=== PATIENT | female | born 1960 | race American Indian/Alaskan Native ===

== ENCOUNTER 2016-10-01 23:25 | Inpatient (IN) | payer OTHER ==
[2016-10-02] MEDS ORDERED: ZOFRAN IV ONE ×2 (01:22→04:35)
[2016-10-02] MEDS ORDERED: MORPHINE IV ONE ×2 (01:22→04:00)
--- NOTE | 2016-10-02 01:22 | Emergency Department Report ---
HPI - General Chief Complaint: Chest Pain Time Seen by Provider: 10/02/16 00:46 - HPI HPI: This is a 55-year-old Afro-Turkmen female presents to the emergency department by EMS from home with complaint of upper abdominal/epigastric pain has been going on for the past few hours after it started acutely at home. It is associated with some nausea, vomiting and diaphoresis. Patient did not take anything and did not receive anything for symptoms prior to presentation. Patient resents hypothermic after she was out in the rain and spent some time in the cold during transfer. Patient has a history of hypertension, DVT, kidney stones with ureteral stents. 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 She is on Eloquist but stopped taking it a few days ago as instructed as she is supposed to have a changing out of her ureteral stents the day after tomorrow by Dr. Seo, her urologist. Primary care doctor is a Dr. Rodriguez. She denies any dysuria, diarrhea, back pain, vaginal bleeding or discharge. No recent travel or sick contacts at home. She denies any history of DC, CVA. ED Past Medical Hx - Past Medical History Previous Medical History?: Yes Hx Hypertension: Yes (X 10 YRS) Hx Heart Attack/AMI: No Hx Congestive Heart Failure: Yes (2008) Hx Deep Vein Thrombosis: Yes (LEFT LEG 2011) Hx Renal Disease: Yes (CKD stage II) Hx Seizures: No Hx Kidney Stones: Yes Hx Asthma: No Hx HIV: No Additional medical history: Right BKA - Surgical History Past Surgical History?: Yes Additional Surgical History: August 2015 Arterial by-pass - Social History Smoking Status: Unknown if ever smoked Substance Use Type: None - Medications Home Medications: Home Medications Medication Instructions Recorded Confirmed Last Taken Type Amlodipine Besylate 2.5 mg PO DAILY 09/01/15 10/01/16 06/07/16 10:00 History 2.5MG Carvedilol 6.25 mg PO BID 09/01/15 10/01/16 06/07/16 10:00 History 6.25MG hydrALAZINE [Apresoline TAB] 25 mg PO TID 09/01/15 10/01/16 06/07/16 10:00 History 25MG Apixaban [Eliquis] 5 mg PO BID #60 tablet 05/10/16 10/01/16 09/29/16 Rx Cholecalciferol (Vitamin D3) 50,000 unit PO QWEEK 10/01/16 10/01/16 Unknown History [Vitamin D3] HYDROcodone/APAP 10-325 [[place] 1 tab PO Q6H PRN 10/01/16 10/01/16 Unknown History 10-325 mg TAB] ED Review of Systems ROS: Stated complaint: ABD PAIN Other details as noted in HPI Comment: All other systems reviewed and negative Constitutional: diaphoresis. denies: fever Eyes: denies: eye pain, eye discharge, vision change ENT: denies: ear pain, throat pain Respiratory: denies: cough, shortness of breath, wheezing Cardiovascular: denies: chest pain, palpitations Gastrointestinal: abdominal pain, nausea, vomiting Genitourinary: denies: urgency, dysuria, discharge Musculoskeletal: denies: back pain, joint swelling, arthralgia Skin: denies: rash, lesions Neurological: denies: headache, weakness, paresthesias Physical Exam - Physical Exam Vital Signs: Vital Signs 10/02/16 00:38 Temperature 90.8 F L Pulse Rate 82 Respiratory 20 Rate Blood Pressure 200/100 O2 Sat by Pulse 100 Oximetry Physical Exam: GENERAL: The patient is well-developed well-nourished. Patient has uncomfortable but is awake and alert. HEENT: Normocephalic. Atraumatic. Extraocular motions are intact. Patient has moist mucous membranes. Pupils equal reactive to light bilaterally. NECK: Supple. Trachea is midline. CHEST/LUNGS: Clear to auscultation. There is no respiratory distress noted. HEART/CARDIOVASCULAR: Regular. There is no tachycardia. There is no gallop rub or murmur. ABDOMEN: Abdomen is soft. Patient has upper abdominal and/or epigastric tenderness to palpation. No guarding or rebound tenderness. Patient has normal bowel sounds. There is no abdominal distention. SKIN: There is no rash. There is no diaphoresis. NEURO: The patient is awake, alert, and oriented. The patient is cooperative. The patient has no focal neurologic deficits. The patient has normal speech. MUSCULOSKELETAL: There is no tenderness or deformity. Chronic bilateral lower extremity amputation. There is no evidence of acute injury. ED Course Vital Signs 10/02/16 00:38 Temperature 90.8 F L Pulse Rate 82 Respiratory 20 Rate Blood Pressure 200/100 O2 Sat by Pulse 100 Oximetry ED Medical Decision Making - Lab Data Result diagrams: 10/02/16 01:03 10/02/16 01:03 - EKG Data -: EKG Interpreted by Me EKG shows normal: sinus rhythm, axis, intervals, QRS complexes (LVH), ST-T waves (nonspecific T waves) Rate: normal - EKG Data When compared to previous EKG there are: previous EKG unavailable Interpretation: LVH - Radiology Data Radiology results: report reviewed, image reviewed interpreted by me: Chest x-ray did not show any acute process. Heart is normal shape and size. No effusions. No pneumothorax. No signs of pneumonia seen. Abdominal x-ray shows some nonspecific bowel gas but no obvious signs of obstruction. CT of the abdomen and pelvis with IV contrast shows that the liver is enlarged and heterogenous in density suggesting fatty infiltration. No discrete masses seen. There are bilateral kidney cysts. There are stones in the lower pole left kidney. There is a left ureteral stent. There is no hydronephrosis. Stent is in good position. There are dilated and fluid-filled loops of small bowel without specific evidence of obstruction suggesting enteritis and generalized ileus. There is a large amount of stool in colon. There is no colonic obstruction. The appendix is normal. There is calcified plaque in the abdominal aorta. There is no aneurysm. Uterus and ovaries are unremarkable. There is no ascites, free air, abscess or adenopathy. - Medical Decision Making 55-year-old female presents with acute upper abdominal pain, nausea and vomiting. Patient's labs show a leukocytosis of about 20,000. Patient might have a mild UTI but it is not significant that I would think would cause a moderate to significant leukocytosis. Patient's vitals did not show any fever but the patient does have hypertensive urgency with a systolic greater than 200. He shouldn't has a bicarbonate level of about 19. She does have hyperglycemia but does not appear to have DKA or HHNK. Patient given IV fluid, Zofran, pain medication but has required multiple doses of all of that and still continues to have discomfort and nausea with vomiting. CT of the abdomen and pelvis shows potential for ileus versus enteritis. Patient has blood and urine culture sent and was started on some Levaquin for UTI and possible intra- abdominal pathology. Patient continues to have elevated blood pressure. She will be admitted to hospital for intractable nausea, vomiting and possible ileus. - Differential Diagnosis ileus, bowel obstruction, pancreatitis, enteritis, colitis Critical Care Time: No Critical care attestation.: If time is entered above; I have spent that time in minutes in the direct care of this critically ill patient, excluding procedure time. ED Disposition Clinical Impression: Intractable abdominal pain Intractable nausea and vomiting Qualifiers: Vomiting type: unspecified Qualified Code(s): R11.2 - Nausea with vomiting, unspecified Leukocytosis Qualifiers: Leukocytosis type: unspecified Qualified Code(s): D72.829 - Elevated white blood cell count, unspecified UTI (urinary tract infection) Qualifiers: Urinary tract infection type: acute cystitis Hematuria presence: without hematuria Qualified Code(s): N30.00 - Acute cystitis without hematuria Disposition: OP ADMITTED IP TO THIS HOSP Is pt being admited?: Yes Condition: Stable Time of Disposition: 05:59
[2016-10-02 01:33] LABS: Hemoglobin 13.1 gm/dl (10.1-14.3); Mean Corpuscular HGB Conc 32 % (30-34); Mean Corpuscular Hemoglobin 29 pg (28-32); Mean Corpuscular Volume 91 fl (79-97); Platelet Count 297 K/mm3 (140-440); Red Cell Distribution Width 15.1 % (13.2-15.2)
[2016-10-02 01:38] LABS: White Blood Count 21.2 K/mm3 (4.5-11.0)
[2016-10-02 02:07] LABS: Alanine Aminotransferase 20 units/L (7-56); Albumin 4.3 g/dL (3.9-5); Albumin/Globulin Ratio 1.3 %; Alkaline Phosphatase 79 units/L (35-129); BUN/Creatinine Ratio 25.45; Bilirubin,Total 0.3 mg/dL (0.1-1.2); Blood Urea Nitrogen 28 mg/dL (7-17); Calcium 9.9 mg/dL (8.4-10.2); Carbon Dioxide 19 mmol/L (22-30); Chloride 101.4 mmol/L (98-107); Glucose 254 mg/dL (65-100); Potassium 3.5 mmol/L (3.6-5.0); Sodium 142 mmol/L (137-145); Total Protein 7.7 g/dL (6.3-8.2)
[2016-10-02 02:08] LABS: Anion Gap 25 mmol/L
[2016-10-02 02:26] LABS: Bacteria,Urine 1+ /HPF (Negative); Bilirubin,Urine NEG (Negative); Blood,Urine MOD (Negative); Ketones,Urine TR mg/dL (Negative); Leukocyte Esterase,Urine LG (Negative); Mucus,Urine FEW /HPF; Nitrite,Urine NEG (Negative); Urobilinogen,Urine < 2.0 mg/dL (<2.0)
[2016-10-02 02:31] LABS: INR 1.04 (0.87-1.13); Partial Thromboplastin Time 31.8 Sec. (24.2-36.6)
[2016-10-02] MEDS ORDERED: LEVAQUIN 750MG/150ML 150 ML IV ONE (02:54)
--- NOTE | 2016-10-02 03:04 | Admit Criteria Form ---
Admission Criteria Documentation: CHEST PAIN Clinical Indications for Admission to Inpatient Care (Place 'X' for any and all applicable criteria): Admission is indicated for chest pain and ANY ONE of the following(1)(2)(3)(4)(5 ): [ ]I. Angina with acute coronary syndrome (Also use Myocardial Infarction or Angina guideline) [ ]II. Hemodynamic instability [ ]III. Angina needing acute intervention as indicated by ALL of the following( 11)(12): [ ]a) Unstable angina is present as indicated by angina that is ANY ONE of the following: [ ]i) New onset [ ]ii) Nocturnal [ ]iii) Prolonged at rest [ ]iv) Progressive [ ]b) Angina warrants acute intervention as indicated by ANY ONE of the following: [ ]i) Recurrent angina (e.g, not responding as previously to treatment) [ ]ii) Angina at rest or with low-level activities despite initial medical therapy [ ]iii) New or presumably new ST-segment depression on ECG [ ]iv) Signs or symptoms of heart failure (eg, dyspnea, pulmonary edema) [ ]v) New or worsening mitral regurgitation [ ]vi) Hemodynamic instability [ ]vii) Dangerous arrhythmia (eg, sustained ventricular tachycardia) [ ]viii) History of percutaneous coronary intervention within 6 months [ ]ix) History of coronary artery bypass graft surgery [ ]x) CHINEDU risk score of 2 or greater[A] [ ]xi) History of Diabetes(14) [ ]xii) High-risk cardiac ischemia findings on noninvasive testing (e.g, echocardiogram, treadmill testing, nuclear scan) [ ]xiii) Chronic renal insufficiency (ie, estimated GFR less than 60 mL/min/1.732m) [ ]xiv) Left ventricular ejection fraction less than 40% [ ]IV. Evidence of DE (eg, cardiac biomarkers positive, ST-segment elevation on ECG) also use Myocardial Infarction Criteria Form. [ ]V. Pulmonary edema [ ]. Respiratory distress [ ]VII. Chest pain indicative of serious diagnosis other than coronary artery disease (eg, aortic dissection) [ ]VIII. Contraindications and/or Inappropriate clinical situations for Observational Care in patients with Chest Pain, when ANY ONE of the following is required: [ ]a) Patient with risk factor for pulmonary embolism, acute coronary syndrome and myocardial infarction (18) [ ]b) Patient with Pulmonary embolism require an average LOS of 4.3 days, therefore emergency department observation management is inappropriate 18,23 [ ]c) Painful condition/s in the elderly, have the highest rate of recidivism after emergency department observation management (10.8%) 20,21,22 [ ]d) Elevated cardiac biomarker requires intensive and exhaustive care (19) [ X]IX. General contraindications and/or Inappropriate clinical situations for Observational Care in patients with Chest Pain, when ANY ONE of the following is required: [ ]a) Prediction of prolongation of LOS based on ANY ONE of the following may be considered as a contraindication for observational care 2, 3, 4, 5, 6, 7, 8, 9, 10, 11 [ ]i) Age > 65 yrs. [ ]ii) Patient arriving by ambulance [ ]iii) Patient with high acuity [ ]iv) Patient requiring vital sign monitoring [ ]v) Patient on IV medication [X ]b) Systolic blood pressures 180mmHg 3,12 [ ]c) Patient with altered mental status including delirium and other alteration of consciousness, (3) [ ]d) Patient whose discharge disposition will be to a long-term home or rehabilitation home should not be managed in Emergency Department Observation Unit. CMS rule requires 3 days hospital stay before such placement. 3,13 [ ]e) Patient with failure to thrive due to broad array of etiologies 3,16,17 [ ]f) Inability to ambulate 3,14 Extended stay beyond goal length of stay may be needed for (1)(28): [ ]a) Specific condition diagnosed after evaluation (eg, pulmonary embolism, aortic dissection) [ ]b) Unstable angina [ ]c) Continued suspicion of acute coronary syndrome with inability to complete needed cardiac evaluation (eg, patient clinically unable to undergo stress testing) [ ]d) Myocardial infarction (Contents from ANGINA and CHEST PAIN clinical indications for admission to inpatient care have been integrated in this form) The original [email or web address] content created by [employer] has been revised. The portions of the content which have been revised are identified through the use of italic text or in bold, and [facility] has neither reviewed nor approved the modified material. All other unmodified content is copyright [email or web address]. Please see references footnoted in the original [email or web address] edition 2016 Admission Criteria Met: Yes
[2016-10-02 03:21] LABS: Anisocytosis 1+; Basophils % (Manual) 0 % (0.0-1.8); Blastocytes % (Manual) 0 %; Diff Status Complete
[2016-10-02] MEDS ORDERED: MORPHINE ONE (03:58)
[2016-10-02] MEDS ORDERED: APRESOLINE IV ONE ×2 (04:00→05:24)
--- NOTE | 2016-10-02 04:16 | Cat Scan Report ---
FINAL REPORT PROCEDURE: CT ABDOMEN PELVIS W CON TECHNIQUE: Computerized axial tomography of the abdomen and pelvis was performed after the IV injection of iodinated nonionic contrast. HISTORY: Abd pain COMPARISON: No prior studies are available for comparison. FINDINGS: Visualized lower thorax: There is focal pleural thickening at the right lung base which is nonspecific.. Liver: The liver is enlarged and heterogeneous in density suggesting fatty infiltration. No discrete mass is seen.. Spleen: Normal size and attenuation. Gallbladder and biliary system: Normal. Pancreas: Normal. Adrenals: Normal. Kidneys: There are bilateral kidney cysts. There are stones in the lower pole of the left kidney. There is a left ureteral stent. There is no hydronephrosis. Stent is in good position.. GI tract: There are dilated and fluid-filled loops of small bowel without specific evidence of obstruction suggesting enteritis and generalized ileus. There is a large amount of stool in the colon. There is no colonic obstruction. The appendix is normal.. Lymph nodes and mesentery: Normal. Vasculature: There is calcified plaque in the abdominal aorta. There is no aneurysm.. Bladder: Normal. Reproductive organs: Uterus and ovaries are unremarkable.. Peritoneum: There is no ascites, free air, abscess or adenopathy.. Musculoskeletal structures: No significant abnormality. Other: None. IMPRESSION: The liver is enlarged and heterogeneous in density suggesting fatty infiltration. No discrete mass is seen.. There are bilateral kidney cysts. There are stones in the lower pole of the left kidney. There is a left ureteral stent. There is no hydronephrosis. Stent is in good position.. There are dilated and fluid-filled loops of small bowel without specific evidence of obstruction suggesting enteritis and generalized ileus. There is a large amount of stool in the colon. There is no colonic obstruction. The appendix is normal.. There is calcified plaque in the abdominal aorta. There is no aneurysm.. Uterus and ovaries are unremarkable.. There is no ascites, free air, abscess or adenopathy..
[2016-10-02] MEDS ORDERED: DILAUDID IV ONE (04:35)
--- NOTE | 2016-10-02 05:21 | XRay Report ---
FINAL REPORT PROCEDURE: XR CHEST 1V AP TECHNIQUE: Chest radiograph anteroposterior view. CPT 49564 HISTORY: CP COMPARISON: No prior studies are available for comparison. FINDINGS: Heart: Normal. Mediastinum/Vessels: Normal. Lungs/Pleural space: Normal. Bony thorax: No acute osseous abnormality. Life support devices: None. IMPRESSION: No acute cardiopulmonary abnormality.
--- NOTE | 2016-10-02 05:26 | XRay Report ---
FINAL REPORT PROCEDURE: XR ABDOMEN 2V TECHNIQUE: Abdominal series, including supine and upright AP views. HISTORY: Abd pain COMPARISON: No prior studies are available for comparison. FINDINGS: Bowel gas pattern:Nonobstructive . Masses or calcifications:None . Bony structures:No significant abnormality . Pneumoperitoneum:None . Other:There is a left ureteral stent which appears be in proper position.. IMPRESSION: There is no bowel obstruction, fecal impaction, bowel wall thickening or free air. There is a left ureteral stent in proper position..
[2016-10-02] MEDS ORDERED: DILAUDID IV PRN (05:43)
[2016-10-02] MEDS ORDERED: APRESOLINE IV PRN (05:44)
--- NOTE | 2016-10-02 06:01 | History and Physical Report ---
History of Present Illness Date of examination: 10/02/16 History of present illness: 55-year-old woman with a history of hypertension, peripheral vascular disease comes emergency room with complaints of abdominal pain which started in the mid abdomen and going down to the lower abdomen, intensity 7/10, some relief with IV pain medication given. She admits to nausea vomiting, unable to tolerate oral intake. She denies dysuria. Patient is scheduled for stent exchange tomorrow with urology Patient denies chest pain, palpitation, shortness of breath, cough, hematochezia , dysuria, frequency, focal weakness, dysarthria, fever chills, polydipsia polyuria, hot or cold intolerance, easy bruisability, or rash or bleeding from mucosal membrane, rhinorrhea, epistaxis, earache, tinnitus, blurry vision, eye discharge, anxiety, depression. Other review of systems negative PAST SURGICAL HISTORY: Femoropopliteal bypass, right leg amputation SOCIAL HISTORY: Occasional cigarettes, no alcohol or drugs FAMILY HISTORY: Hypertension Medications and Allergies Allergies Allergy/AdvReac Type Severity Reaction Status Date / Time No Known Allergies Allergy Verified 08/24/15 10:54 Home Medications Medication Instructions Recorded Confirmed Last Taken Type Amlodipine Besylate 2.5 mg PO DAILY 09/01/15 10/01/16 06/07/16 10:00 History 2.5MG Carvedilol 6.25 mg PO BID 09/01/15 10/01/16 06/07/16 10:00 History 6.25MG hydrALAZINE [Apresoline TAB] 25 mg PO TID 09/01/15 10/01/16 06/07/16 10:00 History 25MG Apixaban [Eliquis] 5 mg PO BID #60 tablet 05/10/16 10/01/16 09/29/16 Rx Cholecalciferol (Vitamin D3) 50,000 unit PO QWEEK 10/01/16 10/01/16 Unknown History [Vitamin D3] HYDROcodone/APAP 10-325 [[place] 1 tab PO Q6H PRN 10/01/16 10/01/16 Unknown History 10-325 mg TAB] Active Meds: Active Medications Hydralazine HCl (Apresoline) 5 mg IV Q6H PRN PRN Reason: Hypertension Hydromorphone HCl (Dilaudid) 2 mg IV Q4H PRN PRN Reason: Pain Sodium Chloride (Nacl 0.45% 1000 Ml) 1,000 mls @ 100 mls/hr IV DIRECT KANA Exam - Physical Exam Narrative exam: Gen. appearance: Patient lying in bed, no apparent distress HEENT: Normocephalic, atraumatic, pupils equally round and reactive to light, extraocular movement intact, and no sclericterus,. No JVD or thyromegaly or nodule,neck supple, no carotid bruit ,mucous membranes moist, no exudate or erythema Heart: S1, S2, regular rate and rhythm Lungs: Clear to auscultation bilaterally, breathing comfortable Abdomen: Positive bowel sounds, tender also on the right side of the abdomen and lower abdominal wall, nondistended, no organomegaly Extremity: No edema, cyanosis, clubbing Skin: No rash, nodules, warm, dry Neuro: Oriented 3, cranial nerves II-12 intact, speech is fluent, motor and sensory intact - Constitutional Vitals: Temp Pulse Resp BP Pulse Ox 97.8 F 78 20 142/96 100 10/02/16 04:00 10/02/16 05:31 10/02/16 05:28 10/02/16 05:31 10/02/16 05:28 Results - Labs CBC & Chem 7: 10/08/16 05:40 10/08/16 05:40 Labs: Abnormal lab results 10/02/16 10/02/16 10/02/16 Range/Units 01:03 01:03 01:50 WBC 21.2 H (4.5-11.0) K/mm3 Monocytes % (Manual) 12.0 H (0.0-7.3) % Seg Neutrophils # Man 12.9 H (1.8-7.7) K/mm3 Monocytes # (Manual) 2.5 H (0.0-0.8) K/mm3 Eosinophils # (Manual) 0.8 H (0.0-0.4) K/mm3 Potassium 3.5 L (3.6-5.0) mmol/L Carbon Dioxide 19 L (22-30) mmol/L BUN 28 H (7-17) mg/dL Glucose 254 H (65-100) mg/dL Urine WBC (Auto) 19.0 H (0.0-6.0) /HPF - Imaging and Cardiology CT scan - abdomen: report reviewed CT scan - pelvis: report reviewed Assessment and Plan Abdominal pain secondary to enteritis Urinary tract infection Hypokalemia Hyperglycemia History of kidney stone with stent, scheduled for stent replacement in the morning Hypertension uncontrolled Peripheral vascular disease Admits medicine Start IV fluids, IV dilaudid, IV rocephin Replete potassium, follow cultures, check HbAIc Consult urology Continue appropriate outpatient medications and start DVT with eliquis
[2016-10-02] MEDS: NACL 0.45% 1000 ML 1,000 ML IV SCH (06:24)
[2016-10-02] MEDS ORDERED: NACL 0.45% 1000 ML 1,000 ML IV SCH (07:00)
[2016-10-02] MEDS ORDERED: DULCOLAX PR PRN (08:51)
[2016-10-02] MEDS ORDERED: ZOFRAN IV PRN (08:51)
[2016-10-02] MEDS ORDERED: TYLENOL PO PRN (08:51)
[2016-10-02] MEDS ORDERED: MILK OF MAGNESIA PO PRN (08:51)
[2016-10-02] MEDS ORDERED: NORVASC PO SCH (10:00)
[2016-10-02] MEDS ORDERED: ROCEPHIN/NS 1 GM/50 ML 50 ML IV SCH (10:00)
[2016-10-02] MEDS: ELIQUIS PO SCH ×2 (10:38→23:13)
[2016-10-02] MEDS: COREG PO SCH ×2 (10:40→23:14)
[2016-10-02] MEDS: DILAUDID IV PRN ×3 (10:41→18:04)
--- NOTE | 2016-10-02 10:48 | Event Note ---
Date: 10/02/16 Patient seen and examined, in moderate distress secondary to pain-abdominal left lower quad. Pain medicine being administered. Call placed to Urology office.
--- NOTE | 2016-10-02 11:51 | Consultation ---
[id number] Illness 55-year-old woman with a history of hypertension, peripheral vascular disease comes emergency room with complaints of abdominal pain which started in the mid abdomen and going down to the lower abdomen, intensity 7/10, some relief with IV pain medication given. She admits to nausea vomiting, unable to tolerate oral intake. She denies dysuria. Patient is scheduled for stent exchange by Dr. Castellanos in our group CTAP no hydronephrosis, stents in good postion large amount of stool, dilated loops of bowel A/P abd pain(LLQ) appears GI (based on CT) will discuss with Dr. Castellanos PT SEEN BY DR. CASTELLANOS Medications and Allergies Allergies Allergy/AdvReac Type Severity Reaction Status Date / Time No Known Allergies Allergy Verified 08/24/15 10:54 Home Medications Medication Instructions Recorded Confirmed Last Taken Type Amlodipine Besylate 2.5 mg PO DAILY 09/01/15 10/01/16 06/07/16 10:00 History 2.5MG Carvedilol 6.25 mg PO BID 09/01/15 10/01/16 06/07/16 10:00 History 6.25MG hydrALAZINE [Apresoline TAB] 25 mg PO TID 09/01/15 10/01/16 06/07/16 10:00 History 25MG Apixaban [Eliquis] 5 mg PO BID #60 tablet 05/10/16 10/01/16 09/29/16 Rx Cholecalciferol (Vitamin D3) 50,000 unit PO QWEEK 10/01/16 10/01/16 Unknown History [Vitamin D3] HYDROcodone/APAP 10-325 [[place] 1 tab PO Q6H PRN 10/01/16 10/01/16 Unknown History 10-325 mg TAB] Active Meds: Active Medications Acetaminophen (Tylenol) 650 mg PO Q4H PRN PRN Reason: Pain MILD(1-3)/Fever >100.5/ROSA Amlodipine Besylate (Norvasc) 2.5 mg PO DAILY [facility] Last Admin: 10/02/16 10:39 Dose: 2.5 mg Apixaban (Eliquis) 5 mg PO BID [facility] Last Admin: 10/02/16 10:38 Dose: 5 mg Bisacodyl (Dulcolax) 10 mg [place] QDAY PRN PRN Reason: Constipation unrelieved by MOM Carvedilol (Coreg) 6.25 mg PO BID [facility] Last Admin: 10/02/16 10:40 Dose: 6.25 mg Ergocalciferol (Vitamin D2) 50,000 unit PO We [facility] Hydralazine HCl (Apresoline) 5 mg IV Q6H PRN PRN Reason: Hypertension Hydromorphone HCl (Dilaudid) 2 mg IV Q4H PRN PRN Reason: Pain Last Admin: 10/02/16 10:41 Dose: 2 mg Sodium Chloride (Nacl 0.45% 1000 Ml) 1,000 mls @ 100 mls/hr IV DIRECT [facility] Last Admin: 10/02/16 06:24 Dose: 100 mls/hr Potassium Chloride (Kcl 10meq/100ml) 100 mls @ 100 mls/hr IV Q1H [facility] Stop: 10/02/16 12:59 Ceftriaxone Sodium (Rocephin/Ns 1 Gm/50 Ml) 50 mls @ 100 mls/hr IV Q24HR [facility] Last Admin: 10/02/16 10:38 Dose: 100 mls/hr Magnesium Hydroxide (Milk Of Magnesia) 30 ml PO Q4H PRN PRN Reason: Constipation Ondansetron HCl (Zofran) 4 mg IV Q4H PRN PRN Reason: N/V unrelieved by Reglan Exam - Constitutional Vitals: Temp Pulse Resp BP Pulse Ox 98.5 F 78 18 142/96 97 10/02/16 10:00 10/02/16 10:39 10/02/16 10:00 10/02/16 10:39 10/02/16 10:00 Results - Labs CBC & Chem 7: 10/03/16 07:33 10/03/16 08:19 Labs: Abnormal lab results 10/02/16 Range/Units 06:26 Lactic Acid 3.2 H* (0.7-2.0) mmol/L
[2016-10-02] MEDS: KCL 10MEQ/100ML 100 ML IV SCH ×2 (12:12→14:33)
--- NOTE | 2016-10-02 17:07 | Anesthesia Consultation ---
Anesthesia Consult and Med Hx Date of service: 10/02/16 - Airway Anesthetic Teeth Evaluation: Good ROM Head & Neck: Adequate Mental/Hyoid Distance: Adequate Mallampati Class: Class II Intubation Access Assessment: Probably Good - Pre-Operative Health Status ASA Pre-Surgery Classification: ASA3 Proposed Anesthetic Plan: General - Pulmonary Hx Smoking: Yes (occasionally cigaretes) Hx Asthma: No Hx Sleep Apnea: No (LILIANA PRE SCREEN LOW RISK) - Cardiovascular System Hx Hypertension: Yes (X 10 YRS) Hx Coronary Artery Disease: Yes Hx Heart Attack/AMI: No Hx Percutaneous Transluminal Coronary Angioplasty (PTCA): Yes Hx Cardia Arrhythmia: No Hx Peripheral Vascular Disease: Yes (LEFT FEMORAL STENT,RT AKA) - Central Nervous System Hx Neuromuscular Disorder: No Hx Seizures: No CVA: No Hx Psychiatric Problems: No - Gastrointestinal Hx Gastroesophageal Reflux Disease: No - Endocrine Hx Renal Disease: Yes (CKD stage II, UTI) Hx End Stage Renal Disease: No Hx Non-Insulin Dependent Diabetes: No Hx Thyroid Disease: No - Hematic Hx Anemia: Yes - Other Systems Hx Cancer: No Hx Obesity: No - Additional Comments Anesthesia Medical History Comments: Scheduled for stent exchange with on 10/03/16
[2016-10-02] MEDS ORDERED: NACL 0.9% 250ML 250 ML IV ONE (22:57)
[2016-10-02] MEDS ORDERED: NACL 0.9% 1000 ML 1,000 ML ONE (22:57)
[2016-10-03] MEDS: NACL 0.45% 1000 ML 1,000 ML IV SCH (01:00)
[2016-10-03] MEDS ORDERED: NACL 0.9% 250ML 250 ML IV ONE ×4 (01:16→06:31)
[2016-10-03] MEDS ORDERED: VITAMIN D2 PO SCH (06:31)
[2016-10-03] MEDS ORDERED: NACL 0.9% 1000 ML 1,000 ML IV SCH (07:00)
[2016-10-03] MEDS ORDERED: VERSED IV NR (07:00)
[2016-10-03] MEDS ORDERED: PEPCID IV NR (07:00)
[2016-10-03 08:05] LABS: Hematocrit 40.9 % (30.3-42.9); Hemoglobin 13.1 gm/dl (10.1-14.3); Mean Corpuscular HGB Conc 32 % (30-34); Mean Corpuscular Hemoglobin 30 pg (28-32); Mean Corpuscular Volume 92 fl (79-97); Platelet Count 228 K/mm3 (140-440); Red Blood Count 4.44 M/mm3 (3.65-5.03); Red Cell Distribution Width 15.5 % (13.2-15.2); White Blood Count 17.8 K/mm3 (4.5-11.0)
[2016-10-03] MEDS ORDERED: LEVAQUIN 750MG/150ML 150 ML IV SCH (08:30)
--- NOTE | 2016-10-03 08:47 | XRay Report ---
KUB: Comparison is made to prior study of October 02. There is a left internal ureteral stent. Due to overlying gas the previously identified lower pole left renal calculi are difficult to assess. There is a mild increase in the amount and distribution of small bowel gas. No free air. A nasogastric tube has been introduced in good position. Contrast in the urinary bladder from recent CT. Impression: 1. Left renal stent. 2. Nonspecific increased bowel gas pattern.
--- NOTE | 2016-10-03 08:49 | XRay Report ---
Portable chest: Comparison is made to October 02. There is interval development of left basilar atelectasis with a small amount of linear atelectasis also at the medial right base. The overall interstitial pattern is generally increased similar to prior study. There has been interval placement of a nasogastric tube. Impressions: 1. Chronic interstitial disease. 2. Bibasilar atelectasis.
[2016-10-03 08:50] LABS: BUN/Creatinine Ratio 18.06; Calcium 8.6 mg/dL (8.4-10.2); Chloride 101.3 mmol/L (98-107); Potassium 5.5 mmol/L (3.6-5.0)
[2016-10-03] MEDS ORDERED: NACL 0.9% 1000 ML 1,000 ML IV ONE (09:00)
[2016-10-03] MEDS: COREG PO SCH (09:14)
[2016-10-03 09:54] LABS: Blastocytes % (Manual) 0 %
[2016-10-03 09:55] LABS: Anisocytosis 1+; Basophils % (Manual) 0 % (0.0-1.8); Diff Status Complete; Ovalocytes Few
[2016-10-03] MEDS ORDERED: DILAUDID IV ONE (09:59)
[2016-10-03] MEDS: FLAGYL 500 MG/100 ML 100 ML IV SCH ×2 (10:21→21:40)
[2016-10-03] MEDS: ELIQUIS PO SCH (11:46)
[2016-10-03] MEDS: LEVAQUIN 750MG/150ML 150 ML IV SCH (11:46)
--- NOTE | 2016-10-03 12:06 | Consultation ---
History of Present Illness Consult date: 10/03/16 Reason for consult: abdominal pain Chief complaint: Abdominal pain. - History of present illness History of present illness: 55 years old female admitted to the hospital because of sudden onset of abdominal pain. Patient with history of peripheral vascular disease and status post AKA right lower extremity. Patient also has a stent the left ureter. CT scan of the abdomen and pelvis showed tended stomach with generalized ileus. She was admitted to [place] morning an NG tube was put in place that she has not improved. Her lactic acid went to 5.7 today from 2.5 yesterday. Past History Past Medical History: hypertension, other (peripheral vascular disease) Past Surgical History: Other (AKA right lower extremity. Femoral popliteal bypass. Left ureteral stent.) Social history: smoking Medications and Allergies Allergies Allergy/AdvReac Type Severity Reaction Status Date / Time No Known Allergies Allergy Verified 08/24/15 10:54 Home Medications Medication Instructions Recorded Confirmed Last Taken Type Amlodipine Besylate 2.5 mg PO DAILY 09/01/15 10/01/16 06/07/16 10:00 History 2.5MG Carvedilol 6.25 mg PO BID 09/01/15 10/01/16 06/07/16 10:00 History 6.25MG hydrALAZINE [Apresoline TAB] 25 mg PO TID 09/01/15 10/01/16 06/07/16 10:00 History 25MG Apixaban [Eliquis] 5 mg PO BID #60 tablet 05/10/16 10/01/16 09/29/16 Rx Cholecalciferol (Vitamin D3) 50,000 unit PO QWEEK 10/01/16 10/01/16 Unknown History [Vitamin D3] HYDROcodone/APAP 10-325 [[place] 1 tab PO Q6H PRN 10/01/16 10/01/16 Unknown History 10-325 mg TAB] Active Meds: Active Medications Acetaminophen (Tylenol) 650 mg PO Q4H PRN PRN Reason: Pain MILD(1-3)/Fever >100.5/ROSA Amlodipine Besylate (Norvasc) 2.5 mg PO DAILY [facility] Last Admin: 10/02/16 10:39 Dose: 2.5 mg Apixaban (Eliquis) 5 mg PO BID [facility] Last Admin: 10/03/16 11:46 Dose: Not Given Bisacodyl (Dulcolax) 10 mg VA QDAY PRN PRN Reason: Constipation unrelieved by MOM Carvedilol (Coreg) 6.25 mg PO BID [facility] Last Admin: 10/03/16 09:14 Dose: Not Given Ergocalciferol (Vitamin D2) 50,000 unit PO We [facility] Famotidine (Pepcid) 20 mg IV PREOP NR Stop: 10/03/16 23:59 Hydralazine HCl (Apresoline) 5 mg IV Q6H PRN PRN Reason: Hypertension Hydromorphone HCl (Dilaudid) 2 mg IV Q4H PRN PRN Reason: Pain Last Admin: 10/02/16 18:04 Dose: 2 mg Sodium Chloride (Nacl 0.45% 1000 Ml) 1,000 mls @ 100 mls/hr IV DIRECT [facility] Last Admin: 10/03/16 01:00 Dose: 100 mls/hr Sodium Chloride (Nacl 0.9% 1000 Ml) 1,000 mls @ 75 mls/hr IV DIRECT [facility] Last Admin: 10/03/16 11:46 Dose: 75 mls/hr Metronidazole (Flagyl 500 Mg/100 Ml) 100 mls @ 100 mls/hr IV Q8HR [facility] Last Admin: 10/03/16 10:21 Dose: 100 mls/hr Levofloxacin/Dextrose (Levaquin 750mg/150ml) 150 mls @ 100 mls/hr IV Q48HR [facility] PRN Reason: Protocol Last Admin: 10/03/16 11:46 Dose: 100 mls/hr Magnesium Hydroxide (Milk Of Magnesia) 30 ml PO Q4H PRN PRN Reason: Constipation Last Admin: 10/02/16 23:10 Dose: 30 ml Midazolam HCl (Versed) 2 mg IV PREOP NR Stop: 10/03/16 23:59 Ondansetron HCl (Zofran) 4 mg IV Q4H PRN PRN Reason: N/V unrelieved by Reglan Review of Systems All systems: negative (present complaint.) Exam Vital Signs Temp Pulse Resp BP 97.7 F 84 18 140/90 09/28/16 12:00 09/28/16 12:00 09/28/16 12:00 09/28/16 12:00 - General physical appearance Positive: well developed, well nourished, moderate distress - Eyes Positive: normal occular movement - ENT Positive: normal nares, normal mucosa, no congestion - Neck Positive: no masses, trachea midline - Respiratory Positive: normal expansion, clear to auscultation - Cardiovascular Rhythm: regular Heart Sounds: Present: S1 & S2 - Extremities Extremities: no ischemia Extremity abnormal: other (status post right or extremity AKA.) - Breasts Breasts: deferred - Abdomen Abdomen: Present: tender, bowel sounds hypoactive, distended - Genitourinary Female Genitourinary: deferred - Integumentary no rash, no growths, no abnormal pigmentation - Neurologic Neurologic: alert and oriented to time, place and person, motor strength and sensation are grossly intact - Psychiatric Psychiatric: appropriate mood/affect, intact judgment & insight Results - Labs 10/03/16 07:33 10/03/16 08:19 Abnormal lab results 10/03/16 10/03/16 10/03/16 Range/Units 07:33 08:19 08:19 WBC 17.8 H (4.5-11.0) K/mm3 RDW 15.5 H (13.2-15.2) % Seg Neuts % (Manual) 28.0 L (40.0-70.0) % Lymphocytes % (Manual) 6.0 L (13.4-35.0) % Monocytes % (Manual) 12.0 H (0.0-7.3) % Lymphocytes # (Manual) 1.1 L (1.2-5.4) K/mm3 Monocytes # (Manual) 2.1 H (0.0-0.8) K/mm3 Potassium 5.5 H D (3.6-5.0) mmol/L Carbon Dioxide 17 L (22-30) mmol/L BUN 56 H (7-17) mg/dL Creatinine 3.1 H D (0.7-1.2) mg/dL Lactic Acid 5.7 H* (0.7-2.0) mmol/L Diabetes panel 10/03/16 Range/Units 08:19 Sodium 143 (137-145) mmol/L Potassium 5.5 H D (3.6-5.0) mmol/L Chloride 101.3 (98-107) mmol/L Carbon Dioxide 17 L (22-30) mmol/L BUN 56 H (7-17) mg/dL Creatinine 3.1 H D (0.7-1.2) mg/dL Glucose 93 (65-100) mg/dL Calcium 8.6 (8.4-10.2) mg/dL Calcium panel 10/03/16 Range/Units 08:19 Calcium 8.6 (8.4-10.2) mg/dL Pituitary panel 10/03/16 Range/Units 08:19 Sodium 143 (137-145) mmol/L Potassium 5.5 H D (3.6-5.0) mmol/L Chloride 101.3 (98-107) mmol/L Carbon Dioxide 17 L (22-30) mmol/L BUN 56 H (7-17) mg/dL Creatinine 3.1 H D (0.7-1.2) mg/dL Glucose 93 (65-100) mg/dL Calcium 8.6 (8.4-10.2) mg/dL Adrenal panel 10/03/16 Range/Units 08:19 Sodium 143 (137-145) mmol/L Potassium 5.5 H D (3.6-5.0) mmol/L Chloride 101.3 (98-107) mmol/L Carbon Dioxide 17 L (22-30) mmol/L BUN 56 H (7-17) mg/dL Creatinine 3.1 H D (0.7-1.2) mg/dL Glucose 93 (65-100) mg/dL Calcium 8.6 (8.4-10.2) mg/dL - Imaging Chest x-ray: report reviewed, image reviewed (with Dr. Roper.) Abdominal x-ray: report reviewed, image reviewed CT scan - abdomen: report reviewed, image reviewed Assessment and Plan IMP: Abdominal pain, rule out mesenteric ischemia. . Recommendations: Continue nothing by mouth with NG to low intermittent suction. Fluid resuscitation. Vascular surgery evaluation stat, I talked to vascular surgery service to obtain the evaluation.
--- NOTE | 2016-10-03 12:35 | Progress Note ---
Assessment and Plan ABD pain LT HYDRO / STENT / STONE - elective stent change cancelled , due to hypotension/ rapid respoinse this am - disc w/ GS and Vasc - can change stent when improved / optimized Subjective Date of service: 10/03/16 Interval history: rapid resp this am; on face mask; c/o abd pain Objective - Constitutional Vitals: Vital Signs - 12hr 10/03/16 10/03/16 10/03/16 01:15 01:50 05:10 Temperature 97.4 F L 97.4 F L Pulse Rate Pulse Rate [ 119 H 120 H 135 H Right] Respiratory 18 20 Rate Blood Pressure Blood Pressure 92/65 100/70 88/54 [Right Arm] O2 Sat by Pulse 93 87 Oximetry 10/03/16 10/03/16 10/03/16 05:46 06:27 07:40 Temperature 97.4 F L Pulse Rate Pulse Rate [ 136 H 130 H 132 H Right] Respiratory 24 Rate Blood Pressure Blood Pressure 84/53 87/57 77/53 [Right Arm] O2 Sat by Pulse 90 Oximetry 10/03/16 10/03/16 10/03/16 08:05 08:37 09:00 Temperature 97.4 F L Pulse Rate Pulse Rate [ 129 H 129 H Right] Respiratory 24 22 Rate Blood Pressure Blood Pressure 96/59 96/59 [Right Arm] O2 Sat by Pulse 94 99 Oximetry 10/03/16 10/03/16 09:14 11:52 Temperature Pulse Rate 122 H Pulse Rate [ 116 H Right] Respiratory 18 Rate Blood Pressure 81/54 Blood Pressure 85/56 [Right Arm] O2 Sat by Pulse 100 Oximetry - Labs CBC & Chem 7: 10/03/16 07:33 10/03/16 08:19 Labs: Abnormal lab results 10/03/16 10/03/16 10/03/16 Range/Units 07:33 08:19 08:19 WBC 17.8 H (4.5-11.0) K/mm3 RDW 15.5 H (13.2-15.2) % Seg Neuts % (Manual) 28.0 L (40.0-70.0) % Lymphocytes % (Manual) 6.0 L (13.4-35.0) % Monocytes % (Manual) 12.0 H (0.0-7.3) % Lymphocytes # (Manual) 1.1 L (1.2-5.4) K/mm3 Monocytes # (Manual) 2.1 H (0.0-0.8) K/mm3 Potassium 5.5 H D (3.6-5.0) mmol/L Carbon Dioxide 17 L (22-30) mmol/L BUN 56 H (7-17) mg/dL Creatinine 3.1 H D (0.7-1.2) mg/dL Lactic Acid 5.7 H* (0.7-2.0) mmol/L
[2016-10-03] MEDS ORDERED: XYLOCAINE MPF 2% ONE (13:13)
[2016-10-03] MEDS ORDERED: QUELICIN ONE (13:13)
[2016-10-03] MEDS ORDERED: ZEMURON IV ONE ×2 (13:13→17:15)
[2016-10-03] MEDS ORDERED: AMIDATE IV ONE (13:13)
[2016-10-03] MEDS ORDERED: NEO SYNEPHRINE ONE ×2 (13:20→15:06)
[2016-10-03] MEDS ORDERED: NACL 0.9% 100 ML ONE ×2 (13:21→15:55)
--- NOTE | 2016-10-03 13:25 | Event Note ---
Patient was seen by vascular surgery service. 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 They recommended an exploratory laparotomy in which they would be present to explore the Superior Mesenteric Artery. and we will remove ischemic bowel. The patient and were explained the findings, the need for operative procedures and the procedures. She requested us to perform the procedures.
[2016-10-03] MEDS ORDERED: DILAUDID ONE (13:27)
[2016-10-03] MEDS ORDERED: ROCEPHIN/NS 2 GM/100 ML 100 ML IV ONE (14:35)
[2016-10-03] MEDS ORDERED: NACL 0.9% IR ONE (14:54)
[2016-10-03] MEDS ORDERED: HEPARIN 10,000 UNITS/10 ML 1,000 UNIT in NACL 0.9% 250ML 250 ML IR ONE (14:55)
[2016-10-03] MEDS ORDERED: ePHEDrine SULFATE ONE ×2 (15:08→16:11)
[2016-10-03] MEDS ORDERED: NACL 0.9% 1000 ML 2,000 ML ONE (15:11)
[2016-10-03] MEDS ORDERED: HEPARIN 10,000 UNITS/10 ML ONE (15:11)
--- NOTE | 2016-10-03 15:16 | Consultation ---
History of Present Illness - Reason for Consult Consult date: 10/03/16 Abdominal pain Requesting physician: DAVIN MURRAY - History of Present Illness 55-year-old woman with a history of hypertension, peripheral vascular disease, right below knee amputation that ultimately required conversion to above knee amputation, and left ureteral stent who presented early on 10/02/15 with abdominal pain. The patient's abdominal pain started on 10/01/15, and she discontinued her chronic anticoagulation on Saturday in preparation for a stent exchange. Her abdominal pain worsened, causing her to present to the emergency room. She complained of nausea and vomiting, and had a CT scan performed demonstrating enteritis or possible ileus amongst other findings. She worsened clinically and general surgery saw her on 10/03/15 when her lactic acid increased. She was hypotensive and tachycardic and Dr. Murray asked vascular to evaluate the patient. Her CT was reevaluated and the superior mesenteric artery was occluded. Past History Past Medical History: hypertension, other (peripheral vascular disease) Past Surgical History: Other (AKA right lower extremity. Femoral popliteal bypass. Left ureteral stent.) Social history: smoking Medications and Allergies Allergies Allergy/AdvReac Type Severity Reaction Status Date / Time No Known Allergies Allergy Verified 08/24/15 10:54 Home Medications Medication Instructions Recorded Confirmed Last Taken Type RX: Amlodipine Besylate 2.5 mg PO DAILY 09/01/15 10/01/16 06/07/16 10:00 History 2.5MG RX: Carvedilol 6.25 mg PO BID 09/01/15 10/01/16 06/07/16 10:00 History 6.25MG RX: hydrALAZINE [Apresoline TAB] 25 mg PO TID 09/01/15 10/01/16 06/07/16 10:00 History 25MG RX: Apixaban [Eliquis] 5 mg PO BID #60 tablet 05/10/16 10/01/16 09/29/16 Rx Cholecalciferol (Vitamin D3) 50,000 unit PO QWEEK 10/01/16 10/01/16 Unknown History [Vitamin D3] RX: HYDROcodone/APAP 10-325 [[place] 1 tab PO Q6H PRN 10/01/16 10/01/16 Unknown History 10-325 mg TAB] Active Meds: Active Medications Acetaminophen (Tylenol) 650 mg PO Q4H PRN PRN Reason: Pain MILD(1-3)/Fever >100.5/ROSA Amlodipine Besylate (Norvasc) 2.5 mg PO DAILY [facility] Last Admin: 10/02/16 10:39 Dose: 2.5 mg Apixaban (Eliquis) 5 mg PO BID [facility] Last Admin: 10/03/16 11:46 Dose: Not Given Bisacodyl (Dulcolax) 10 mg OR QDAY PRN PRN Reason: Constipation unrelieved by MOM Carvedilol (Coreg) 6.25 mg PO BID [facility] Last Admin: 10/03/16 09:14 Dose: Not Given Ergocalciferol (Vitamin D2) 50,000 unit PO [facility] Famotidine (Pepcid) 20 mg IV PREOP NR Stop: 10/03/16 23:59 Hydralazine HCl (Apresoline) 5 mg IV Q6H PRN PRN Reason: Hypertension Hydromorphone HCl (Dilaudid) 2 mg IV Q4H PRN PRN Reason: Pain Last Admin: 10/02/16 18:04 Dose: 2 mg Sodium Chloride (Nacl 0.45% 1000 Ml) 1,000 mls @ 100 mls/hr IV DIRECT [facility] Last Admin: 10/03/16 01:00 Dose: 100 mls/hr Sodium Chloride (Nacl 0.9% 1000 Ml) 1,000 mls @ 75 mls/hr IV DIRECT [facility] Last Admin: 10/03/16 11:46 Dose: 75 mls/hr Metronidazole (Flagyl 500 Mg/100 Ml) 100 mls @ 100 mls/hr IV Q8HR [facility] Last Admin: 10/03/16 10:21 Dose: 100 mls/hr Levofloxacin/Dextrose (Levaquin 750mg/150ml) 150 mls @ 100 mls/hr IV Q48HR [facility] PRN Reason: Protocol Last Admin: 10/03/16 11:46 Dose: 100 mls/hr Magnesium Hydroxide (Milk Of Magnesia) 30 ml PO Q4H PRN PRN Reason: Constipation Last Admin: 10/02/16 23:10 Dose: 30 ml Midazolam HCl (Versed) 2 mg IV PREOP NR Stop: 10/03/16 23:59 Ondansetron HCl (Zofran) 4 mg IV Q4H PRN PRN Reason: N/V unrelieved by Reglan Review of Systems All systems: negative (see HPI) Exam - Constitutional Vitals: Temp Pulse Resp BP Pulse Ox 97.4 F L 135 H 26 H 84/55 100 10/03/16 13:15 10/03/16 13:15 10/03/16 13:15 10/03/16 13:15 10/03/16 11:52 General appearance: Present: severe distress (severe abdominal pain) - EENT Eyes: Present: EOM intact ENT: hearing intact - Respiratory Respiratory effort: other (tachypnic) - Cardiovascular Rhythm: other (tachycardic) - Abdominal General gastrointestinal: Present: tender (severe abdominal pain with mild distention with an acute abdomen and rebound) - Psychiatric Psychiatric: appropriate mood/affect, cooperative Results - Labs CBC & Chem 7: 10/03/16 07:33 10/03/16 08:19 Labs: Abnormal lab results 10/03/16 10/03/16 10/03/16 Range/Units 07:33 08:19 08:19 WBC 17.8 H (4.5-11.0) K/mm3 RDW 15.5 H (13.2-15.2) % Seg Neuts % (Manual) 28.0 L (40.0-70.0) % Lymphocytes % (Manual) 6.0 L (13.4-35.0) % Monocytes % (Manual) 12.0 H (0.0-7.3) % Lymphocytes # (Manual) 1.1 L (1.2-5.4) K/mm3 Monocytes # (Manual) 2.1 H (0.0-0.8) K/mm3 Potassium 5.5 H D (3.6-5.0) mmol/L Carbon Dioxide 17 L (22-30) mmol/L BUN 56 H (7-17) mg/dL Creatinine 3.1 H D (0.7-1.2) mg/dL Lactic Acid 5.7 H* (0.7-2.0) mmol/L - Imaging and Cardiology CT scan - abdomen: report reviewed, image reviewed (upon review, there was an occlusion of the superior mesenteric artery with poor) Assessment and Plan 55-year-old female with history of peripheral vascular disease, hypertension, and ureteral stent status post right above-knee amputation who discontinued her chronic anticoagulation on Saturday for ureteral stent exchange. On Saturday she developed abdominal pain and went to the emergency room late that night, and early Saturday morning was seen and had a CT scan performed demonstrating findings of enteritis or possible ileus. Her abdominal pain worsens, and she clinically has declined with increased lactic acid, acute renal failure, tachypnea, tachycardia, and hypotension. When examined, she had an acute abdomen. When the CT scan was reviewed she had an SMA occlusion. The patient has an SMA occlusion with likely infarcted bowel given her clinical examination, labs, and vitals. She will require emergent SMA thrombectomy and bowel resection/exploratory laparotomy. This was discussed at bedside with her . There is significant morbidity and mortality associated with this procedure, but if nothing is performed, then her mortality approaches 100%. The patient and her have agreed to the procedure. Operating room has been notified. Recommended heparin drip as soon as general surgery feels that she can be heparinized. This may be tomorrow morning.
[2016-10-03] MEDS ORDERED: NACL 0.9% 1000 ML 1,000 ML ONE ×4 (15:18→16:47)
[2016-10-03] MEDS ORDERED: CATHFLO IV ONE (15:19)
[2016-10-03] MEDS ORDERED: ADRENALIN ONE (17:01)
[2016-10-03] MEDS ORDERED: SODIUM BICARBONATE IV ONE ×3 (17:08→19:30)
--- NOTE | 2016-10-03 17:13 | Anesthesia Day of Surgery ---
Anesthesia Day of Surgery - Day of Surgery Patient Examined: Yes Patient H&P Reviewed: Yes Patient is NPO: Yes
--- NOTE | 2016-10-03 17:14 | Post Anesthesia Evaluation ---
- Post Anesthesia Evaluation Patient Participated: No Airway Patent: Yes Stable Respiratory Function: Yes Nausea/Vomiting: No Temp > 96.8F: Yes Pain Manageable: Yes Adequeate Hydration: Yes Anesthesia Complications: No Block Receding Appropriately: Not Applicable Patient on Ventilator: Yes Other Comments: PATIENT ON VENTILATOR. ON MULTIPLE VASOPRESSORS. WILL TRANSFER TO ICU. PATIENT IS IN CRITICAL CONDITION.
[2016-10-03] MEDS ORDERED: ARTIFICIAL TEARS OPHTH OINT OU PRN (17:17)
[2016-10-03] MEDS ORDERED: VASELINE LIP THERAPY TP PRN (17:17)
--- NOTE | 2016-10-03 17:56 | Operative Report ---
Operative Report Operative Report: Date of operation: 10/03/2016. 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 Operation: #1. Exploratory laparotomy #2. Extended right hemicolectomy #3. Segmental small bowel resection. Surgeon: Marcio Messer M.D. Asst.: Dr. Jade Rizzo. Findings: 55 years old female admitted yesterday with abdominal pain. The pain did not improve overnight and a lactic acid is from 2-5.5. I saw her in consultation as the vascular service to see her in consultation also the cause of my suspicion of a possible mesenteric occlusion and bowel ischemia. The patient was taken to the operating room and operation she was found to have infarcted small and large bowel and a pulseless superior mesenteric artery. We turned over the operation to Dr. Rizzo, who with the assistance of Dr. Mane, performed a superior mesenteric artery thrombectomy and angioplasty. After they finished date turned the operation to be 200 days infarcted bowel. The heart of the bowel was in patches but most definitely the distal 8 feet of small bowel, the right colon and the transverse to the splenic flexure where infarcted and required resection. Procedure: Under a general anesthesia patient had a Bunch catheter put in place , she was prepped and draped in the usual sterile manner. After proper timeout a midline incision was performed from the xiphoid to above the symphysis pubis. The fascia was opened in the midline, abdominal cavity was entered with findings as stated above. Bloody peritoneal fluid was aspirated. There was obvious infarction of small bowel and large bowel. Then the operation was turned to the vascular surgeons who performed their procedure. After they were done I reassessed the amount of blood removed. We were able to find pulse close to the small bowel wall 5 feet from the ligament of Treitz. We chose this area to start the resection of the small bowel. Then we shifted our attention to the right colon. The right gutter was entered with electrocautery and divided all the way up to the hepatic flexure, this monitored the right colon was reflected to the midline. Then the gastrohepatic ligament was divided using the LigaSure all the way just proximal to the splenic flexure. Then the mesentery of the small bowel to be divided and the mesentery of the right colon and transverse colon were divided using the LigaSure also. The colon was divided just proximal to the splenic flexure with a KATHIA stapler. The small bowel was divided also with the KATHIA about 5 feet from the ligament of Treitz. After this was done the abdominal cavity was irrigated with copious amount of normal saline solution. Then the cavity was closed using a piece of plastic taken off from an sterile C-arm cover. This was trimmed in an elliptical fashion and sutured to the skin with running suture of #2 Ethilon. Then this was cover with an Ioban. She was then transferred to recovery room on a ventilator. Estimated blood loss: 200 mL. Intravenous fluid replacement: Crystalloids. Condition: Very critical. Prognosis: Poor The patient was scheduled for a second look exploratory laparotomy tomorrow with possible resection of more bowel.
[2016-10-03 17:57] LABS: Hematocrit 21.3 % (30.3-42.9); Hemoglobin 6.8 gm/dl (10.1-14.3); Mean Corpuscular HGB Conc 32 % (30-34); Mean Corpuscular Hemoglobin 30 pg (28-32); Mean Corpuscular Volume 94 fl (79-97); Platelet Count 122 K/mm3 (140-440); Red Blood Count 2.27 M/mm3 (3.65-5.03); Red Cell Distribution Width 15.7 % (13.2-15.2); White Blood Count 10.3 K/mm3 (4.5-11.0)
--- NOTE | 2016-10-03 17:59 | Operative Report ---
Operative Report Operative Report: Operative note: Date: 10/03/2016 Preoperative diagnosis: acute mesenteric ischemia Postoperative diagnosis: Same. Operation: Exploratory laparotomy, superior mesenteric artery embolectomy and patch angioplasty with vein patch. Surgeon: Jade Rizzo. Asst.: HAYLEY HECK Anesthesia: Gen. EBL: On record Findings: Extensive small and large bowel gangrene. Superior mesenteric artery thrombosis Indications: 55-year-old lady with acute abdomen and imaging findings of severe mesenteric artery thrombosis and lactic acidosis. Operative details: Patient was brought to the operating room and placed in supine position. She was intubated, a line and central line placed by anesthesia providers. Her abdomen was prepped and draped in sterile fashion. Timeout performed and all team members in agreement. Incision was made was 10 blade and abdominal midline from xiphoid to pubis and carried down with electrocautery. Upon entrance into abdominal cavity there was a large amount of murky fluid was janet bowel gangrene seen. Her transverse colon was retracted superiorly and small bowel retracted inferiorly., Retractors placed. A horizontal incision made just below transverse colon mesentery in the horizontal fashion over palpated sma. Superior mesenteric vein was identified and retracted to the right spare mesenteric artery was identified and dissected. Vessel loops were placed at the proximal distal end branch parts. Patient was heparinized with 5000 units of heparin. Proximal and distal control of the artery was obtained. Arteriotomy was made with 11 blade and extended with Virk scissors. Upon entering arterial lumen was dissected clot identified. #4 Handy was passed over the proximal part. Large amount of clot removed and clipped forward bleeding identified. Then Handy was passed to the distal branches and also large amount of clot withdrawn. There was no back bleeding identified. Distal lumen was flushed with heparinized saline and injected 4 mg of TPA. Flow was checked and good back bleeding identified. Superior mesenteric artery had calcified plaque that was endarterectomized. Small venous branch was dissected and removed for patch. Superior mesenteric artery was repaired with patch angioplasty using 6-0 Prolene running suture. The artery was flushed and was good bleeding identified. Pulse was palpable over the mesenteric artery, Doppler signal was biphasic. Flow at the mesenteric branches was present after thrombectomy. There was strong Doppler signal over distal mesenteric branches. Ischemic bowel was removed by Gen. surgery and will be dictated separately by Dr. Messer.
[2016-10-03] MEDS ORDERED: VERSED/NS 100MG/100ML 100 ML IV SCH (18:00)
[2016-10-03] MEDS ORDERED: NACL 0.9% 500 ML IV SCH (18:00)
--- NOTE | 2016-10-03 18:05 | XRay Report ---
FINAL REPORT EXAM: XR CHEST 1V AP HISTORY: ETT placement TECHNIQUE: AP portable view of the chest PRIORS: CXR 10/02/2016 FINDINGS: Lines, tubes, and devices: Endotracheal tube has been placed terminating above the aortic knob, at least 5 cm above the [place]. A nasogastric tube terminates off the edge of the film below the left diaphragm, likely in the stomach. A right jugular venous catheter terminates in the distal superior vena cava. Lungs and pleura: Trachea is normal in position. There is a new moderate left pleural effusion with blunting of the left costophrenic angle. There is also likely a small right pleural effusion which is new. Lungs are otherwise clear of infiltrate, vascular congestion, or pneumothorax. Cardiomediastinal silhouette: Cardiac and mediastinal silhouettes are unremarkable. Other: Bony structures are intact. IMPRESSION: 1. Satisfactory positions of multiple line placements. No pneumothorax. 2. New effusions, moderate on the left and small on the right.
[2016-10-03 18:09] LABS: INR 3.09 (0.87-1.13)
[2016-10-03 18:14] LABS: Albumin 1.4 g/dL (3.9-5); Albumin/Globulin Ratio 0.9 %; BUN/Creatinine Ratio 19.28; Bilirubin,Total 0.2 mg/dL (0.1-1.2); Total Protein 2.9 g/dL (6.3-8.2)
[2016-10-03 18:15] LABS: Chloride 117.4 mmol/L (98-107)
[2016-10-03] MEDS ORDERED: PITRESSin 20 UNIT in NACL 0.9% 100 ML IV ONE (18:21)
[2016-10-03 18:22] LABS: Partial Thromboplastin Time 121.1 Sec. (24.2-36.6)
[2016-10-03 18:28] LABS: Calcium 5.3 mg/dL (8.4-10.2)
[2016-10-03] MEDS ORDERED: NEO-SYNEPHRINE 100 MG in NACL 0.9% 90 ML IV SCH (18:30)
[2016-10-03] MEDS ORDERED: ADRENALIN 8 MG in NACL 0.9% 250ML 242 ML IV ONE (18:30)
[2016-10-03] MEDS ORDERED: CALCIUM CHLORIDE 1,000 MG in NACL 0.9% 100 ML IV ONE (18:33)
[2016-10-03] MEDS ORDERED: NACL 0.9% 500 ML 500 ML IV SCH (18:35)
[2016-10-03 18:41] LABS: ISTAT Base Excess -17; ISTAT HCO3 13.1; ISTAT PCO2 46.4 (35-45); ISTAT PH 7.058 (7.35-7.45); ISTAT PO2 124 (80-105); ISTAT SO2 97; ISTAT TCO2 14
[2016-10-03 18:48] LABS: Basophils % (Manual) 0 % (0.0-1.8); Blastocytes % (Manual) 0 %
[2016-10-03 18:49] LABS: Anisocytosis 1+; Diff Status Complete; Platelet Estimate Appears Decreased; Poikilocytosis 1+
[2016-10-03] MEDS ORDERED: SODIUM BICARBONATE 150 MEQ in D5W 1,000 ML IV SCH (19:00)
--- NOTE | 2016-10-03 20:15 | Progress Note ---
Assessment and Plan Assessment and plan: Patient is a pleasant 55 year female with hx of peripheral vascular disease, s/ p right AKA and Ureteral stent which was planned for exchange on and patient had been discontinued from her chronic anticoauglation for the planned exachanged. she presented to the ER with complaints of abdominal pain with CT scan showing enteritis and illeus, she was kept NPO with pain control and today became acutely hypotensive, tachycardic and tachypenia with no bowel sound * Acute abdomen- highly suspicious for ischemic bowel * Lactic acidosis * Leukocytosis likely secondary to above * Nausea with vomiting likely secondary to acute abdomen * ELLIOTT * shock syndrome * SMA thrombosis * Oliguric Plan: * A consult that general surgery for consult consult with vascular reviewing imaging was noted to have an SMA occlusion for which averages surgery on this required. * Will be transfered to ICU * Neprhology consult * D/W surgery, Vascular, forms designer * Also gave the patient 3 L of fluids normal saline. * Placed an NG tube with initial 600 mL removed * Place Bunch catheter for better fluid assessment. * DVT and GI prophylaxis * Prognosis guarded * Discussed with who was a bedside. The high probability of a clinically significant, sudden or life threatening deterioration of the [GI, renal] system(s) required my full and direct attention , intervention and personal management. The aggregate critical care time was [90 ] minutes. This time is in addition to time spent performing reported procedures but includes the following: [x] Data Review and interpretation [x] Patient assessment and monitoring of vital signs [x] Documentation [x] Medication orders and management History Interval history: Patient seen this morning, will continued pain in the abdomen on nausea with vomiting and hypotensive code met called. She denied any chest pain. Abdominal pain at 10 over 10 in intensity, no fever Hospitalist Physical - Physical exam Narrative exam: VITAL SIGNS: Reviewed. GENERAL: The patient appeared in significant distress secondary to abdominal pain. Vital signs as documented. HEAD: No signs of head trauma. EYES: Pupils are equal. Extraocular motions intact. EARS: Hearing grossly intact. MOUTH: Oropharynx is normal. NECK: No adenopathy, no JVD. CHEST: Chest with clear breath sounds bilaterally. No wheezes, rales, or rhonchi. CARDIAC: Tachycardia. S1 and S2, without murmurs, gallops, or rubs. VASCULAR: No Edema. ABDOMEN: Distended, Tender, guarding, Could not appreciate any bowel sound . MUSCULOSKELETAL: Good range of motion of all major joints. Extremities without clubbing, cyanosis or edema. NEUROLOGIC EXAM: Alert and oriented x 3. No focal sensory or strength deficits. Speech normal. Follows commands. PSYCHIATRIC: Mood anxious. SKIN: No rash or lesions. - Constitutional Vitals: Temp Pulse Resp BP Pulse Ox 97 F L 114 H 12 103/54 100 10/03/16 15:24 10/03/16 19:26 10/03/16 19:26 10/03/16 19:26 10/03/16 19:26 General appearance: Present: severe distress (severe abdominal pain) Results - Labs CBC & Chem 7: 10/03/16 17:45 10/03/16 17:45 Labs: Laboratory Last Values WBC 10.3 K/mm3 (4.5-11.0) 10/03/16 17:45 RBC 2.27 M/mm3 (3.65-5.03) L 10/03/16 17:45 Hgb 6.8 gm/dl (10.1-14.3) L D 10/03/16 17:45 Hct 21.3 % (30.3-42.9) L D 10/03/16 17:45 MCV 94 fl (79-97) 10/03/16 17:45 MCH 30 pg (28-32) 10/03/16 17:45 MCHC 32 % (30-34) 10/03/16 17:45 RDW 15.7 % (13.2-15.2) H 10/03/16 17:45 Plt Count 122 K/mm3 (140-440) L 10/03/16 17:45 Add Manual Diff Complete 10/03/16 17:45 Total Counted 100 10/03/16 17:45 Seg Neuts % (Manual) 41.0 % (40.0-70.0) 10/03/16 17:45 Band Neutrophils % 42.0 % 10/03/16 17:45 Lymphocytes % (Manual) 9.0 % (13.4-35.0) L 10/03/16 17:45 Reactive Lymphs % (Man) 0 % 10/03/16 17:45 Monocytes % (Manual) 4.0 % (0.0-7.3) 10/03/16 17:45 Eosinophils % (Manual) 1.0 % (0.0-4.3) 10/03/16 17:45 Basophils % (Manual) 0 % (0.0-1.8) 10/03/16 17:45 Metamyelocytes % 2.0 % 10/03/16 17:45 Myelocytes % 1.0 % 10/03/16 17:45 Promyelocytes % 0 % 10/03/16 17:45 Blast Cells % 0 % 10/03/16 17:45 Nucleated RBC % Not Reportable 10/03/16 17:45 Seg Neutrophils # Man 4.2 K/mm3 (1.8-7.7) 10/03/16 17:45 Band Neutrophils # 4.3 K/mm3 10/03/16 17:45 Lymphocytes # (Manual) 0.9 K/mm3 (1.2-5.4) L 10/03/16 17:45 Abs React Lymphs (Man) 0.0 K/mm3 10/03/16 17:45 Monocytes # (Manual) 0.4 K/mm3 (0.0-0.8) 10/03/16 17:45 Eosinophils # (Manual) 0.1 K/mm3 (0.0-0.4) 10/03/16 17:45 Basophils # (Manual) 0.0 K/mm3 (0.0-0.1) 10/03/16 17:45 Metamyelocytes # 0.2 K/mm3 10/03/16 17:45 Myelocytes # 0.1 K/mm3 10/03/16 17:45 Promyelocytes # 0.0 K/mm3 10/03/16 17:45 Blast Cells # 0.0 K/mm3 10/03/16 17:45 WBC Morphology Not Reportable 10/03/16 17:45 Hypersegmented Neuts Not Reportable 10/03/16 17:45 Hyposegmented Neuts Not Reportable 10/03/16 17:45 Hypogranular Neuts Not Reportable 10/03/16 17:45 Smudge Cells Not Reportable 10/03/16 17:45 Toxic Granulation Not Reportable 10/03/16 17:45 Toxic Vacuolation Not Reportable 10/03/16 17:45 Dohle Bodies Not Reportable 10/03/16 17:45 Pelger-Huet Anomaly Not Reportable 10/03/16 17:45 Len Rods Not Reportable 10/03/16 17:45 Platelet Estimate Appears decreased 10/03/16 17:45 Clumped Platelets Not Reportable 10/03/16 17:45 Plt Clumps, EDTA Not Reportable 10/03/16 17:45 Large Platelets Not Reportable 10/03/16 17:45 Giant Platelets Not Reportable 10/03/16 17:45 Platelet Satelliting Not Reportable 10/03/16 17:45 Plt Morphology Comment Not Reportable 10/03/16 17:45 RBC Morphology Not Reportable 10/03/16 17:45 Dimorphic RBCs Not Reportable 10/03/16 17:45 Polychromasia Not Reportable 10/03/16 17:45 Hypochromasia Not Reportable 10/03/16 17:45 Poikilocytosis 1+ 10/03/16 17:45 Anisocytosis 1+ 10/03/16 17:45 Microcytosis Not Reportable 10/03/16 17:45 Macrocytosis Not Reportable 10/03/16 17:45 Spherocytes Not Reportable 10/03/16 17:45 Pappenheimer Bodies Not Reportable 10/03/16 17:45 Sickle Cells Not Reportable 10/03/16 17:45 Target Cells Not Reportable 10/03/16 17:45 Tear Drop Cells Not Reportable 10/03/16 17:45 Ovalocytes Not Reportable 10/03/16 17:45 Helmet Cells Not Reportable 10/03/16 17:45 [place] Bodies Not Reportable 10/03/16 17:45 [place] Rings Not Reportable 10/03/16 17:45 Jv Cells Not Reportable 10/03/16 17:45 Bite Cells Not Reportable 10/03/16 17:45 Crenated Cell Not Reportable 10/03/16 17:45 Elliptocytes Not Reportable 10/03/16 17:45 Acanthocytes (Spur) Not Reportable 10/03/16 17:45 Rouleaux Not Reportable 10/03/16 17:45 Hemoglobin C Crystals Not Reportable 10/03/16 17:45 Schistocytes Not Reportable 10/03/16 17:45 Malaria parasites Not Reportable 10/03/16 17:45 Jackson Bodies Not Reportable 10/03/16 17:45 Hem Pathologist Commnt No 10/03/16 17:45 PT 32.1 Sec. (12.2-14.9) H 10/03/16 17:45 INR 3.09 (0.87-1.13) H 10/03/16 17:45 APTT 121.1 Sec. (24.2-36.6) H* 10/03/16 17:45 POC ABG pH 7.058 (7.35-7.45) L 10/03/16 18:34 POC ABG pCO2 46.4 (35-45) H 10/03/16 18:34 POC ABG pO2 124 (80-105) H 10/03/16 18:34 POC ABG HCO3 13.1 10/03/16 18:34 POC ABG Total CO2 14 10/03/16 18:34 POC ABG O2 Sat 97 10/03/16 18:34 POC ABG Base Excess -17 10/03/16 18:34 FiO2 60 % 10/03/16 18:34 Sodium 147 mmol/L (137-145) H 10/03/16 17:45 Potassium 5.0 mmol/L (3.6-5.0) 10/03/16 17:45 Chloride 117.4 mmol/L (98-107) H 10/03/16 17:45 Carbon Dioxide 16 mmol/L (22-30) L 10/03/16 17:45 Anion Gap 19 mmol/L 10/03/16 17:45 BUN 54 mg/dL (7-17) H 10/03/16 17:45 Creatinine 2.8 mg/dL (0.7-1.2) H 10/03/16 17:45 Estimated GFR 21 ml/min 10/03/16 17:45 BUN/Creatinine Ratio 19.28 % 10/03/16 17:45 Glucose 96 mg/dL (65-100) 10/03/16 17:45 Hemoglobin A1c 5.8 % (4-6) 10/02/16 01:58 Lactic Acid 5.7 mmol/L (0.7-2.0) H* 10/03/16 08:19 Calcium 5.3 mg/dL (8.4-10.2) L* D 10/03/16 17:45 Total Bilirubin 0.2 mg/dL (0.1-1.2) 10/03/16 17:45 AST 78 units/L (5-40) H 10/03/16 17:45 ALT 35 units/L (7-56) 10/03/16 17:45 Alkaline Phosphatase 55 units/L (35-129) 10/03/16 17:45 Troponin T < 0.010 ng/mL (0.00-0.029) 10/02/16 06:26 Total Protein 2.9 g/dL (6.3-8.2) L D 10/03/16 17:45 Albumin 1.4 g/dL (3.9-5) L 10/03/16 17:45 Albumin/Globulin Ratio 0.9 % 10/03/16 17:45 Lipase 32 units/L (13-60) 10/02/16 01:03 Urine Color Yellow (Yellow) 10/02/16 01:50 Urine Turbidity Clear (Clear) 10/02/16 01:50 Urine pH 6.0 (5.0-7.0) 10/02/16 01:50 Ur Specific [place] 1.011 (1.003-1.030) 10/02/16 01:50 Urine Protein 30 mg/dl mg/dL (Negative) 10/02/16 01:50 Urine Glucose (UA) >=500 mg/dL (Negative) 10/02/16 01:50 Urine Ketones Tr mg/dL (Negative) 10/02/16 01:50 Urine Blood Mod (Negative) 10/02/16 01:50 Urine Nitrite Neg (Negative) 10/02/16 01:50 Urine Bilirubin Neg (Negative) 10/02/16 01:50 Urine Urobilinogen < 2.0 mg/dL (<2.0) 10/02/16 01:50 Ur Leukocyte Esterase Lg (Negative) 10/02/16 01:50 Urine WBC (Auto) 19.0 /HPF (0.0-6.0) H 10/02/16 01:50 Urine RBC (Auto) 15.0 /HPF (0.0-6.0) 10/02/16 01:50 U Epithel Cells (Auto) 10.0 /HPF (0-13.0) 10/02/16 01:50 Urine Bacteria (Auto) 1+ /HPF (Negative) 10/02/16 01:50 Urine Mucus Few /HPF 10/02/16 01:50 Blood Type A POSITIVE 10/03/16 14:25 Antibody Screen Negative 10/03/16 14:25 Crossmatch See Detail 10/03/16 14:25 - Imaging and Cardiology Chest x-ray: image reviewed Abdominal x-ray: image reviewed
[2016-10-03] MEDS ORDERED: MORPHINE IV ONE (20:57)
[2016-10-03] MEDS ORDERED: NACL 0.9% 1000 ML 2,000 ML IV ONE (22:25)
[2016-10-04] MEDS: SUBLIMAZE IV PRN ×3 (00:19→19:05)
[2016-10-04 01:04] LABS: ISTAT Base Excess -9; ISTAT HCO3 15.9; ISTAT PCO2 27.3 (35-45); ISTAT PH 7.372 (7.35-7.45); ISTAT PO2 211 (80-105); ISTAT SO2 100; ISTAT TCO2 17
[2016-10-04] MEDS: LEVOPHED DRIP 4 MG/NS 250 ML 250 ML IV SCH (02:01)
[2016-10-04 04:57] LABS: Hematocrit 24.4 % (30.3-42.9); Mean Corpuscular HGB Conc 33 % (30-34); Mean Corpuscular Hemoglobin 29 pg (28-32); Mean Corpuscular Volume 87 fl (79-97); Red Cell Distribution Width 16.3 % (13.2-15.2); White Blood Count 8.8 K/mm3 (4.5-11.0)
[2016-10-04 05:07] LABS: Platelet Count 77 K/mm3 (140-440)
[2016-10-04 05:15] LABS: BUN/Creatinine Ratio 20.45; Chloride 115.2 mmol/L (98-107); Potassium 4.5 mmol/L (3.6-5.0)
[2016-10-04 05:34] LABS: Calcium 5.7 mg/dL (8.4-10.2)
[2016-10-04 05:59] LABS: ISTAT Base Excess -10; ISTAT HCO3 13.3; ISTAT PCO2 17.6 (35-45); ISTAT PH 7.489 (7.35-7.45); ISTAT PO2 118 (80-105); ISTAT SO2 99; ISTAT TCO2 14
[2016-10-04] MEDS ORDERED: NACL 0.9% 1000 ML 1,000 ML IV ONE (06:39)
[2016-10-04] MEDS ORDERED: NACL 0.9% 500 ML 500 ML IV ONE ×2 (06:39→11:53)
--- NOTE | 2016-10-04 08:18 | Consultation ---
History of Present Illness - Reason for Consult Consult date: 10/04/16 acute renal failure, hyperkalemia, metabolic acidosis - History of Present Illness Patient is a 55 yo AAF with pmh significant for extensive peripheral vascular disease, HTN and cigarette smoking came to the ED with acute abdominal pain. Unable to obtain history from patient as she is intubated currently. The pain started in the mid abdomen and later involved the lower abdomen, with intensity 7/10 and some relief with IV pain medication given. She had N, V and decreased PO intake. No h/o chest pain, palpitation, shortness of breath, cough, hematochezia, dysuria, dysarthria, fever, chills, rash or bleeding or hematuria. CTA revealed a large clot in the SMA which led to ischemic bowel. Patient was taken to OR yesterday and underwent resection of small bowel and colon. Patient was hypotensive both intra and postoperatively. She received several liters of saline and 4 units of blood. Her creatinine went upto 3.1 and potassium of 5.5, both are improving at present. Baseline creatinine around 1. Patient is on Levophed. Lactic acidosis is improving. Past History Past Medical History: hypertension, other (peripheral vascular disease) Past Surgical History: Other (AKA right lower extremity. Femoral popliteal bypass. Left ureteral stent.) Social history: smoking Medications and Allergies Allergies Allergy/AdvReac Type Severity Reaction Status Date / Time No Known Allergies Allergy Verified 08/24/15 10:54 Home Medications Medication Instructions Recorded Confirmed Last Taken Type Amlodipine Besylate 2.5 mg PO DAILY 09/01/15 10/01/16 06/07/16 10:00 History 2.5MG Carvedilol 6.25 mg PO BID 09/01/15 10/01/16 06/07/16 10:00 History 6.25MG hydrALAZINE [Apresoline TAB] 25 mg PO TID 09/01/15 10/01/16 06/07/16 10:00 History 25MG Apixaban [Eliquis] 5 mg PO BID #60 tablet 05/10/16 10/01/16 09/29/16 Rx Cholecalciferol (Vitamin D3) 50,000 unit PO QWEEK 10/01/16 10/01/16 Unknown History [Vitamin D3] HYDROcodone/APAP 10-325 [[place] 1 tab PO Q6H PRN 10/01/16 10/01/16 Unknown History 10-325 mg TAB] Active Meds: Active Medications Famotidine (Pepcid) 20 mg IV DAILY KANA Fentanyl (Sublimaze) 50 mcg IV Q2H PRN PRN Reason: Pain Last Admin: 10/04/16 00:19 Dose: 50 mcg Hydrophilic Ointment (Vaseline Lip Therapy) 1 applic TP Q2HR PRN PRN Reason: Dry Lips Sodium Chloride (Nacl 0.9% 1000 Ml) 1,000 mls @ 75 mls/hr IV DIRECT KANA Last Admin: 10/03/16 11:46 Dose: 75 mls/hr Metronidazole (Flagyl 500 Mg/100 Ml) 100 mls @ 100 mls/hr IV Q8HR KANA Last Admin: 10/03/16 21:40 Dose: 100 mls/hr Levofloxacin/Dextrose (Levaquin 750mg/150ml) 150 mls @ 100 mls/hr IV Q48HR KANA PRN Reason: Protocol Last Admin: 10/03/16 11:46 Dose: 100 mls/hr Phenylephrine HCl 100 mg/ (Sodium Chloride) 100 mls @ 3 mls/hr IV TITR KANA; 50 MCG/MIN PRN Reason: Protocol Epinephrine 8 mg/ Sodium (Chloride) 250 mls @ 3.75 mls/hr IV TITR ONE; 2 MCG/ MIN PRN Reason: Protocol Stop: 10/06/16 13:09 Norepinephrine (Levophed Drip 4 Mg/Ns 250 Ml) 250 mls @ 7.5 mls/hr IV TITR KANA ; 2 MCG/MIN PRN Reason: Protocol Last Titration: 10/04/16 07:34 Dose: 5 mcg/min Sodium Bicarbonate 150 meq/ (Dextrose) 1,150 mls @ 75 mls/hr IV DIRECT KANA Sodium Chloride (Nacl 0.9% 500 Ml) 1 ml IV DIRECT KANA Review of Systems ROS unobtainable: due to endotracheal tube Exam - Vital Signs Vital signs: Vital Signs Temp Pulse Resp BP 97.7 F 84 18 140/90 09/28/16 12:00 09/28/16 12:00 09/28/16 12:00 09/28/16 12:00 - General Appearance General appearance: well-developed, well-nourished, intubated (FiO2 30%), other (alert) EENT: PERRL, mucous membranes moist, hearing intact Neck: Present: neck supple Respiratory: Other (coarse breath sounds) Heart: regular, S1S2, no murmurs Gastrointestinal: Present: other (open abd. surgical wound noted) Integumentary: no rash, warm and dry Neurologic: other (follows some command, exam is limited) Musculoskeletal: Present: other (right AKA, no edema) Psychiatric: cooperative Results - Lab Results 10/04/16 04:19 10/04/16 04:19 Most recent lab results Calcium 5.7 mg/dL (8.4-10.2) L* 10/04/16 04:19 Assessment and Plan - Patient Problems (1) ELLIOTT (acute kidney injury) Current Visit: Yes Status: Acute Plan to address problem: Acute Kidney Injury in the setting of hypotension, shock and Iv contrast. Renal function is improving. Continue IV fluids. Urine studies ordered. (2) Lactic acidosis Current Visit: Yes Status: Acute Plan to address problem: Improving. (3) Shock Current Visit: Yes Status: Acute Plan to address problem: On Levophed. Continue IV fluids. 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 (5) Anemia Current Visit: Yes Status: Acute Plan to address problem: S/p PRBC.
--- NOTE | 2016-10-04 09:06 | Progress Note ---
Assessment and Plan Assessment and plan: Patient is a pleasant 55 year female with hx of peripheral vascular disease, s/ p right AKA and Ureteral stent which was planned for exchange on and patient had been discontinued from her chronic anticoauglation for the planned exachanged. 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 * D/W surgery, Vascular, motor vehicle parts interpreter * DVT and GI prophylaxis * Prognosis guarded * Discussed with and aunty and son at bedside. The high probability of a clinically significant, sudden or life threatening deterioration of the [GI, renal] system(s) required my full and direct attention , intervention and personal management. The aggregate critical care time was [35 ] minutes. This time is in addition to time spent performing reported procedures but includes the following: [x] Data Review and interpretation [x] Patient assessment and monitoring of vital signs [x] Documentation [x] Medication orders and management History Interval history: Patient seen this morning, remains critically ill in the ICU post colectomy due to small and large bowel ischemia and SMA thrombosisn thrombectomy. on mechanical ventilation with multiple pressor support. Hospitalist Physical - Physical exam Narrative exam: VITAL SIGNS: Reviewed. GENERAL: Ventilated, orally indubated HEAD: No signs of head trauma. EYES: Pupils are equal. Extraocular motions intact. EARS: Hearing grossly intact. MOUTH: Oropharynx is normal. NECK: No adenopathy, no JVD. CHEST: Chest diminshed CARDIAC: Tachycardia. S1 and S2, without murmurs, gallops, or rubs. VASCULAR: No Edema. ABDOMEN: Distended, dressing in place, open wound. for repeat OR evaluation MUSCULOSKELETAL: right bka, warm and dry to touch NEUROLOGIC EXAM: orally intubated, awake this am, acknowledges physician PSYCHIATRIC: Mood anxious. SKIN: No rash or lesions. - Constitutional Vitals: Temp Pulse Resp BP Pulse Ox 97.0 F L 138 H 14 102/56 99 10/04/16 09:04 10/04/16 09:04 10/04/16 09:04 10/04/16 09:04 10/04/16 09:04 General appearance: Present: severe distress (severe abdominal pain) Results - Labs CBC & Chem 7: 10/04/16 15:20 10/04/16 04:19 Labs: Laboratory Last Values WBC 8.8 K/mm3 (4.5-11.0) 10/04/16 04:19 RBC 2.80 M/mm3 (3.65-5.03) L 10/04/16 04:19 Hgb 8.0 gm/dl (10.1-14.3) L 10/04/16 04:19 Hct 24.4 % (30.3-42.9) L 10/04/16 04:19 MCV 87 fl (79-97) D 10/04/16 04:19 MCH 29 pg (28-32) 10/04/16 04:19 MCHC 33 % (30-34) 10/04/16 04:19 RDW 16.3 % (13.2-15.2) H 10/04/16 04:19 Plt Count 77 K/mm3 (140-440) L 10/04/16 04:19 Add Manual Diff Complete 10/03/16 17:45 Total Counted 100 10/03/16 17:45 Seg Neuts % (Manual) 41.0 % (40.0-70.0) 10/03/16 17:45 Band Neutrophils % 42.0 % 10/03/16 17:45 Lymphocytes % (Manual) 9.0 % (13.4-35.0) L 10/03/16 17:45 Reactive Lymphs % (Man) 0 % 10/03/16 17:45 Monocytes % (Manual) 4.0 % (0.0-7.3) 10/03/16 17:45 Eosinophils % (Manual) 1.0 % (0.0-4.3) 10/03/16 17:45 Basophils % (Manual) 0 % (0.0-1.8) 10/03/16 17:45 Metamyelocytes % 2.0 % 10/03/16 17:45 Myelocytes % 1.0 % 10/03/16 17:45 Promyelocytes % 0 % 10/03/16 17:45 Blast Cells % 0 % 10/03/16 17:45 Nucleated RBC % Not Reportable 10/03/16 17:45 Seg Neutrophils # Man 4.2 K/mm3 (1.8-7.7) 10/03/16 17:45 Band Neutrophils # 4.3 K/mm3 10/03/16 17:45 Lymphocytes # (Manual) 0.9 K/mm3 (1.2-5.4) L 10/03/16 17:45 Abs React Lymphs (Man) 0.0 K/mm3 10/03/16 17:45 Monocytes # (Manual) 0.4 K/mm3 (0.0-0.8) 10/03/16 17:45 Eosinophils # (Manual) 0.1 K/mm3 (0.0-0.4) 10/03/16 17:45 Basophils # (Manual) 0.0 K/mm3 (0.0-0.1) 10/03/16 17:45 Metamyelocytes # 0.2 K/mm3 10/03/16 17:45 Myelocytes # 0.1 K/mm3 10/03/16 17:45 Promyelocytes # 0.0 K/mm3 10/03/16 17:45 Blast Cells # 0.0 K/mm3 10/03/16 17:45 WBC Morphology Not Reportable 10/03/16 17:45 Hypersegmented Neuts Not Reportable 10/03/16 17:45 Hyposegmented Neuts Not Reportable 10/03/16 17:45 Hypogranular Neuts Not Reportable 10/03/16 17:45 Smudge Cells Not Reportable 10/03/16 17:45 Toxic Granulation Not Reportable 10/03/16 17:45 Toxic Vacuolation Not Reportable 10/03/16 17:45 Dohle Bodies Not Reportable 10/03/16 17:45 Pelger-Huet Anomaly Not Reportable 10/03/16 17:45 Len Rods Not Reportable 10/03/16 17:45 Platelet Estimate Appears decreased 10/03/16 17:45 Clumped Platelets Not Reportable 10/03/16 17:45 Plt Clumps, EDTA Not Reportable 10/03/16 17:45 Large Platelets Not Reportable 10/03/16 17:45 Giant Platelets Not Reportable 10/03/16 17:45 Platelet Satelliting Not Reportable 10/03/16 17:45 Plt Morphology Comment Not Reportable 10/03/16 17:45 RBC Morphology Not Reportable 10/03/16 17:45 Dimorphic RBCs Not Reportable 10/03/16 17:45 Polychromasia Not Reportable 10/03/16 17:45 Hypochromasia Not Reportable 10/03/16 17:45 Poikilocytosis 1+ 10/03/16 17:45 Anisocytosis 1+ 10/03/16 17:45 Microcytosis Not Reportable 10/03/16 17:45 Macrocytosis Not Reportable 10/03/16 17:45 Spherocytes Not Reportable 10/03/16 17:45 Pappenheimer Bodies Not Reportable 10/03/16 17:45 Sickle Cells Not Reportable 10/03/16 17:45 Target Cells Not Reportable 10/03/16 17:45 Tear Drop Cells Not Reportable 10/03/16 17:45 Ovalocytes Not Reportable 10/03/16 17:45 Helmet Cells Not Reportable 10/03/16 17:45 Hitchcock-[place] Bodies Not Reportable 10/03/16 17:45 [place] Rings Not Reportable 10/03/16 17:45 Jv Cells Not Reportable 10/03/16 17:45 Bite Cells Not Reportable 10/03/16 17:45 Crenated Cell Not Reportable 10/03/16 17:45 Elliptocytes Not Reportable 10/03/16 17:45 Acanthocytes (Spur) Not Reportable 10/03/16 17:45 Rouleaux Not Reportable 10/03/16 17:45 Hemoglobin C Crystals Not Reportable 10/03/16 17:45 Schistocytes Not Reportable 10/03/16 17:45 Malaria parasites Not Reportable 10/03/16 17:45 Jackson Bodies Not Reportable 10/03/16 17:45 Hem Pathologist Commnt No 10/03/16 17:45 PT 32.1 Sec. (12.2-14.9) H 10/03/16 17:45 INR 3.09 (0.87-1.13) H 10/03/16 17:45 APTT 121.1 Sec. (24.2-36.6) H* 10/03/16 17:45 POC ABG pH 7.489 (7.35-7.45) H 10/04/16 04:54 POC ABG pCO2 17.6 (35-45) L 10/04/16 04:54 POC ABG pO2 118 (80-105) H 10/04/16 04:54 POC ABG HCO3 13.3 10/04/16 04:54 POC ABG Total CO2 14 10/04/16 04:54 POC ABG O2 Sat 99 10/04/16 04:54 POC ABG Base Excess -10 10/04/16 04:54 FiO2 30 % 10/04/16 04:54 Sodium 147 mmol/L (137-145) H 10/04/16 04:19 Potassium 4.5 mmol/L (3.6-5.0) 10/04/16 04:19 Chloride 115.2 mmol/L (98-107) H 10/04/16 04:19 Carbon Dioxide 20 mmol/L (22-30) L 10/04/16 04:19 Anion Gap 16 mmol/L 10/04/16 04:19 BUN 45 mg/dL (7-17) H 10/04/16 04:19 Creatinine 2.2 mg/dL (0.7-1.2) H 10/04/16 04:19 Estimated GFR 28 ml/min 10/04/16 04:19 BUN/Creatinine Ratio 20.45 % 10/04/16 04:19 Glucose 150 mg/dL (65-100) H 10/04/16 04:19 Hemoglobin A1c 5.8 % (4-6) 10/02/16 01:58 Lactic Acid 3.5 mmol/L (0.7-2.0) H* 10/04/16 04:19 Calcium 5.7 mg/dL (8.4-10.2) L* 10/04/16 04:19 Total Bilirubin 0.2 mg/dL (0.1-1.2) 10/03/16 17:45 AST 78 units/L (5-40) H 10/03/16 17:45 ALT 35 units/L (7-56) 10/03/16 17:45 Alkaline Phosphatase 55 units/L (35-129) 10/03/16 17:45 Troponin T < 0.010 ng/mL (0.00-0.029) 10/02/16 06:26 Total Protein 2.9 g/dL (6.3-8.2) L D 10/03/16 17:45 Albumin 1.4 g/dL (3.9-5) L 10/03/16 17:45 Albumin/Globulin Ratio 0.9 % 10/03/16 17:45 Lipase 32 units/L (13-60) 10/02/16 01:03 Urine Color Yellow (Yellow) 10/02/16 01:50 Urine Turbidity Clear (Clear) 10/02/16 01:50 Urine pH 6.0 (5.0-7.0) 10/02/16 01:50 Ur Specific [place] 1.011 (1.003-1.030) 10/02/16 01:50 Urine Protein 30 mg/dl mg/dL (Negative) 10/02/16 01:50 Urine Glucose (UA) >=500 mg/dL (Negative) 10/02/16 01:50 Urine Ketones Tr mg/dL (Negative) 10/02/16 01:50 Urine Blood Mod (Negative) 10/02/16 01:50 Urine Nitrite Neg (Negative) 10/02/16 01:50 Urine Bilirubin Neg (Negative) 10/02/16 01:50 Urine Urobilinogen < 2.0 mg/dL (<2.0) 10/02/16 01:50 Ur Leukocyte Esterase Lg (Negative) 10/02/16 01:50 Urine WBC (Auto) 19.0 /HPF (0.0-6.0) H 10/02/16 01:50 Urine RBC (Auto) 15.0 /HPF (0.0-6.0) 10/02/16 01:50 U Epithel Cells (Auto) 10.0 /HPF (0-13.0) 10/02/16 01:50 Urine Bacteria (Auto) 1+ /HPF (Negative) 10/02/16 01:50 Urine Mucus Few /HPF 10/02/16 01:50 Blood Type A POSITIVE 10/03/16 14:25 Antibody Screen Negative 10/03/16 14:25 Crossmatch See Detail 10/03/16 14:25
[2016-10-04] MEDS ORDERED: NACL 0.9% 1000 ML 1,000 ML ONE ×2 (09:11→14:01)
[2016-10-04] MEDS: PEPCID IV SCH (09:29)
[2016-10-04] MEDS ORDERED: AMIDATE IV ONE (09:37)
[2016-10-04] MEDS ORDERED: XYLOCAINE MPF 2% ONE (09:38)
[2016-10-04] MEDS ORDERED: ZEMURON IV ONE ×2 (09:38→15:08)
[2016-10-04] MEDS ORDERED: SUBLIMAZE ONE (09:45)
[2016-10-04 10:59] LABS: ISTAT Base Excess -4; ISTAT HCO3 19.6; ISTAT PCO2 27.9 (35-45); ISTAT PH 7.454 (7.35-7.45); ISTAT PO2 98 (80-105); ISTAT SO2 98; ISTAT TCO2 20
--- NOTE | 2016-10-04 11:18 | Consultation ---
History of Present Illness Consult date: 10/04/16 Requesting physician: JANICE DELACRUZ Reason for consult: other (Critical Care ICU management) History of present illness: 55 y/o female admitted with acute abdominal pain. 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 Taken to OR on yesterday for bowel resection. [place] sepsis with shock intra and postoperatively. Left intubated and transitioned to the ICU. Patient resuscitated with several liters of saline and 4 units of blood. Anticoagulation had not been restarted yet as the patient has to return to the OR today. She is awake and alert. Follows commands. Good urine output. Her metabolic acidosis is improving. She has been weaned down to one vasopressor currently. Family at bedside. Past History Past Medical History: hypertension, other (peripheral vascular disease) Past Surgical History: Other (AKA right lower extremity. Femoral popliteal bypass. Left ureteral stent.) Social history: smoking Medications and Allergies Allergies Allergy/AdvReac Type Severity Reaction Status Date / Time No Known Allergies Allergy Verified 08/24/15 10:54 Home Medications Medication Instructions Recorded Confirmed Last Taken Type Amlodipine Besylate 2.5 mg PO DAILY 09/01/15 10/01/16 06/07/16 10:00 History 2.5MG Carvedilol 6.25 mg PO BID 09/01/15 10/01/16 06/07/16 10:00 History 6.25MG hydrALAZINE [Apresoline TAB] 25 mg PO TID 09/01/15 10/01/16 06/07/16 10:00 History 25MG Apixaban [Eliquis] 5 mg PO BID #60 tablet 05/10/16 10/01/16 09/29/16 Rx Cholecalciferol (Vitamin D3) 50,000 unit PO QWEEK 10/01/16 10/01/16 Unknown History [Vitamin D3] HYDROcodone/APAP 10-325 [[place] 1 tab PO Q6H PRN 10/01/16 10/01/16 Unknown History 10-325 mg TAB] Active Meds: Active Medications Famotidine (Pepcid) 20 mg IV DAILY KANA Last Admin: 10/04/16 09:29 Dose: 20 mg Fentanyl (Sublimaze) 50 mcg IV Q2H PRN PRN Reason: Pain Last Admin: 10/04/16 00:19 Dose: 50 mcg Hydrophilic Ointment (Vaseline Lip Therapy) 1 applic TP Q2HR PRN PRN Reason: Dry Lips Sodium Chloride (Nacl 0.9% 1000 Ml) 1,000 mls @ 75 mls/hr IV DIRECT KANA Last Admin: 10/03/16 11:46 Dose: 75 mls/hr Metronidazole (Flagyl 500 Mg/100 Ml) 100 mls @ 100 mls/hr IV Q8HR KANA Last Admin: 10/03/16 21:40 Dose: 100 mls/hr Levofloxacin/Dextrose (Levaquin 750mg/150ml) 150 mls @ 100 mls/hr IV Q48HR KANA PRN Reason: Protocol Last Admin: 10/03/16 11:46 Dose: 100 mls/hr Phenylephrine HCl 100 mg/ (Sodium Chloride) 100 mls @ 3 mls/hr IV TITR KANA; 50 MCG/MIN PRN Reason: Protocol Epinephrine 8 mg/ Sodium (Chloride) 250 mls @ 3.75 mls/hr IV TITR ONE; 2 MCG/ MIN PRN Reason: Protocol Stop: 10/06/16 13:09 Norepinephrine (Levophed Drip 4 Mg/Ns 250 Ml) 250 mls @ 7.5 mls/hr IV TITR KANA ; 2 MCG/MIN PRN Reason: Protocol Last Titration: 10/04/16 10:35 Dose: 0 mcg/min Sodium Bicarbonate 150 meq/ (Dextrose) 1,150 mls @ 75 mls/hr IV DIRECT KANA Sodium Chloride (Nacl 0.9% 500 Ml) 1 ml IV DIRECT KANA Review of Systems ROS unobtainable: due to endotracheal tube Physical Examination Vital signs: Vital Signs Temp Pulse Resp BP 97.7 F 84 18 140/90 09/28/16 12:00 09/28/16 12:00 09/28/16 12:00 09/28/16 12:00 General appearance: no acute distress, alert Eyes: non-icteric ENT: oropharynx moist, other (orally intubated, not on continuous sedation) Neck: supple, no lymphadenopathy Ascultation: Bilateral: clear Percussion: Bilateral: not dull Cardiovascular: other (sinus tachycardia) Gastrointestinal: other (post surgical changes) Integumentary: normal Extremities: no cyanosis, no edema Musculoskeletal: no deformities normal mental status, non-focal exam mood appropriate Results - Laboratory Findings CBC and BMP: 10/04/16 04:19 10/04/16 04:19 ABG POC ABG pH 7.454 (7.35-7.45) H 10/04/16 10:55 POC ABG pCO2 27.9 (35-45) L 10/04/16 10:55 POC ABG pO2 98 (80-105) 10/04/16 10:55 POC ABG HCO3 19.6 10/04/16 10:55 POC ABG Total CO2 20 10/04/16 10:55 POC ABG O2 Sat 98 10/04/16 10:55 PT/INR, D-dimer PT 32.1 Sec. (12.2-14.9) H 10/03/16 17:45 INR 3.09 (0.87-1.13) H 10/03/16 17:45 Abnormal lab findings: Abnormal Labs 10/02/16 10/03/16 10/03/16 06:26 07:33 08:19 WBC 17.8 H RBC Hgb Hct RDW 15.5 H Plt Count Seg Neuts % (Manual) 28.0 L Lymphocytes % (Manual) 6.0 L Monocytes % (Manual) 12.0 H Lymphocytes # (Manual) 1.1 L Monocytes # (Manual) 2.1 H PT INR APTT POC ABG pH POC ABG pCO2 POC ABG pO2 Sodium Potassium 5.5 H D Chloride Carbon Dioxide 17 L BUN 56 H Creatinine 3.1 H D Glucose Lactic Acid 3.2 H* Calcium AST Total Protein Albumin Crossmatch 10/03/16 10/03/16 10/03/16 08:19 14:25 17:45 WBC RBC 2.27 L Hgb 6.8 L D Hct 21.3 L D RDW 15.7 H Plt Count 122 L Seg Neuts % (Manual) Lymphocytes % (Manual) 9.0 L Monocytes % (Manual) Lymphocytes # (Manual) 0.9 L Monocytes # (Manual) PT INR APTT POC ABG pH POC ABG pCO2 POC ABG pO2 Sodium Potassium Chloride Carbon Dioxide BUN Creatinine Glucose Lactic Acid 5.7 H* Calcium AST Total Protein Albumin Crossmatch See Detail 10/03/16 10/03/16 10/03/16 17:45 17:45 18:34 WBC RBC Hgb Hct RDW Plt Count Seg Neuts % (Manual) Lymphocytes % (Manual) Monocytes % (Manual) Lymphocytes # (Manual) Monocytes # (Manual) PT 32.1 H INR 3.09 H APTT 121.1 H* POC ABG pH 7.058 L POC ABG pCO2 46.4 H POC ABG pO2 124 H Sodium 147 H Potassium Chloride 117.4 H Carbon Dioxide 16 L BUN 54 H Creatinine 2.8 H Glucose Lactic Acid Calcium 5.3 L* D AST 78 H Total Protein 2.9 L D Albumin 1.4 L Crossmatch 10/03/16 10/03/16 10/04/16 20:56 23:04 04:19 WBC RBC 2.80 L Hgb 8.0 L Hct 24.4 L RDW 16.3 H Plt Count 77 L Seg Neuts % (Manual) Lymphocytes % (Manual) Monocytes % (Manual) Lymphocytes # (Manual) Monocytes # (Manual) PT INR APTT POC ABG pH POC ABG pCO2 27.3 L POC ABG pO2 211 H Sodium Potassium Chloride Carbon Dioxide BUN Creatinine Glucose Lactic Acid 3.1 H* Calcium AST Total Protein Albumin Crossmatch 10/04/16 10/04/16 10/04/16 04:19 04:19 04:54 WBC RBC Hgb Hct RDW Plt Count Seg Neuts % (Manual) Lymphocytes % (Manual) Monocytes % (Manual) Lymphocytes # (Manual) Monocytes # (Manual) PT INR APTT POC ABG pH 7.489 H POC ABG pCO2 17.6 L POC ABG pO2 118 H Sodium 147 H Potassium Chloride 115.2 H Carbon Dioxide 20 L BUN 45 H Creatinine 2.2 H Glucose 150 H Lactic Acid 3.5 H* Calcium 5.7 L* AST Total Protein Albumin Crossmatch 10/04/16 10/04/16 10:55 Unknown WBC RBC Hgb Hct RDW Plt Count Seg Neuts % (Manual) Lymphocytes % (Manual) Monocytes % (Manual) Lymphocytes # (Manual) Monocytes # (Manual) PT INR APTT POC ABG pH 7.454 H POC ABG pCO2 27.9 L POC ABG pO2 Sodium Potassium Chloride Carbon Dioxide BUN Creatinine Glucose Lactic Acid 2.9 H* Calcium AST Total Protein Albumin Crossmatch Assessment and Plan 55 y/o female with 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 Aggressive IV resuscitation continues. CVP reading between 5-8. Will continue bolus of saline and transfusion of blood products. Goal would be to obtain CVP of 10-12. Patient mechanically ventilated and tolerated volume well. NO issues currently with oxygenation. 2. Severe metabolic acidosis from ischemic bowel and worsening lactic acidosis. Responding well with fluid resuscitation. BUN and CR are improving with volume. Follow up repeat lactic acid levels 3. Patient will need anticoagulation very soon. Spoke with surgery and most likely she will need an ostomy. They are ok with starting heparin right after surgery. Will not bolus, just start at a rate. 4. Continue IV abx therapy. 5. Overall prognosis is guarded. Long discussion with family at bedside this am. Will reassess once patient returns from OR later today. CCT 31 minutes.
[2016-10-04] MEDS ORDERED: NACL 0.9% IR ONE ×2 (12:28)
[2016-10-04] MEDS ORDERED: HEPARIN IV ONE (13:00)
[2016-10-04] MEDS ORDERED: HEPARIN 10,000 UNITS/10 ML ONE ×2 (13:12→13:13)
[2016-10-04] MEDS ORDERED: VERSED IV ONE (13:50)
--- NOTE | 2016-10-04 13:50 | Operative Report ---
Operative Report Operative Report: Operative note: Date: 10/04/2016 Preoperative diagnosis: Open abdomen, second look by general surgery Postoperative diagnosis: Same. Operation: SMA thrombectomy Surgeon: Jade Rizzo. Asst.: HAYLEY HECK Anesthesia: Gen. EBL: As per general surgery Note Findings: SMA thrombosis Indications:. 55-year-old with mesenteric ischemia after initial exploratory laparotomy yesterday brought back by general surgery for second look. Operative details: Patient was brought to the operating room by general surgery. Superior mesenteric artery was reexamined. There was no pulse palpable. Patient was heparinized with 3000 units of heparin. Proximal and distal control was gained by vessel loops. Arteriotomy was performed with 11 blade. #3 Handy was passed at the proximal part of SMA and clot removed was good forward flow identified. Handy was passed the distal part and there was no back bleeding identified. Arteriotomy was closed was 6-0 Prolene. Vessels were released. SMA had palpable pulse throughout its length. The rest of procedure will be dictated by Gen. surgery.
[2016-10-04] MEDS ORDERED: NEO SYNEPHRINE/NS Syringe(OR USE) IV ONE (13:59)
--- NOTE | 2016-10-04 14:31 | Operative Report ---
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 Postoperative diagnosis: Same. Operation: #1. Second look exploratory laparotomy after a small and large bowel resection yesterday. #2. Terminal ileostomy. #3. Superior mesenteric artery thrombectomy by vascular surgery service. Surgeon: Marcio Messer M.D. Asst.: Tg Tyler M.D. Findings: 54 years old female who yesterday underwent appropriate laparotomy, superior mesentery artery thrombectomy and segmental small bowel resection plus extended right hemicolectomy for superior mesenteric artery thrombosis and bowel ischemia. The patient was brought to the operating room today for second look laparotomy. At operation I couldn't feel pulses in the superior mesenteric artery so Dr. Rizzo was called in to evaluate the patient. She took over the procedure with the help of Dr. Mane to perform superior mesenteric artery thrombectomy. After they finished the procedure there was good pulse in the superior mesenteric artery. Procedure: Under general anesthesia the patient's abdomen was prepped and draped in the usual sterile manner. Proper timeout the plastic cover that had been sutured to this kidney and just after the posts in urine yesterday was removed. The small bowel was eviscerated. There was no major change in the small bowel circulation. Because I couldn't feel a pulse in the superior mesenteric artery I called Dr. Rizzo. They performed the procedure as reported by her in the operative note. They finished that and I took over the patient. At this time I decided not to remove any bowel to see if the congregational of the circulation improved its appearance over the next 24 hours. We decided to perform distal ileostomy to decompress the small bowel. The distal end of the small bowel with the staple line was brought out through a round incision in the right lower quadrant. The bowel was sutured to the fascia with interrupted stitches of 3-0 Vicryl. The distal staple line was cut off and the ostomy was matured with interrupted stitches of 4-0 Vicryl. An ostomy bag was put in place and the whole area was covered with an [place] drape. Estimated blood loss: 100 mL. Intravenous fluid replacement was crystalloid. Condition: Very critical. Prognosis: Poor.
--- NOTE | 2016-10-04 15:12 | Post Anesthesia Evaluation ---
- Post Anesthesia Evaluation Patient Participated: No Airway Patent: Yes Stable Respiratory Function: Yes Nausea/Vomiting: No Temp > 96.8F: Yes Pain Manageable: Yes Adequeate Hydration: Yes Anesthesia Complications: No Patient on Ventilator: Yes
[2016-10-04] MEDS: FLAGYL 500 MG/100 ML 100 ML IV SCH ×2 (15:22→22:19)
[2016-10-04] MEDS: PITRESSin 20 UNIT in NACL 0.9% 100 ML IV SCH ×2 (15:28→17:33)
[2016-10-04] MEDS: SODIUM BICARBONATE 150 MEQ in D5W 1,000 ML IV SCH (15:29)
[2016-10-04 15:33] LABS: Hematocrit 28.3 % (30.3-42.9); Hemoglobin 9.5 gm/dl (10.1-14.3)
[2016-10-04 15:45] LABS: INR 2.57 (0.87-1.13)
[2016-10-04 15:53] LABS: Partial Thromboplastin Time 111.9 Sec. (24.2-36.6)
[2016-10-04] MEDS ORDERED: NACL 0.9% 1000 ML 2,000 ML IV ONE (16:02)
[2016-10-04] MEDS ORDERED: ATIVAN IV PRN (16:37)
[2016-10-04 16:42] LABS: ISTAT Base Excess -7; ISTAT HCO3 20.1; ISTAT PCO2 46.2 (35-45); ISTAT PH 7.247 (7.35-7.45); ISTAT PO2 64 (80-105); ISTAT SO2 88; ISTAT TCO2 21
[2016-10-04 20:49] LABS: Hematocrit 25.5 % (30.3-42.9); Hemoglobin 8.4 gm/dl (10.1-14.3); Mean Corpuscular HGB Conc 33 % (30-34); Mean Corpuscular Hemoglobin 29 pg (28-32); Mean Corpuscular Volume 88 fl (79-97); Red Blood Count 2.92 M/mm3 (3.65-5.03); Red Cell Distribution Width 16.3 % (13.2-15.2); White Blood Count 12.1 K/mm3 (4.5-11.0)
[2016-10-04 20:50] LABS: Platelet Count 66 K/mm3 (140-440)
[2016-10-04] MEDS: HEPARIN/ 0.45% NACL-25,000 UNIT/500 ML 500 ML IV SCH (23:29)
[2016-10-05] MEDS ORDERED: NACL 0.9% IR ONE
[2016-10-05 00:45] LABS: ISTAT Base Excess -4; ISTAT HCO3 20.4; ISTAT PCO2 32.1 (35-45); ISTAT PH 7.412 (7.35-7.45); ISTAT PO2 62 (80-105); ISTAT SO2 92; ISTAT TCO2 21
[2016-10-05] MEDS ORDERED: fentaNYL DRIP Premix 100 ML IV ONE (01:07)
--- NOTE | 2016-10-05 01:10 | Event Note ---
Date: 10/05/16 Was contacted by the ICU neighborhood worker, Dr. Medardo Meza, who requested the patient be intubated. Patient apparently accidentally self extubated. Upon initial arrival, patient was on a nonrebreather, and appeared to be in severe respiratory distress. She was induced with 100 mg of ketamine, and paralyzed with 100 mg of vecuronium. A nasal cannula was placed on the patient' s nostril, running at 15 L/m, and the patient received pre-apneic oxygenation, and peter-apneic oxygenation. A 7-0 endotracheal tube was inserted using a Mac 3 blade with direct laryngoscopy, however initial intubation was of the esophagus. The patient did not desaturate. The tube was removed, and using direct medial laryngoscopy, a bougie introducer was then placed, and inserted into the trachea. A 7-0 endotracheal tube was then inserted over the bougie introducer, with good color change on end-tidal capnography, appropriate breath sounds bilaterally. Postintubation chest x-ray is pending. Postintubation management as per ICU team. Dr. Meza is informed. Vital Signs 09/28/16 10/02/16 10/02/16 12:00 00:38 01:47 Temperature 97.7 F 90.8 F L Pulse Rate 84 82 Pulse Rate [ From Monitor] Pulse Rate [ Right] Respiratory 18 20 20 Rate Respiratory Rate [Chest] Blood Pressure 140/90 200/100 Blood Pressure [Right Arm] Blood Pressure [Right] O2 Sat by Pulse 100 Oximetry 10/02/16 10/02/16 10/02/16 02:00 02:17 04:00 Temperature 94.8 F L 97.8 F Pulse Rate 82 80 Pulse Rate [ From Monitor] Pulse Rate [ Right] Respiratory 20 20 20 Rate Respiratory Rate [Chest] Blood Pressure Blood Pressure [Right Arm] Blood Pressure 183/96 186/93 [Right] O2 Sat by Pulse 99 99 Oximetry 10/02/16 10/02/16 10/02/16 04:04 04:26 04:34 Temperature Pulse Rate 82 Pulse Rate [ From Monitor] Pulse Rate [ Right] Respiratory 20 20 Rate Respiratory Rate [Chest] Blood Pressure 189/93 Blood Pressure [Right Arm] Blood Pressure [Right] O2 Sat by Pulse Oximetry 10/02/16 10/02/16 10/02/16 04:54 05:24 05:28 Temperature Pulse Rate 78 Pulse Rate [ From Monitor] Pulse Rate [ Right] Respiratory 20 20 20 Rate Respiratory Rate [Chest] Blood Pressure Blood Pressure [Right Arm] Blood Pressure 142/96 [Right] O2 Sat by Pulse 100 Oximetry 10/02/16 10/02/16 10/02/16 05:31 07:38 10:00 Temperature 97.4 F L 98.5 F Pulse Rate 78 Pulse Rate [ From Monitor] Pulse Rate [ 132 H 90 Right] Respiratory 24 18 Rate Respiratory Rate [Chest] Blood Pressure 142/96 Blood Pressure 77/53 138/94 [Right Arm] Blood Pressure [Right] O2 Sat by Pulse 90 97 Oximetry 10/02/16 10/02/16 10/02/16 10:39 16:20 22:00 Temperature 98.5 F Pulse Rate 78 Pulse Rate [ From Monitor] Pulse Rate [ 84 Right] Respiratory 18 Rate Respiratory Rate [Chest] Blood Pressure 142/96 Blood Pressure 132/84 [Right Arm] Blood Pressure [Right] O2 Sat by Pulse 95 Oximetry 10/02/16 10/02/16 10/03/16 23:00 23:14 01:15 Temperature 97.7 F 97.4 F L Pulse Rate 112 H Pulse Rate [ From Monitor] Pulse Rate [ 117 H 119 H Right] Respiratory 18 18 Rate Respiratory Rate [Chest] Blood Pressure 96/62 Blood Pressure 85/54 92/65 [Right Arm] Blood Pressure [Right] O2 Sat by Pulse 93 93 Oximetry 10/03/16 10/03/16 10/03/16 01:50 05:10 05:46 Temperature 97.4 F L Pulse Rate Pulse Rate [ From Monitor] Pulse Rate [ 120 H 135 H 136 H Right] Respiratory 20 Rate Respiratory Rate [Chest] Blood Pressure Blood Pressure 100/70 88/54 84/53 [Right Arm] Blood Pressure [Right] O2 Sat by Pulse 87 Oximetry 10/03/16 10/03/16 10/03/16 06:27 07:40 08:05 Temperature 97.4 F L Pulse Rate Pulse Rate [ From Monitor] Pulse Rate [ 130 H 132 H 129 H Right] Respiratory 24 Rate Respiratory Rate [Chest] Blood Pressure Blood Pressure 87/57 77/53 96/59 [Right Arm] Blood Pressure [Right] O2 Sat by Pulse 90 94 Oximetry 10/03/16 10/03/16 10/03/16 08:10 08:35 08:37 Temperature 97.4 F L Pulse Rate 80 Pulse Rate [ From Monitor] Pulse Rate [ 129 H Right] Respiratory 32 H 24 Rate Respiratory Rate [Chest] Blood Pressure Blood Pressure 96/59 [Right Arm] Blood Pressure [Right] O2 Sat by Pulse 88 92 Oximetry 10/03/16 10/03/16 10/03/16 09:00 09:14 10:00 Temperature Pulse Rate 122 H Pulse Rate [ From Monitor] Pulse Rate [ 124 H Right] Respiratory 22 22 Rate Respiratory Rate [Chest] Blood Pressure 81/54 Blood Pressure [Right Arm] Blood Pressure [Right] O2 Sat by Pulse 99 100 Oximetry 10/03/16 10/03/16 10/03/16 11:52 13:15 15:24 Temperature 97.4 F L 97 F L Pulse Rate 146 H Pulse Rate [ From Monitor] Pulse Rate [ 116 H 135 H Right] Respiratory 18 26 H 12 Rate Respiratory Rate [Chest] Blood Pressure 97/50 Blood Pressure 85/56 84/55 [Right Arm] Blood Pressure [Right] O2 Sat by Pulse 100 99 Oximetry 10/03/16 10/03/16 10/03/16 17:30 17:40 18:00 Temperature Pulse Rate 135 H 132 H 130 H Pulse Rate [ From Monitor] Pulse Rate [ Right] Respiratory 12 12 13 Rate Respiratory Rate [Chest] Blood Pressure 93/54 115/67 125/74 Blood Pressure [Right Arm] Blood Pressure [Right] O2 Sat by Pulse 99 99 99 Oximetry 10/03/16 10/03/16 10/03/16 18:30 19:00 19:26 Temperature Pulse Rate 120 H 114 H 114 H Pulse Rate [ From Monitor] Pulse Rate [ Right] Respiratory 13 12 12 Rate Respiratory Rate [Chest] Blood Pressure 125/100 114/56 103/54 Blood Pressure [Right Arm] Blood Pressure [Right] O2 Sat by Pulse 100 100 100 Oximetry 10/03/16 10/03/16 10/03/16 20:18 20:30 20:45 Temperature Pulse Rate 117 H 114 H 111 H Pulse Rate [ From Monitor] Pulse Rate [ Right] Respiratory 27 H 25 H 24 Rate Respiratory Rate [Chest] Blood Pressure 116/80 115/81 Blood Pressure [Right Arm] Blood Pressure [Right] O2 Sat by Pulse 100 Oximetry 10/03/16 10/03/16 10/03/16 21:00 21:03 21:15 Temperature Pulse Rate 111 H 113 H 111 H Pulse Rate [ From Monitor] Pulse Rate [ Right] Respiratory 19 21 Rate Respiratory Rate [Chest] Blood Pressure 124/85 124/85 134/89 Blood Pressure [Right Arm] Blood Pressure [Right] O2 Sat by Pulse 100 100 100 Oximetry 10/03/16 10/03/16 10/03/16 21:30 21:45 22:00 Temperature 97.0 F L Pulse Rate 119 H 119 H 110 H Pulse Rate [ From Monitor] Pulse Rate [ 132 H Right] Respiratory 18 19 12 Rate Respiratory Rate [Chest] Blood Pressure 141/95 139/98 131/89 Blood Pressure [Right Arm] Blood Pressure [Right] O2 Sat by Pulse 100 100 100 Oximetry 10/03/16 10/03/16 10/03/16 22:05 22:15 22:30 Temperature Pulse Rate 120 H 121 H 130 H Pulse Rate [ From Monitor] Pulse Rate [ Right] Respiratory 24 22 21 Rate Respiratory Rate [Chest] Blood Pressure 131/89 155/100 Blood Pressure [Right Arm] Blood Pressure [Right] O2 Sat by Pulse 100 100 100 Oximetry 10/03/16 10/03/16 10/03/16 22:45 23:00 23:06 Temperature 97.5 F L Pulse Rate 118 H 125 H 126 H Pulse Rate [ From Monitor] Pulse Rate [ Right] Respiratory 22 13 12 Rate Respiratory Rate [Chest] Blood Pressure 137/86 127/90 127/90 Blood Pressure [Right Arm] Blood Pressure [Right] O2 Sat by Pulse 99 100 100 Oximetry 10/03/16 10/03/16 10/03/16 23:11 23:15 23:21 Temperature 97.5 F L Pulse Rate 130 H 128 H 129 H Pulse Rate [ From Monitor] Pulse Rate [ Right] Respiratory 14 12 Rate Respiratory Rate [Chest] Blood Pressure 127/87 118/71 Blood Pressure [Right Arm] Blood Pressure [Right] O2 Sat by Pulse 100 99 100 Oximetry 10/03/16 10/03/16 10/03/16 23:30 23:35 23:44 Temperature Pulse Rate 125 H 124 H Pulse Rate [ From Monitor] Pulse Rate [ Right] Respiratory 13 12 Rate Respiratory 12 Rate [Chest] Blood Pressure 121/86 121/86 Blood Pressure [Right Arm] Blood Pressure [Right] O2 Sat by Pulse 99 100 Oximetry 10/03/16 10/03/16 10/03/16 23:45 23:46 23:51 Temperature 97.0 F L Pulse Rate 124 H 125 H 124 H Pulse Rate [ From Monitor] Pulse Rate [ Right] Respiratory 11 L 12 12 Rate Respiratory Rate [Chest] Blood Pressure 122/82 121/86 137/86 Blood Pressure [Right Arm] Blood Pressure [Right] O2 Sat by Pulse 99 100 100 Oximetry 10/03/16 10/04/16 10/04/16 23:55 00:00 00:01 Temperature 98.7 F Pulse Rate 124 H 125 H 126 H Pulse Rate [ From Monitor] Pulse Rate [ Right] Respiratory 13 13 14 Rate Respiratory Rate [Chest] Blood Pressure 121/86 132/88 132/88 Blood Pressure [Right Arm] Blood Pressure [Right] O2 Sat by Pulse 100 99 100 Oximetry 10/04/16 10/04/16 10/04/16 00:07 00:13 00:15 Temperature 97.8 F Pulse Rate 132 H 131 H Pulse Rate [ From Monitor] Pulse Rate [ Right] Respiratory 22 Rate Respiratory Rate [Chest] Blood Pressure 132/88 134/94 Blood Pressure [Right Arm] Blood Pressure [Right] O2 Sat by Pulse 99 99 Oximetry 10/04/16 10/04/16 10/04/16 00:21 00:30 00:45 Temperature 97.8 F Pulse Rate 132 H 128 H 129 H Pulse Rate [ From Monitor] Pulse Rate [ Right] Respiratory 12 24 17 Rate Respiratory Rate [Chest] Blood Pressure 132/88 127/82 124/90 Blood Pressure [Right Arm] Blood Pressure [Right] O2 Sat by Pulse 99 98 100 Oximetry 10/04/16 10/04/16 10/04/16 00:51 01:00 01:15 Temperature 97.6 F Pulse Rate 132 H 126 H 126 H Pulse Rate [ From Monitor] Pulse Rate [ Right] Respiratory 13 17 17 Rate Respiratory Rate [Chest] Blood Pressure 124/90 121/88 124/94 Blood Pressure [Right Arm] Blood Pressure [Right] O2 Sat by Pulse 100 100 Oximetry 10/04/16 10/04/16 10/04/16 01:21 01:30 01:45 Temperature 97.6 F Pulse Rate 126 H 126 H 126 H Pulse Rate [ From Monitor] Pulse Rate [ Right] Respiratory 16 16 17 Rate Respiratory Rate [Chest] Blood Pressure 144/83 141/99 142/95 Blood Pressure [Right Arm] Blood Pressure [Right] O2 Sat by Pulse 100 99 Oximetry 10/04/16 10/04/16 10/04/16 01:49 02:00 02:01 Temperature Pulse Rate 127 H 122 H 124 H Pulse Rate [ From Monitor] Pulse Rate [ Right] Respiratory 16 20 14 Rate Respiratory Rate [Chest] Blood Pressure 142/95 140/94 140/94 Blood Pressure [Right Arm] Blood Pressure [Right] O2 Sat by Pulse 100 100 100 Oximetry 10/04/16 10/04/16 10/04/16 02:15 02:30 02:45 Temperature Pulse Rate 124 H 124 H 123 H Pulse Rate [ From Monitor] Pulse Rate [ Right] Respiratory 15 14 22 Rate Respiratory Rate [Chest] Blood Pressure 141/93 147/89 142/88 Blood Pressure [Right Arm] Blood Pressure [Right] O2 Sat by Pulse 100 100 100 Oximetry 10/04/16 10/04/16 10/04/16 03:00 03:15 03:31 Temperature Pulse Rate 124 H 124 H 124 H Pulse Rate [ From Monitor] Pulse Rate [ Right] Respiratory 17 14 20 Rate Respiratory Rate [Chest] Blood Pressure 138/87 137/86 132/91 Blood Pressure [Right Arm] Blood Pressure [Right] O2 Sat by Pulse 100 99 100 Oximetry 10/04/16 10/04/16 10/04/16 03:45 03:54 04:00 Temperature 97.7 F Pulse Rate 123 H 124 H 127 H Pulse Rate [ From Monitor] Pulse Rate [ 142 H Right] Respiratory 22 13 13 Rate Respiratory Rate [Chest] Blood Pressure 134/83 137/86 139/83 Blood Pressure [Right Arm] Blood Pressure [Right] O2 Sat by Pulse 100 100 100 Oximetry 10/04/16 10/04/16 10/04/16 04:05 04:15 04:30 Temperature Pulse Rate 128 H 131 H 137 H Pulse Rate [ From Monitor] Pulse Rate [ Right] Respiratory 19 19 16 Rate Respiratory Rate [Chest] Blood Pressure 139/83 129/77 115/71 Blood Pressure [Right Arm] Blood Pressure [Right] O2 Sat by Pulse 100 99 97 Oximetry 10/04/16 10/04/16 10/04/16 04:45 04:46 05:00 Temperature Pulse Rate 142 H 142 H 145 H Pulse Rate [ From Monitor] Pulse Rate [ Right] Respiratory 17 18 Rate Respiratory Rate [Chest] Blood Pressure 113/68 113/68 122/78 Blood Pressure [Right Arm] Blood Pressure [Right] O2 Sat by Pulse 97 99 98 Oximetry 10/04/16 10/04/16 10/04/16 05:15 05:30 05:45 Temperature Pulse Rate 148 H 149 H 144 H Pulse Rate [ From Monitor] Pulse Rate [ Right] Respiratory 21 19 24 Rate Respiratory Rate [Chest] Blood Pressure 137/77 133/83 133/70 Blood Pressure [Right Arm] Blood Pressure [Right] O2 Sat by Pulse 96 97 97 Oximetry 10/04/16 10/04/16 10/04/16 06:00 06:15 06:30 Temperature Pulse Rate 147 H 147 H 148 H Pulse Rate [ From Monitor] Pulse Rate [ Right] Respiratory 21 18 19 Rate Respiratory Rate [Chest] Blood Pressure 103/72 102/65 97/66 Blood Pressure [Right Arm] Blood Pressure [Right] O2 Sat by Pulse 97 98 97 Oximetry 10/04/16 10/04/16 10/04/16 06:45 07:00 07:07 Temperature Pulse Rate 147 H 146 H 147 H Pulse Rate [ From Monitor] Pulse Rate [ Right] Respiratory 16 14 19 Rate Respiratory Rate [Chest] Blood Pressure 86/65 101/68 101/68 Blood Pressure [Right Arm] Blood Pressure [Right] O2 Sat by Pulse 99 99 Oximetry 10/04/16 10/04/16 10/04/16 07:15 07:31 07:45 Temperature Pulse Rate 145 H 139 H 138 H Pulse Rate [ From Monitor] Pulse Rate [ Right] Respiratory 13 19 17 Rate Respiratory Rate [Chest] Blood Pressure 85/54 97/61 100/67 Blood Pressure [Right Arm] Blood Pressure [Right] O2 Sat by Pulse 98 99 99 Oximetry 10/04/16 10/04/16 10/04/16 07:46 07:50 07:51 Temperature 98.7 F 98.7 F Pulse Rate 139 H 137 H Pulse Rate [ From Monitor] Pulse Rate [ Right] Respiratory 18 10 L Rate Respiratory Rate [Chest] Blood Pressure 108/60 100/67 Blood Pressure [Right Arm] Blood Pressure [Right] O2 Sat by Pulse 100 Oximetry 10/04/16 10/04/16 10/04/16 07:57 08:00 08:05 Temperature 97.5 F L Pulse Rate 135 H 133 H Pulse Rate [ 134 H From Monitor] Pulse Rate [ Right] Respiratory 13 11 L Rate Respiratory Rate [Chest] Blood Pressure 100/67 114/57 Blood Pressure [Right Arm] Blood Pressure [Right] O2 Sat by Pulse 100 100 100 Oximetry 10/04/16 10/04/16 10/04/16 08:08 08:15 08:30 Temperature Pulse Rate 139 H 132 H 134 H Pulse Rate [ From Monitor] Pulse Rate [ Right] Respiratory 13 16 Rate Respiratory Rate [Chest] Blood Pressure 108/60 120/72 125/62 Blood Pressure [Right Arm] Blood Pressure [Right] O2 Sat by Pulse 100 100 99 Oximetry 10/04/16 10/04/16 10/04/16 08:35 08:45 08:59 Temperature 97.6 F Pulse Rate 135 H 137 H 140 H Pulse Rate [ From Monitor] Pulse Rate [ Right] Respiratory 11 L 14 14 Rate Respiratory Rate [Chest] Blood Pressure 115/70 112/64 112/64 Blood Pressure [Right Arm] Blood Pressure [Right] O2 Sat by Pulse 100 99 99 Oximetry 10/04/16 10/04/16 10/04/16 09:00 09:04 09:15 Temperature 97.0 F L Pulse Rate 139 H 138 H 138 H Pulse Rate [ From Monitor] Pulse Rate [ Right] Respiratory 17 14 10 L Rate Respiratory Rate [Chest] Blood Pressure 97/60 102/56 110/69 Blood Pressure [Right Arm] Blood Pressure [Right] O2 Sat by Pulse 99 99 Oximetry 10/04/16 10/04/16 10/04/16 09:30 09:35 09:45 Temperature 97.5 F L Pulse Rate 137 H 131 H 130 H Pulse Rate [ From Monitor] Pulse Rate [ Right] Respiratory 22 18 22 Rate Respiratory Rate [Chest] Blood Pressure 115/73 142/72 141/89 Blood Pressure [Right Arm] Blood Pressure [Right] O2 Sat by Pulse 99 98 Oximetry 10/04/16 10/04/16 10/04/16 10:00 10:15 10:29 Temperature Pulse Rate 131 H 130 H 130 H Pulse Rate [ From Monitor] Pulse Rate [ Right] Respiratory 14 16 13 Rate Respiratory Rate [Chest] Blood Pressure 136/91 144/88 144/88 Blood Pressure [Right Arm] Blood Pressure [Right] O2 Sat by Pulse 100 98 100 Oximetry 10/04/16 10/04/16 10/04/16 10:30 10:45 11:00 Temperature 97.5 F L 97.4 F L Pulse Rate 127 H 128 H 125 H Pulse Rate [ From Monitor] Pulse Rate [ Right] Respiratory 17 17 12 Rate Respiratory Rate [Chest] Blood Pressure 136/90 136/92 155/92 Blood Pressure [Right Arm] Blood Pressure [Right] O2 Sat by Pulse 100 100 98 Oximetry 10/04/16 10/04/16 10/04/16 11:11 11:15 12:00 Temperature 97.4 F L Pulse Rate 130 H 130 H Pulse Rate [ From Monitor] Pulse Rate [ Right] Respiratory 16 Rate Respiratory Rate [Chest] Blood Pressure 141/73 156/96 Blood Pressure [Right Arm] Blood Pressure [Right] O2 Sat by Pulse 100 98 Oximetry 10/04/16 10/04/16 10/04/16 14:35 14:39 14:45 Temperature 98.1 F Pulse Rate 129 H 129 H 137 H Pulse Rate [ From Monitor] Pulse Rate [ Right] Respiratory 22 17 19 Rate Respiratory Rate [Chest] Blood Pressure 160/106 160/106 146/110 Blood Pressure [Right Arm] Blood Pressure [Right] O2 Sat by Pulse 100 94 82 L Oximetry 10/04/16 10/04/16 10/04/16 15:00 15:01 15:10 Temperature Pulse Rate 119 H 121 H 115 H Pulse Rate [ From Monitor] Pulse Rate [ Right] Respiratory 22 20 22 Rate Respiratory Rate [Chest] Blood Pressure 98/68 98/68 99/66 Blood Pressure [Right Arm] Blood Pressure [Right] O2 Sat by Pulse 100 100 100 Oximetry 10/04/16 10/04/16 10/04/16 15:15 15:30 15:40 Temperature Pulse Rate 112 H 129 H 116 H Pulse Rate [ From Monitor] Pulse Rate [ Right] Respiratory 18 22 22 Rate Respiratory Rate [Chest] Blood Pressure 106/75 155/95 111/70 Blood Pressure [Right Arm] Blood Pressure [Right] O2 Sat by Pulse 95 100 Oximetry 10/04/16 10/04/16 10/04/16 15:45 15:50 16:00 Temperature 97.5 F L Pulse Rate 121 H 119 H 126 H Pulse Rate [ 125 H From Monitor] Pulse Rate [ Right] Respiratory 20 22 22 Rate Respiratory Rate [Chest] Blood Pressure 115/71 115/71 123/79 Blood Pressure [Right Arm] Blood Pressure [Right] O2 Sat by Pulse 93 100 100 Oximetry 10/04/16 10/04/16 10/04/16 16:15 16:31 16:45 Temperature Pulse Rate 138 H 146 H 135 H Pulse Rate [ From Monitor] Pulse Rate [ Right] Respiratory 22 23 23 Rate Respiratory Rate [Chest] Blood Pressure 166/106 157/115 157/115 Blood Pressure [Right Arm] Blood Pressure [Right] O2 Sat by Pulse 95 84 100 Oximetry 10/04/16 10/04/16 10/04/16 16:49 17:01 17:15 Temperature Pulse Rate 137 H 138 H 124 H Pulse Rate [ From Monitor] Pulse Rate [ Right] Respiratory 11 L 23 26 H Rate Respiratory Rate [Chest] Blood Pressure 140/81 144/87 82/49 Blood Pressure [Right Arm] Blood Pressure [Right] O2 Sat by Pulse 100 100 Oximetry 10/04/16 10/04/16 10/04/16 17:30 17:45 18:01 Temperature Pulse Rate 121 H 120 H 117 H Pulse Rate [ From Monitor] Pulse Rate [ Right] Respiratory 22 14 16 Rate Respiratory Rate [Chest] Blood Pressure 82/51 99/51 99/51 Blood Pressure [Right Arm] Blood Pressure [Right] O2 Sat by Pulse 97 100 96 Oximetry 10/04/16 10/04/16 10/04/16 18:15 18:31 18:39 Temperature Pulse Rate 118 H 127 H 112 H Pulse Rate [ From Monitor] Pulse Rate [ Right] Respiratory 21 14 22 Rate Respiratory Rate [Chest] Blood Pressure 124/83 106/59 106/59 Blood Pressure [Right Arm] Blood Pressure [Right] O2 Sat by Pulse 100 99 Oximetry 10/04/16 10/04/16 10/04/16 18:45 19:00 19:15 Temperature Pulse Rate 110 H 124 H 112 H Pulse Rate [ From Monitor] Pulse Rate [ Right] Respiratory 20 20 21 Rate Respiratory Rate [Chest] Blood Pressure 106/59 143/86 119/61 Blood Pressure [Right Arm] Blood Pressure [Right] O2 Sat by Pulse 22 L 100 97 Oximetry 10/04/16 10/04/16 10/04/16 19:25 19:30 19:42 Temperature 99.6 F Pulse Rate 113 H 109 H Pulse Rate [ From Monitor] Pulse Rate [ Right] Respiratory 17 Rate Respiratory Rate [Chest] Blood Pressure 109/74 109/74 Blood Pressure [Right Arm] Blood Pressure [Right] O2 Sat by Pulse 100 100 Oximetry 10/04/16 10/04/16 10/04/16 19:45 20:01 20:15 Temperature Pulse Rate 122 H 134 H 116 H Pulse Rate [ From Monitor] Pulse Rate [ Right] Respiratory 13 21 22 Rate Respiratory Rate [Chest] Blood Pressure 159/80 167/86 167/86 Blood Pressure [Right Arm] Blood Pressure [Right] O2 Sat by Pulse 100 86 100 Oximetry 10/04/16 10/04/16 10/04/16 20:30 20:45 21:00 Temperature Pulse Rate 113 H 121 H 119 H Pulse Rate [ From Monitor] Pulse Rate [ Right] Respiratory 21 24 22 Rate Respiratory Rate [Chest] Blood Pressure 121/83 140/95 133/86 Blood Pressure [Right Arm] Blood Pressure [Right] O2 Sat by Pulse 98 94 96 Oximetry 10/04/16 10/04/16 10/04/16 21:15 21:30 21:45 Temperature Pulse Rate 118 H 111 H 114 H Pulse Rate [ From Monitor] Pulse Rate [ Right] Respiratory 22 25 H 23 Rate Respiratory Rate [Chest] Blood Pressure 111/72 121/87 112/81 Blood Pressure [Right Arm] Blood Pressure [Right] O2 Sat by Pulse 57 L Oximetry 10/04/16 10/04/16 10/04/16 22:00 22:07 22:09 Temperature Pulse Rate 117 H 115 H 103 H Pulse Rate [ From Monitor] Pulse Rate [ Right] Respiratory 26 H 23 25 H Rate Respiratory Rate [Chest] Blood Pressure 123/82 121/87 121/87 Blood Pressure [Right Arm] Blood Pressure [Right] O2 Sat by Pulse Oximetry 10/04/16 10/04/16 10/04/16 22:15 22:30 22:45 Temperature Pulse Rate 116 H 114 H 117 H Pulse Rate [ From Monitor] Pulse Rate [ Right] Respiratory 18 25 H 22 Rate Respiratory Rate [Chest] Blood Pressure 121/87 120/80 140/80 Blood Pressure [Right Arm] Blood Pressure [Right] O2 Sat by Pulse 100 100 Oximetry 10/04/16 10/04/16 10/04/16 23:00 23:15 23:24 Temperature Pulse Rate 115 H 108 H 119 H Pulse Rate [ From Monitor] Pulse Rate [ Right] Respiratory 25 H 16 Rate Respiratory Rate [Chest] Blood Pressure 120/77 120/77 112/88 Blood Pressure [Right Arm] Blood Pressure [Right] O2 Sat by Pulse 91 100 100 Oximetry 10/04/16 10/04/16 23:31 23:35 Temperature 97.7 F Pulse Rate 112 H Pulse Rate [ From Monitor] Pulse Rate [ Right] Respiratory 24 Rate Respiratory Rate [Chest] Blood Pressure 105/78 Blood Pressure [Right Arm] Blood Pressure [Right] O2 Sat by Pulse 100 Oximetry
--- NOTE | 2016-10-05 01:44 | XRay Report ---
FINAL REPORT EXAM: XR CHEST 1V AP HISTORY: ett placement COMPARISON: October 03, 2016. FINDINGS: Frontal view(s) of the chest obtained. Stable borderline cardiac enlargement. Stable positioning of ET tube. Distal tip terminates 5.5 centimeters in the [place]. Right IJ line and NG tube remain in place. Decrease in size of left-sided pleural effusion with improved aeration of patchy consolidation at the left lung base. No gross pneumothorax. IMPRESSION: ET tube, NG tube and right IJ line remain in place. Improved aeration of the left lung base with decreasing consolidation and effusion.
[2016-10-05] MEDS ORDERED: ATIVAN 100 MG in NACL 0.9% 50 ML, VIAFLEX EMPTY CONTAINER 0 ML IV SCH (02:00)
[2016-10-05 05:24] LABS: Hematocrit 20.2 % (30.3-42.9); Hemoglobin 6.7 gm/dl (10.1-14.3); Mean Corpuscular HGB Conc 33 % (30-34); Mean Corpuscular Hemoglobin 29 pg (28-32); Mean Corpuscular Volume 87 fl (79-97); Red Blood Count 2.32 M/mm3 (3.65-5.03); Red Cell Distribution Width 16.7 % (13.2-15.2); White Blood Count 16.8 K/mm3 (4.5-11.0)
[2016-10-05 05:27] LABS: Platelet Count 87 K/mm3 (140-440)
[2016-10-05 05:28] LABS: BUN/Creatinine Ratio 17.05; Calcium 6.4 mg/dL (8.4-10.2); Chloride 115.8 mmol/L (98-107); Potassium 4.7 mmol/L (3.6-5.0)
[2016-10-05] MEDS ORDERED: ZEMURON IV ONE ×3 (05:59→14:49)
[2016-10-05] MEDS ORDERED: KETALAR ONE (05:59)
[2016-10-05] MEDS: PITRESSin 20 UNIT in NACL 0.9% 100 ML IV SCH (06:01)
[2016-10-05] MEDS: FLAGYL 500 MG/100 ML 100 ML IV SCH ×5 (06:04→22:11)
[2016-10-05] MEDS: SODIUM BICARBONATE 150 MEQ in D5W 1,000 ML IV SCH (06:25)
[2016-10-05 06:41] LABS: ISTAT Base Excess -3; ISTAT HCO3 24.7; ISTAT PCO2 59.9 (35-45); ISTAT PH 7.223 (7.35-7.45); ISTAT PO2 68 (80-105); ISTAT SO2 89; ISTAT TCO2 27
[2016-10-05] MEDS: HEPARIN/ 0.45% NACL-25,000 UNIT/500 ML 500 ML IV SCH (06:50)
--- NOTE | 2016-10-05 08:20 | Progress Note ---
Assessment and Plan - Patient Problems (1) ELLIOTT (acute kidney injury) Current Visit: Yes Status: Acute Plan to address problem: Acute Kidney Injury in the setting of hypotension, shock and Iv contrast. Renal function continue to improve. Continue IV fluids. (2) Lactic acidosis Current Visit: Yes Status: Acute Plan to address problem: Improved. (3) Shock Current Visit: Yes Status: Acute Plan to address problem: Patient is hemodynamically better. Off pressors. 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 (5) Anemia Current Visit: Yes Status: Acute Plan to address problem: S/p PRBC. Subjective Date of service: 10/05/16 Interval history: Patient is sedated. Objective - Vital Signs Vital signs: Vital Signs - 12hr 10/04/16 10/04/16 10/04/16 20:30 20:45 21:00 Temperature Pulse Rate 113 H 121 H 119 H Respiratory 21 24 22 Rate Blood Pressure 121/83 140/95 133/86 O2 Sat by Pulse 98 94 96 Oximetry 10/04/16 10/04/16 10/04/16 21:15 21:30 21:45 Temperature Pulse Rate 118 H 111 H 114 H Respiratory 22 25 H 23 Rate Blood Pressure 111/72 121/87 112/81 O2 Sat by Pulse 57 L Oximetry 10/04/16 10/04/16 10/04/16 22:00 22:07 22:09 Temperature Pulse Rate 117 H 115 H 103 H Respiratory 26 H 23 25 H Rate Blood Pressure 123/82 121/87 121/87 O2 Sat by Pulse Oximetry 10/04/16 10/04/16 10/04/16 22:15 22:30 22:45 Temperature Pulse Rate 116 H 114 H 117 H Respiratory 18 25 H 22 Rate Blood Pressure 121/87 120/80 140/80 O2 Sat by Pulse 100 100 Oximetry 10/04/16 10/04/16 10/04/16 23:00 23:15 23:24 Temperature Pulse Rate 115 H 108 H 119 H Respiratory 25 H 16 Rate Blood Pressure 120/77 120/77 112/88 O2 Sat by Pulse 91 100 100 Oximetry 10/04/16 10/04/16 10/04/16 23:31 23:35 23:45 Temperature 97.7 F Pulse Rate 116 H 113 H Respiratory 26 H 25 H Rate Blood Pressure 105/78 119/80 O2 Sat by Pulse 100 100 Oximetry 10/05/16 10/05/16 10/05/16 00:00 00:15 00:30 Temperature Pulse Rate 121 H 128 H 121 H Respiratory 24 31 H 24 Rate Blood Pressure 130/76 130/76 118/78 O2 Sat by Pulse 100 95 96 Oximetry 10/05/16 10/05/16 10/05/16 00:45 01:00 01:15 Temperature Pulse Rate 119 H 142 H 142 H Respiratory 24 11 L 12 Rate Blood Pressure 121/75 121/85 109/68 O2 Sat by Pulse 96 98 97 Oximetry 10/05/16 10/05/16 10/05/16 01:30 01:45 02:00 Temperature Pulse Rate 137 H 135 H 133 H Respiratory 12 12 12 Rate Blood Pressure 109/69 109/69 117/74 O2 Sat by Pulse 98 Oximetry 10/05/16 10/05/16 10/05/16 02:01 02:15 02:30 Temperature Pulse Rate 133 H 133 H 130 H Respiratory 12 12 12 Rate Blood Pressure 117/74 117/75 120/71 O2 Sat by Pulse 97 96 Oximetry 10/05/16 10/05/16 10/05/16 02:45 03:00 03:15 Temperature Pulse Rate 130 H 128 H 128 H Respiratory 12 12 12 Rate Blood Pressure 113/64 111/71 112/74 O2 Sat by Pulse 96 97 Oximetry 10/05/16 10/05/16 10/05/16 03:30 03:45 04:00 Temperature 98.4 F Pulse Rate 126 H 126 H 127 H Respiratory 12 12 12 Rate Blood Pressure 109/73 117/69 105/70 O2 Sat by Pulse 98 97 Oximetry 10/05/16 10/05/16 10/05/16 04:15 04:30 04:45 Temperature Pulse Rate 119 H 121 H 122 H Respiratory 10 L 12 12 Rate Blood Pressure 105/70 100/70 103/69 O2 Sat by Pulse 97 Oximetry 10/05/16 10/05/16 10/05/16 05:00 05:11 05:15 Temperature Pulse Rate 119 H 120 H 121 H Respiratory 12 12 12 Rate Blood Pressure 110/71 110/71 115/72 O2 Sat by Pulse 99 91 90 Oximetry 10/05/16 10/05/16 10/05/16 05:30 05:45 06:00 Temperature Pulse Rate 120 H 119 H 118 H Respiratory 12 16 16 Rate Blood Pressure 120/69 118/77 97/67 O2 Sat by Pulse 100 100 Oximetry 10/05/16 10/05/16 10/05/16 06:15 07:26 07:43 Temperature 98.2 F Pulse Rate 118 H 119 H Respiratory 16 Rate Blood Pressure 110/74 93/72 O2 Sat by Pulse 100 100 Oximetry 10/05/16 08:15 Temperature 98.2 F Pulse Rate 119 H Respiratory 18 Rate Blood Pressure 101/69 O2 Sat by Pulse 100 Oximetry - General Appearance General appearance: well-developed, sedated on ventilator, intubated EENT: other (small pupils) Neck: supple Respiratory: Present: Other (coarse breath sounds) Cardiology: regular, S1S2, no murmurs Gastrointestinal: other (abdominal surgical dressing noted) Integumentary: no rash Neurologic: other (sedated) Musculoskeletal: other (right AKA) Psychiatric: other (sedated) - Lab 10/05/16 12:30 10/05/16 04:00 Most recent lab results Calcium 6.4 mg/dL (8.4-10.2) L 10/05/16 04:00 Urine Creatinine 53.3 mg/dL (0.1-20.0) H 10/04/16 03:58 Urine Sodium 96 mEq/L 10/04/16 03:58
--- NOTE | 2016-10-05 08:43 | Progress Note ---
Subjective Date of service: 10/05/16 Interval history: Patient seen on second surgery post op day 1. Patient intubated and sedated on vent, on vasopressin, receiving blood, and on heparin. Patient comfortable as a result of lorazepam and fentanyl drips. Objective - Constitutional Vitals: Vital Signs - 12hr 10/04/16 10/04/16 10/04/16 20:45 21:00 21:15 Temperature Pulse Rate 121 H 119 H 118 H Respiratory 24 22 22 Rate Blood Pressure 140/95 133/86 111/72 O2 Sat by Pulse 94 96 57 L Oximetry 10/04/16 10/04/16 10/04/16 21:30 21:45 22:00 Temperature Pulse Rate 111 H 114 H 117 H Respiratory 25 H 23 26 H Rate Blood Pressure 121/87 112/81 123/82 O2 Sat by Pulse Oximetry 10/04/16 10/04/16 10/04/16 22:07 22:09 22:15 Temperature Pulse Rate 115 H 103 H 116 H Respiratory 23 25 H 18 Rate Blood Pressure 121/87 121/87 121/87 O2 Sat by Pulse Oximetry 10/04/16 10/04/16 10/04/16 22:30 22:45 23:00 Temperature Pulse Rate 114 H 117 H 115 H Respiratory 25 H 22 25 H Rate Blood Pressure 120/80 140/80 120/77 O2 Sat by Pulse 100 100 91 Oximetry 10/04/16 10/04/16 10/04/16 23:15 23:24 23:31 Temperature Pulse Rate 108 H 119 H 116 H Respiratory 16 26 H Rate Blood Pressure 120/77 112/88 105/78 O2 Sat by Pulse 100 100 100 Oximetry 10/04/16 10/04/16 10/05/16 23:35 23:45 00:00 Temperature 97.7 F Pulse Rate 113 H 121 H Respiratory 25 H 24 Rate Blood Pressure 119/80 130/76 O2 Sat by Pulse 100 100 Oximetry 10/05/16 10/05/16 10/05/16 00:15 00:30 00:45 Temperature Pulse Rate 128 H 121 H 119 H Respiratory 31 H 24 24 Rate Blood Pressure 130/76 118/78 121/75 O2 Sat by Pulse 95 96 96 Oximetry 10/05/16 10/05/16 10/05/16 01:00 01:15 01:30 Temperature Pulse Rate 142 H 142 H 137 H Respiratory 11 L 12 12 Rate Blood Pressure 121/85 109/68 109/69 O2 Sat by Pulse 98 97 Oximetry 10/05/16 10/05/16 10/05/16 01:45 02:00 02:01 Temperature Pulse Rate 135 H 133 H 133 H Respiratory 12 12 12 Rate Blood Pressure 109/69 117/74 117/74 O2 Sat by Pulse 98 97 Oximetry 10/05/16 10/05/16 10/05/16 02:15 02:30 02:45 Temperature Pulse Rate 133 H 130 H 130 H Respiratory 12 12 12 Rate Blood Pressure 117/75 120/71 113/64 O2 Sat by Pulse 96 96 Oximetry 10/05/16 10/05/16 10/05/16 03:00 03:15 03:30 Temperature Pulse Rate 128 H 128 H 126 H Respiratory 12 12 12 Rate Blood Pressure 111/71 112/74 109/73 O2 Sat by Pulse 97 98 Oximetry 10/05/16 10/05/16 10/05/16 03:45 04:00 04:15 Temperature 98.4 F Pulse Rate 126 H 127 H 119 H Respiratory 12 12 10 L Rate Blood Pressure 117/69 105/70 105/70 O2 Sat by Pulse 97 Oximetry 10/05/16 10/05/16 10/05/16 04:30 04:45 05:00 Temperature Pulse Rate 121 H 122 H 119 H Respiratory 12 12 12 Rate Blood Pressure 100/70 103/69 110/71 O2 Sat by Pulse 97 99 Oximetry 10/05/16 10/05/16 10/05/16 05:11 05:15 05:30 Temperature Pulse Rate 120 H 121 H 120 H Respiratory 12 12 12 Rate Blood Pressure 110/71 115/72 120/69 O2 Sat by Pulse 91 90 Oximetry 10/05/16 10/05/16 10/05/16 05:45 06:00 06:15 Temperature Pulse Rate 119 H 118 H 118 H Respiratory 16 16 16 Rate Blood Pressure 118/77 97/67 110/74 O2 Sat by Pulse 100 100 100 Oximetry 10/05/16 10/05/16 10/05/16 07:26 07:43 08:15 Temperature 98.2 F 98.2 F Pulse Rate 119 H 119 H Respiratory 18 Rate Blood Pressure 93/72 101/69 O2 Sat by Pulse 100 100 Oximetry - Labs CBC & Chem 7: 10/05/16 04:00 10/05/16 04:00 Labs: Abnormal lab results 10/03/16 10/04/16 10/04/16 Range/Units 14:25 03:58 10:55 WBC (4.5-11.0) K/mm3 RBC (3.65-5.03) M/mm3 Hgb (10.1-14.3) gm/dl Hct (30.3-42.9) % RDW (13.2-15.2) % Plt Count (140-440) K/mm3 PT (12.2-14.9) Sec. INR (0.87-1.13) APTT (24.2-36.6) Sec. Heparin Anti-Xa Level (0.3-0.7) U.I./ml POC ABG pH 7.454 H (7.35-7.45) POC ABG pCO2 27.9 L (35-45) POC ABG pO2 (80-105) Sodium (137-145) mmol/L Chloride (98-107) mmol/L BUN (7-17) mg/dL Creatinine (0.7-1.2) mg/dL Glucose (65-100) mg/dL Lactic Acid (0.7-2.0) mmol/L Calcium (8.4-10.2) mg/dL Urine Creatinine 53.3 H (0.1-20.0) mg/dL Crossmatch See Detail 10/04/16 10/04/16 10/04/16 Range/Units 15:20 15:20 16:19 WBC (4.5-11.0) K/mm3 RBC (3.65-5.03) M/mm3 Hgb 9.5 L (10.1-14.3) gm/dl Hct 28.3 L (30.3-42.9) % RDW (13.2-15.2) % Plt Count 66 L (140-440) K/mm3 PT 27.7 H (12.2-14.9) Sec. INR 2.57 H (0.87-1.13) APTT 111.9 H* (24.2-36.6) Sec. Heparin Anti-Xa Level (0.3-0.7) U.I./ml POC ABG pH 7.247 L (7.35-7.45) POC ABG pCO2 46.2 H (35-45) POC ABG pO2 64 L (80-105) Sodium (137-145) mmol/L Chloride (98-107) mmol/L BUN (7-17) mg/dL Creatinine (0.7-1.2) mg/dL Glucose (65-100) mg/dL Lactic Acid (0.7-2.0) mmol/L Calcium (8.4-10.2) mg/dL Urine Creatinine (0.1-20.0) mg/dL Crossmatch 10/04/16 10/04/16 10/04/16 Range/Units 19:55 22:26 Unknown WBC 12.1 H (4.5-11.0) K/mm3 RBC 2.92 L (3.65-5.03) M/mm3 Hgb 8.4 L (10.1-14.3) gm/dl Hct 25.5 L (30.3-42.9) % RDW 16.3 H (13.2-15.2) % Plt Count 66 L (140-440) K/mm3 PT (12.2-14.9) Sec. INR (0.87-1.13) APTT (24.2-36.6) Sec. Heparin Anti-Xa Level 0.24 L (0.3-0.7) U.I./ml POC ABG pH (7.35-7.45) POC ABG pCO2 (35-45) POC ABG pO2 (80-105) Sodium (137-145) mmol/L Chloride (98-107) mmol/L BUN (7-17) mg/dL Creatinine (0.7-1.2) mg/dL Glucose (65-100) mg/dL Lactic Acid 2.9 H* (0.7-2.0) mmol/L Calcium (8.4-10.2) mg/dL Urine Creatinine (0.1-20.0) mg/dL Crossmatch 10/05/16 10/05/16 10/05/16 Range/Units 00:34 04:00 04:00 WBC 16.8 H (4.5-11.0) K/mm3 RBC 2.32 L (3.65-5.03) M/mm3 Hgb 6.7 L (10.1-14.3) gm/dl Hct 20.2 L (30.3-42.9) % RDW 16.7 H (13.2-15.2) % Plt Count 87 L (140-440) K/mm3 PT (12.2-14.9) Sec. INR (0.87-1.13) APTT (24.2-36.6) Sec. Heparin Anti-Xa Level (0.3-0.7) U.I./ml POC ABG pH (7.35-7.45) POC ABG pCO2 32.1 L (35-45) POC ABG pO2 62 L (80-105) Sodium 151 H (137-145) mmol/L Chloride 115.8 H (98-107) mmol/L BUN 29 H (7-17) mg/dL Creatinine 1.7 H (0.7-1.2) mg/dL Glucose 142 H (65-100) mg/dL Lactic Acid (0.7-2.0) mmol/L Calcium 6.4 L (8.4-10.2) mg/dL Urine Creatinine (0.1-20.0) mg/dL Crossmatch 10/05/16 Range/Units 05:35 WBC (4.5-11.0) K/mm3 RBC (3.65-5.03) M/mm3 Hgb (10.1-14.3) gm/dl Hct (30.3-42.9) % RDW (13.2-15.2) % Plt Count (140-440) K/mm3 PT (12.2-14.9) Sec. INR (0.87-1.13) APTT (24.2-36.6) Sec. Heparin Anti-Xa Level (0.3-0.7) U.I./ml POC ABG pH 7.223 L (7.35-7.45) POC ABG pCO2 59.9 H (35-45) POC ABG pO2 68 L (80-105) Sodium (137-145) mmol/L Chloride (98-107) mmol/L BUN (7-17) mg/dL Creatinine (0.7-1.2) mg/dL Glucose (65-100) mg/dL Lactic Acid (0.7-2.0) mmol/L Calcium (8.4-10.2) mg/dL Urine Creatinine (0.1-20.0) mg/dL Crossmatch
--- NOTE | 2016-10-05 08:44 | Anesthesia Day of Surgery ---
Anesthesia Day of Surgery - Day of Surgery Patient Examined: Yes Patient is NPO: Yes (pt sedated, intubated, on heparin, vasopressin, receiving blood)
[2016-10-05] MEDS: fentaNYL DRIP Premix 100 ML IV SCH (09:05)
[2016-10-05 09:52] LABS: ISTAT Base Excess -1; ISTAT HCO3 24.2; ISTAT PCO2 41.1 (35-45); ISTAT PH 7.378 (7.35-7.45); ISTAT PO2 149 (80-105); ISTAT SO2 99; ISTAT TCO2 25
[2016-10-05] MEDS: PEPCID IV SCH (10:34)
[2016-10-05] MEDS: LEVAQUIN 750MG/150ML 150 ML IV SCH (10:34)
[2016-10-05] MEDS ORDERED: SUBLIMAZE ONE (11:20)
--- NOTE | 2016-10-05 11:25 | Progress Note ---
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 Coagulopathy. Patient developed SMA infarct after being off anticoagulation for only a few days. She had surgery and then she infarcted again after having an INR of 3. The decision to start heparin was discussed across disciplines and joint agreement as the the benefits at this juncture outweigh the risk of bleeding. We will continue to check q6hr H/H's and transfuse for HgB for less than 7.0. 2. mesenteric ischemia: Ostomy placed on yesterday. Back to OR today for possible closure and further removal if necessary of gut 3. Continue IV resuscitation. BP now stable. Will stop bicarb drip and change to D5W now that Na and Chloride are elevated 4. Continue IV abx therapy. 5. Overall prognosis is guarded. Long discussion with family at bedside this am. Will reassess once patient returns from OR later today. CCT 31 minutes. Subjective Date of service: 10/05/16 Interval history: Self Extubation on last night. Re-intubated by ED at my request. Tolerated well. Placed on continous sedation but too much as she developed a respiratory acidosis. Increased RR and this has improved. Awakens off sedation and follows commands. and other family at bedside updated. Did drop hemoglobin to 6.7 so now being transfused. Remainder of the review is negative. Objective Vital Signs - 12hr 10/04/16 10/04/16 10/04/16 23:15 23:24 23:31 Temperature Pulse Rate 108 H 119 H 116 H Respiratory 16 26 H Rate Blood Pressure 120/77 112/88 105/78 O2 Sat by Pulse 100 100 100 Oximetry 10/04/16 10/04/16 10/05/16 23:35 23:45 00:00 Temperature 97.7 F Pulse Rate 113 H 121 H Respiratory 25 H 24 Rate Blood Pressure 119/80 130/76 O2 Sat by Pulse 100 100 Oximetry 10/05/16 10/05/16 10/05/16 00:15 00:30 00:45 Temperature Pulse Rate 128 H 121 H 119 H Respiratory 31 H 24 24 Rate Blood Pressure 130/76 118/78 121/75 O2 Sat by Pulse 95 96 96 Oximetry 10/05/16 10/05/16 10/05/16 01:00 01:15 01:30 Temperature Pulse Rate 142 H 142 H 137 H Respiratory 11 L 12 12 Rate Blood Pressure 121/85 109/68 109/69 O2 Sat by Pulse 98 97 Oximetry 10/05/16 10/05/16 10/05/16 01:45 02:00 02:01 Temperature Pulse Rate 135 H 133 H 133 H Respiratory 12 12 12 Rate Blood Pressure 109/69 117/74 117/74 O2 Sat by Pulse 98 97 Oximetry 10/05/16 10/05/16 10/05/16 02:15 02:30 02:45 Temperature Pulse Rate 133 H 130 H 130 H Respiratory 12 12 12 Rate Blood Pressure 117/75 120/71 113/64 O2 Sat by Pulse 96 96 Oximetry 10/05/16 10/05/16 10/05/16 03:00 03:15 03:30 Temperature Pulse Rate 128 H 128 H 126 H Respiratory 12 12 12 Rate Blood Pressure 111/71 112/74 109/73 O2 Sat by Pulse 97 98 Oximetry 10/05/16 10/05/16 10/05/16 03:45 04:00 04:15 Temperature 98.4 F Pulse Rate 126 H 127 H 119 H Respiratory 12 12 10 L Rate Blood Pressure 117/69 105/70 105/70 O2 Sat by Pulse 97 Oximetry 10/05/16 10/05/16 10/05/16 04:30 04:45 05:00 Temperature Pulse Rate 121 H 122 H 119 H Respiratory 12 12 12 Rate Blood Pressure 100/70 103/69 110/71 O2 Sat by Pulse 97 99 Oximetry 10/05/16 10/05/16 10/05/16 05:11 05:15 05:30 Temperature Pulse Rate 120 H 121 H 120 H Respiratory 12 12 12 Rate Blood Pressure 110/71 115/72 120/69 O2 Sat by Pulse 91 90 Oximetry 10/05/16 10/05/16 10/05/16 05:45 06:00 06:15 Temperature Pulse Rate 119 H 118 H 118 H Respiratory 16 16 16 Rate Blood Pressure 118/77 97/67 110/74 O2 Sat by Pulse 100 100 100 Oximetry 10/05/16 10/05/16 10/05/16 06:16 06:30 06:45 Temperature Pulse Rate 116 H 121 H 118 H Respiratory 18 18 18 Rate Blood Pressure 110/74 115/77 118/82 O2 Sat by Pulse 100 100 100 Oximetry 10/05/16 10/05/16 10/05/16 07:00 07:15 07:26 Temperature Pulse Rate 119 H 120 H 119 H Respiratory 19 19 Rate Blood Pressure 102/76 93/72 93/72 O2 Sat by Pulse 100 100 Oximetry 10/05/16 10/05/16 10/05/16 07:30 07:43 07:45 Temperature 98.2 F Pulse Rate 119 H 122 H Respiratory 19 19 Rate Blood Pressure 107/74 99/69 O2 Sat by Pulse 100 100 Oximetry 10/05/16 10/05/16 10/05/16 08:00 08:15 08:28 Temperature 98.2 F 98 F Pulse Rate 117 H 116 H 117 H Respiratory 18 18 18 Rate Blood Pressure 101/69 103/70 103/70 O2 Sat by Pulse 100 100 100 Oximetry 10/05/16 10/05/16 10/05/16 08:30 08:38 08:45 Temperature Pulse Rate 115 H 114 H 115 H Respiratory 19 18 Rate Blood Pressure 111/66 111/66 110/75 O2 Sat by Pulse 96 100 100 Oximetry 10/05/16 10/05/16 10/05/16 08:58 09:00 09:15 Temperature 98.1 F Pulse Rate 114 H 115 H 114 H Respiratory 18 18 18 Rate Blood Pressure 110/75 108/76 104/72 O2 Sat by Pulse 100 100 100 Oximetry 10/05/16 10/05/16 10/05/16 09:28 09:30 09:45 Temperature 98 F Pulse Rate 112 H 117 H 117 H Respiratory 18 18 18 Rate Blood Pressure 104/72 100/70 105/68 O2 Sat by Pulse 100 100 100 Oximetry 10/05/16 10/05/16 10/05/16 09:58 10:00 10:15 Temperature 98.4 F Pulse Rate 115 H 116 H 118 H Respiratory 18 18 18 Rate Blood Pressure 100/70 105/69 101/64 O2 Sat by Pulse 100 100 100 Oximetry 10/05/16 10:30 Temperature 98.3 F Pulse Rate 116 H Respiratory 18 Rate Blood Pressure 100/64 O2 Sat by Pulse 100 Oximetry Constitutional: no acute distress, other (sedated but easily aroused) Eyes: non-icteric ENT: oropharynx moist, other (orally intubated, not on continuous sedation) Neck: supple, no lymphadenopathy Ascultation: Bilateral: clear Percussion: Bilateral: not dull Cardiovascular: other (sinus tachycardia) Gastrointestinal: other (post surgical changes) Integumentary: normal Extremities: no cyanosis, no edema Neurologic: normal mental status, non-focal exam Psychiatric: mood appropriate CBC and BMP: 10/05/16 04:00 10/05/16 04:00 ABG, PT/INR, D-dimer: ABG POC ABG pH 7.378 (7.35-7.45) 10/05/16 08:38 POC ABG pCO2 41.1 (35-45) 10/05/16 08:38 POC ABG pO2 149 (80-105) H 10/05/16 08:38 POC ABG HCO3 24.2 10/05/16 08:38 POC ABG Total CO2 25 10/05/16 08:38 POC ABG O2 Sat 99 10/05/16 08:38 PT/INR, D-dimer PT 27.7 Sec. (12.2-14.9) H 10/04/16 15:20 INR 2.57 (0.87-1.13) H 10/04/16 15:20 Abnormal lab findings: Abnormal Labs 10/02/16 10/03/16 10/03/16 06:26 07:33 08:19 WBC 17.8 H RBC Hgb Hct RDW 15.5 H Plt Count Seg Neuts % (Manual) 28.0 L Lymphocytes % (Manual) 6.0 L Monocytes % (Manual) 12.0 H Lymphocytes # (Manual) 1.1 L Monocytes # (Manual) 2.1 H PT INR APTT Heparin Anti-Xa Level POC ABG pH POC ABG pCO2 POC ABG pO2 Sodium Potassium 5.5 H D Chloride Carbon Dioxide 17 L BUN 56 H Creatinine 3.1 H D Glucose Lactic Acid 3.2 H* Calcium AST Total Protein Albumin Urine Creatinine Crossmatch 10/03/16 10/03/16 10/03/16 08:19 14:25 17:45 WBC RBC 2.27 L Hgb 6.8 L D Hct 21.3 L D RDW 15.7 H Plt Count 122 L Seg Neuts % (Manual) Lymphocytes % (Manual) 9.0 L Monocytes % (Manual) Lymphocytes # (Manual) 0.9 L Monocytes # (Manual) PT INR APTT Heparin Anti-Xa Level POC ABG pH POC ABG pCO2 POC ABG pO2 Sodium Potassium Chloride Carbon Dioxide BUN Creatinine Glucose Lactic Acid 5.7 H* Calcium AST Total Protein Albumin Urine Creatinine Crossmatch See Detail 10/03/16 10/03/16 10/03/16 17:45 17:45 18:34 WBC RBC Hgb Hct RDW Plt Count Seg Neuts % (Manual) Lymphocytes % (Manual) Monocytes % (Manual) Lymphocytes # (Manual) Monocytes # (Manual) PT 32.1 H INR 3.09 H APTT 121.1 H* Heparin Anti-Xa Level POC ABG pH 7.058 L POC ABG pCO2 46.4 H POC ABG pO2 124 H Sodium 147 H Potassium Chloride 117.4 H Carbon Dioxide 16 L BUN 54 H Creatinine 2.8 H Glucose Lactic Acid Calcium 5.3 L* D AST 78 H Total Protein 2.9 L D Albumin 1.4 L Urine Creatinine Crossmatch 10/03/16 10/03/16 10/04/16 20:56 23:04 03:58 WBC RBC Hgb Hct RDW Plt Count Seg Neuts % (Manual) Lymphocytes % (Manual) Monocytes % (Manual) Lymphocytes # (Manual) Monocytes # (Manual) PT INR APTT Heparin Anti-Xa Level POC ABG pH POC ABG pCO2 27.3 L POC ABG pO2 211 H Sodium Potassium Chloride Carbon Dioxide BUN Creatinine Glucose Lactic Acid 3.1 H* Calcium AST Total Protein Albumin Urine Creatinine 53.3 H Crossmatch 10/04/16 10/04/16 10/04/16 04:19 04:19 04:19 WBC RBC 2.80 L Hgb 8.0 L Hct 24.4 L RDW 16.3 H Plt Count 77 L Seg Neuts % (Manual) Lymphocytes % (Manual) Monocytes % (Manual) Lymphocytes # (Manual) Monocytes # (Manual) PT INR APTT Heparin Anti-Xa Level POC ABG pH POC ABG pCO2 POC ABG pO2 Sodium 147 H Potassium Chloride 115.2 H Carbon Dioxide 20 L BUN 45 H Creatinine 2.2 H Glucose 150 H Lactic Acid 3.5 H* Calcium 5.7 L* AST Total Protein Albumin Urine Creatinine Crossmatch 10/04/16 10/04/16 10/04/16 04:54 10:55 15:20 WBC RBC Hgb 9.5 L Hct 28.3 L RDW Plt Count 66 L Seg Neuts % (Manual) Lymphocytes % (Manual) Monocytes % (Manual) Lymphocytes # (Manual) Monocytes # (Manual) PT INR APTT Heparin Anti-Xa Level POC ABG pH 7.489 H 7.454 H POC ABG pCO2 17.6 L 27.9 L POC ABG pO2 118 H Sodium Potassium Chloride Carbon Dioxide BUN Creatinine Glucose Lactic Acid Calcium AST Total Protein Albumin Urine Creatinine Crossmatch 10/04/16 10/04/16 10/04/16 15:20 16:19 19:55 WBC 12.1 H RBC 2.92 L Hgb 8.4 L Hct 25.5 L RDW 16.3 H Plt Count 66 L Seg Neuts % (Manual) Lymphocytes % (Manual) Monocytes % (Manual) Lymphocytes # (Manual) Monocytes # (Manual) PT 27.7 H INR 2.57 H APTT 111.9 H* Heparin Anti-Xa Level POC ABG pH 7.247 L POC ABG pCO2 46.2 H POC ABG pO2 64 L Sodium Potassium Chloride Carbon Dioxide BUN Creatinine Glucose Lactic Acid Calcium AST Total Protein Albumin Urine Creatinine Crossmatch 10/04/16 10/04/16 10/05/16 22:26 Unknown 00:34 WBC RBC Hgb Hct RDW Plt Count Seg Neuts % (Manual) Lymphocytes % (Manual) Monocytes % (Manual) Lymphocytes # (Manual) Monocytes # (Manual) PT INR APTT Heparin Anti-Xa Level 0.24 L POC ABG pH POC ABG pCO2 32.1 L POC ABG pO2 62 L Sodium Potassium Chloride Carbon Dioxide BUN Creatinine Glucose Lactic Acid 2.9 H* Calcium AST Total Protein Albumin Urine Creatinine Crossmatch 10/05/16 10/05/16 10/05/16 04:00 04:00 05:35 WBC 16.8 H RBC 2.32 L Hgb 6.7 L Hct 20.2 L RDW 16.7 H Plt Count 87 L Seg Neuts % (Manual) Lymphocytes % (Manual) Monocytes % (Manual) Lymphocytes # (Manual) Monocytes # (Manual) PT INR APTT Heparin Anti-Xa Level POC ABG pH 7.223 L POC ABG pCO2 59.9 H POC ABG pO2 68 L Sodium 151 H Potassium Chloride 115.8 H Carbon Dioxide BUN 29 H Creatinine 1.7 H Glucose 142 H Lactic Acid Calcium 6.4 L AST Total Protein Albumin Urine Creatinine Crossmatch 10/05/16 08:38 WBC RBC Hgb Hct RDW Plt Count Seg Neuts % (Manual) Lymphocytes % (Manual) Monocytes % (Manual) Lymphocytes # (Manual) Monocytes # (Manual) PT INR APTT Heparin Anti-Xa Level POC ABG pH POC ABG pCO2 POC ABG pO2 149 H Sodium Potassium Chloride Carbon Dioxide BUN Creatinine Glucose Lactic Acid Calcium AST Total Protein Albumin Urine Creatinine Crossmatch
[2016-10-05] MEDS ORDERED: D5W 1,000 ML IV SCH ×2 (12:00)
[2016-10-05 12:41] LABS: Hemoglobin 10.7 gm/dl (10.1-14.3)
[2016-10-05] MEDS ORDERED: NACL 0.9% 1000 ML 1,000 ML ONE (13:24)
--- NOTE | 2016-10-05 14:09 | Post Anesthesia Evaluation ---
- Post Anesthesia Evaluation Patient Participated: No Airway Patent: Yes Stable Respiratory Function: Yes Temp > 96.8F: Yes Pain Manageable: Yes Adequeate Hydration: Yes Anesthesia Complications: No Other Comments: Pt intubated. For direct transfer back to ICU. Will transport with o2, ambu and transport monitor.
--- NOTE | 2016-10-05 14:11 | Event Note ---
Date: 10/05/16 Talked to the patient's family about her condition. Explained to them that we were going to take her back to the operating room to assess small bowel viability. But if we would have to take all the remainder of bowel and then we wouldn't do that because that's unsurvivable. Anyways I would close her abdomen. Also explained to them that the prognosis would be very bad with certain . The symptoms understand and they requested for me to proceed with the plan.
--- NOTE | 2016-10-05 14:11 | Progress Note ---
Assessment and Plan Assessment and plan: Patient is a 55 year female with hx of peripheral vascular disease, s/p right AKA and Ureteral stent which was planned for exchange on and patient had been discontinued from her chronic anticoauglation for the planned exachanged. 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 D/W surgery, Vascular, CCM is following DVT and GI prophylaxis Prognosis guarded but grim This is very complex medical decision with hct dropping with blood from ostomy and thrombocytopenia, iv heparin needed. The high probability of a clinically significant, sudden or life threatening deterioration of the [GI, renal] system(s) required my full and direct attention , intervention and personal management. The aggregate critical care time was [32 ] minutes. This time is in addition to time spent performing reported procedures but includes the following: [x] Data Review and interpretation [x] Patient assessment and monitoring of vital signs [x] Documentation [x] Medication orders and management History Interval history: Patient seen and examined. Follow up on SMA thrombus. Patient still intubated. Imaging, old records, testing, labs, nursing notes reviewed. Hospitalist Physical - Physical exam Narrative exam: GEN: toxic severely ill, intubated HEENT: ET tube in place CVS: Regular tachycardic, NORMAL S1S2 LUNGS/CHEST: NORMAL CHEST EXPANSION B, GOOD AIR ENTRY B ABD: Distended, surgical scar, pbs - Constitutional Vitals: Temp Pulse Resp BP Pulse Ox 98.5 F 113 H 18 121/78 100 10/05/16 11:52 10/05/16 12:30 10/05/16 12:30 10/05/16 12:30 10/05/16 12:30 General appearance: Present: severe distress (severe abdominal pain) Results - Labs CBC & Chem 7: 10/05/16 12:30 10/05/16 04:00 Labs: Laboratory Last Values WBC 16.8 K/mm3 (4.5-11.0) H 10/05/16 04:00 RBC 2.32 M/mm3 (3.65-5.03) L 10/05/16 04:00 Hgb 10.7 gm/dl (10.1-14.3) D 10/05/16 12:30 Hct 31.0 % (30.3-42.9) D 10/05/16 12:30 MCV 87 fl (79-97) 10/05/16 04:00 MCH 29 pg (28-32) 10/05/16 04:00 MCHC 33 % (30-34) 10/05/16 04:00 RDW 16.7 % (13.2-15.2) H 10/05/16 04:00 Plt Count 87 K/mm3 (140-440) L 10/05/16 04:00 Add Manual Diff Complete 10/03/16 17:45 Total Counted 100 10/03/16 17:45 Seg Neuts % (Manual) 41.0 % (40.0-70.0) 10/03/16 17:45 Band Neutrophils % 42.0 % 10/03/16 17:45 Lymphocytes % (Manual) 9.0 % (13.4-35.0) L 10/03/16 17:45 Reactive Lymphs % (Man) 0 % 10/03/16 17:45 Monocytes % (Manual) 4.0 % (0.0-7.3) 10/03/16 17:45 Eosinophils % (Manual) 1.0 % (0.0-4.3) 10/03/16 17:45 Basophils % (Manual) 0 % (0.0-1.8) 10/03/16 17:45 Metamyelocytes % 2.0 % 10/03/16 17:45 Myelocytes % 1.0 % 10/03/16 17:45 Promyelocytes % 0 % 10/03/16 17:45 Blast Cells % 0 % 10/03/16 17:45 Nucleated RBC % Not Reportable 10/03/16 17:45 Seg Neutrophils # Man 4.2 K/mm3 (1.8-7.7) 10/03/16 17:45 Band Neutrophils # 4.3 K/mm3 10/03/16 17:45 Lymphocytes # (Manual) 0.9 K/mm3 (1.2-5.4) L 10/03/16 17:45 Abs React Lymphs (Man) 0.0 K/mm3 10/03/16 17:45 Monocytes # (Manual) 0.4 K/mm3 (0.0-0.8) 10/03/16 17:45 Eosinophils # (Manual) 0.1 K/mm3 (0.0-0.4) 10/03/16 17:45 Basophils # (Manual) 0.0 K/mm3 (0.0-0.1) 10/03/16 17:45 Metamyelocytes # 0.2 K/mm3 10/03/16 17:45 Myelocytes # 0.1 K/mm3 10/03/16 17:45 Promyelocytes # 0.0 K/mm3 10/03/16 17:45 Blast Cells # 0.0 K/mm3 10/03/16 17:45 WBC Morphology Not Reportable 10/03/16 17:45 Hypersegmented Neuts Not Reportable 10/03/16 17:45 Hyposegmented Neuts Not Reportable 10/03/16 17:45 Hypogranular Neuts Not Reportable 10/03/16 17:45 Smudge Cells Not Reportable 10/03/16 17:45 Toxic Granulation Not Reportable 10/03/16 17:45 Toxic Vacuolation Not Reportable 10/03/16 17:45 Dohle Bodies Not Reportable 10/03/16 17:45 Pelger-Huet Anomaly Not Reportable 10/03/16 17:45 Len Rods Not Reportable 10/03/16 17:45 Platelet Estimate Appears decreased 10/03/16 17:45 Clumped Platelets Not Reportable 10/03/16 17:45 Plt Clumps, EDTA Not Reportable 10/03/16 17:45 Large Platelets Not Reportable 10/03/16 17:45 Giant Platelets Not Reportable 10/03/16 17:45 Platelet Satelliting Not Reportable 10/03/16 17:45 Plt Morphology Comment Not Reportable 10/03/16 17:45 RBC Morphology Not Reportable 10/03/16 17:45 Dimorphic RBCs Not Reportable 10/03/16 17:45 Polychromasia Not Reportable 10/03/16 17:45 Hypochromasia Not Reportable 10/03/16 17:45 Poikilocytosis 1+ 10/03/16 17:45 Anisocytosis 1+ 10/03/16 17:45 Microcytosis Not Reportable 10/03/16 17:45 Macrocytosis Not Reportable 10/03/16 17:45 Spherocytes Not Reportable 10/03/16 17:45 Pappenheimer Bodies Not Reportable 10/03/16 17:45 Sickle Cells Not Reportable 10/03/16 17:45 Target Cells Not Reportable 10/03/16 17:45 Tear Drop Cells Not Reportable 10/03/16 17:45 Ovalocytes Not Reportable 10/03/16 17:45 Helmet Cells Not Reportable 10/03/16 17:45 Hitchcock-Hollenberg Bodies Not Reportable 10/03/16 17:45 Delta Rings Not Reportable 10/03/16 17:45 Jv Cells Not Reportable 10/03/16 17:45 Bite Cells Not Reportable 10/03/16 17:45 Crenated Cell Not Reportable 10/03/16 17:45 Elliptocytes Not Reportable 10/03/16 17:45 Acanthocytes (Spur) Not Reportable 10/03/16 17:45 Rouleaux Not Reportable 10/03/16 17:45 Hemoglobin C Crystals Not Reportable 10/03/16 17:45 Schistocytes Not Reportable 10/03/16 17:45 Malaria parasites Not Reportable 10/03/16 17:45 Jackson Bodies Not Reportable 10/03/16 17:45 Hem Pathologist Commnt No 10/03/16 17:45 PT 27.7 Sec. (12.2-14.9) H 10/04/16 15:20 INR 2.57 (0.87-1.13) H 10/04/16 15:20 APTT 111.9 Sec. (24.2-36.6) H* 10/04/16 15:20 Heparin Anti-Xa Level 0.33 U.I./ml (0.3-0.7) 10/05/16 12:30 POC ABG pH 7.378 (7.35-7.45) 10/05/16 08:38 POC ABG pCO2 41.1 (35-45) 10/05/16 08:38 POC ABG pO2 149 (80-105) H 10/05/16 08:38 POC ABG HCO3 24.2 10/05/16 08:38 POC ABG Total CO2 25 10/05/16 08:38 POC ABG O2 Sat 99 10/05/16 08:38 POC ABG Base Excess -1 10/05/16 08:38 FiO2 60 % 10/05/16 08:38 Sodium 151 mmol/L (137-145) H 10/05/16 04:00 Potassium 4.7 mmol/L (3.6-5.0) 10/05/16 04:00 Chloride 115.8 mmol/L (98-107) H 10/05/16 04:00 Carbon Dioxide 25 mmol/L (22-30) 10/05/16 04:00 Anion Gap 15 mmol/L 10/05/16 04:00 BUN 29 mg/dL (7-17) H 10/05/16 04:00 Creatinine 1.7 mg/dL (0.7-1.2) H 10/05/16 04:00 Estimated GFR 38 ml/min 10/05/16 04:00 BUN/Creatinine Ratio 17.05 % 10/05/16 04:00 Glucose 142 mg/dL (65-100) H 10/05/16 04:00 Hemoglobin A1c 5.8 % (4-6) 10/02/16 01:58 Lactic Acid 1.8 mmol/L (0.7-2.0) 10/05/16 04:00 Calcium 6.4 mg/dL (8.4-10.2) L 10/05/16 04:00 Total Bilirubin 0.2 mg/dL (0.1-1.2) 10/03/16 17:45 AST 78 units/L (5-40) H 10/03/16 17:45 ALT 35 units/L (7-56) 10/03/16 17:45 Alkaline Phosphatase 55 units/L (35-129) 10/03/16 17:45 Troponin T < 0.010 ng/mL (0.00-0.029) 10/02/16 06:26 Total Protein 2.9 g/dL (6.3-8.2) L D 10/03/16 17:45 Albumin 1.4 g/dL (3.9-5) L 10/03/16 17:45 Albumin/Globulin Ratio 0.9 % 10/03/16 17:45 Lipase 32 units/L (13-60) 10/02/16 01:03 Urine Color Yellow (Yellow) 10/02/16 01:50 Urine Turbidity Clear (Clear) 10/02/16 01:50 Urine pH 6.0 (5.0-7.0) 10/02/16 01:50 Ur Specific [place] 1.011 (1.003-1.030) 10/02/16 01:50 Urine Protein 30 mg/dl mg/dL (Negative) 10/02/16 01:50 Urine Glucose (UA) >=500 mg/dL (Negative) 10/02/16 01:50 Urine Ketones Tr mg/dL (Negative) 10/02/16 01:50 Urine Blood Mod (Negative) 10/02/16 01:50 Urine Nitrite Neg (Negative) 10/02/16 01:50 Urine Bilirubin Neg (Negative) 10/02/16 01:50 Urine Urobilinogen < 2.0 mg/dL (<2.0) 10/02/16 01:50 Ur Leukocyte Esterase Lg (Negative) 10/02/16 01:50 Urine WBC (Auto) 19.0 /HPF (0.0-6.0) H 10/02/16 01:50 Urine RBC (Auto) 15.0 /HPF (0.0-6.0) 10/02/16 01:50 U Epithel Cells (Auto) 10.0 /HPF (0-13.0) 10/02/16 01:50 Urine Bacteria (Auto) 1+ /HPF (Negative) 10/02/16 01:50 Urine Mucus Few /HPF 10/02/16 01:50 Urine Creatinine 53.3 mg/dL (0.1-20.0) H 10/04/16 03:58 Urine Sodium 96 mEq/L 10/04/16 03:58 Blood Type A POSITIVE 10/03/16 14:25 Antibody Screen Negative 10/03/16 14:25 Crossmatch See Detail 10/03/16 14:25
--- NOTE | 2016-10-05 14:22 | Operative Report ---
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 Postoperative diagnosis: Same. Operation: Second look exploratory laparotomy and closure of abdominal cavity. Surgeon: Marcio Messer M.D. Findings: Gangrenous bowel from the ligament of Treitz all the way down to where the distal ileostomy had been performed. could not feel a pulse in the superior mesentery artery. Procedure: Under general anesthesia the patient's abdomen was prepped and draped in the usual sterile manner. The piece of plastic sutured to the skin that was used to help keep the viscera covered was removed. The cavity was entered with findings of gangrenous bowel from just the take off of the jejunum at the ligament of Treitz to the terminal ileostomy that have been placed yesterday. The stomach was viable and healthy as well as the distal colon from the splenic flexure down to the rectosigmoid. There was a moderate amount of bloody fluid throughout the abdominal cavity which was suctioned. We checked for a pulse in the superior mesenteric artery and there was none. So at this time we decided to close the abdominal cavity as previously discussed with the family. We approximated the fascia with a running suture of looped #1 PDS. The skin edges were approximated with skin maria. Patient was transferred to the intensive care unit. Estimated blood loss: Negligible Intraoperative fluid replacement: Crystalloids Condition: Poor. Prognosis: Poor.
[2016-10-05] MEDS: D5W 1,000 ML IV SCH (16:00)
[2016-10-05 17:46] LABS: ISTAT Base Excess 0; ISTAT HCO3 25.1; ISTAT PCO2 45.7 (35-45); ISTAT PH 7.348 (7.35-7.45); ISTAT PO2 91 (80-105); ISTAT SO2 97; ISTAT TCO2 27
[2016-10-05 19:05] LABS: Hematocrit 31.9 % (30.3-42.9); Hemoglobin 11.1 gm/dl (10.1-14.3)
[2016-10-06 00:35] LABS: Hematocrit 31.5 % (30.3-42.9)
[2016-10-06] MEDS: HEPARIN/ 0.45% NACL-25,000 UNIT/500 ML 500 ML IV SCH (02:58)
[2016-10-06] MEDS: D5W 1,000 ML IV SCH ×2 (02:59→22:15)
[2016-10-06 04:59] LABS: ISTAT Base Excess 1; ISTAT HCO3 24.7; ISTAT PCO2 36.5 (35-45); ISTAT PH 7.439 (7.35-7.45); ISTAT PO2 151 (80-105); ISTAT SO2 99; ISTAT TCO2 26
[2016-10-06] MEDS: FLAGYL 500 MG/100 ML 100 ML IV SCH ×3 (05:47→22:11)
[2016-10-06 06:33] LABS: Hematocrit 33.1 % (30.3-42.9); Mean Corpuscular HGB Conc 33 % (30-34); Mean Corpuscular Hemoglobin 29 pg (28-32); Mean Corpuscular Volume 87 fl (79-97); Red Blood Count 3.81 M/mm3 (3.65-5.03); Red Cell Distribution Width 15.6 % (13.2-15.2); White Blood Count 10.5 K/mm3 (4.5-11.0)
[2016-10-06 06:42] LABS: Platelet Count 76 K/mm3 (140-440)
[2016-10-06 06:45] LABS: BUN/Creatinine Ratio 15.33; Blood Urea Nitrogen 23 mg/dL (7-17); Calcium 7.6 mg/dL (8.4-10.2); Carbon Dioxide 24 mmol/L (22-30); Chloride 109.4 mmol/L (98-107); Glucose 104 mg/dL (65-100); Potassium 3.9 mmol/L (3.6-5.0); Sodium 144 mmol/L (137-145)
--- NOTE | 2016-10-06 09:44 | Progress Note ---
Assessment and Plan - Patient Problems (1) ELLIOTT (acute kidney injury) Current Visit: Yes Status: Acute Plan to address problem: Acute Kidney Injury in the setting of hypotension, shock and IV contrast. Renal function continue to improve. Continue IV fluids. (2) Lactic acidosis Current Visit: Yes Status: Acute Plan to address problem: Improved. (3) Shock Current Visit: Yes Status: Acute Plan to address problem: Patient is hemodynamically better. Off pressors. (4) Superior mesenteric artery thrombosis Current Visit: Yes Status: Acute Plan to address problem: Overall prognosis is poor. (5) Anemia Current Visit: Yes Status: Acute Subjective Date of service: 10/06/16 Interval history: Events yesterday noted. Objective - Vital Signs Vital signs: Vital Signs - 12hr 10/05/16 10/05/16 10/05/16 21:45 22:00 22:13 Temperature Pulse Rate 107 H 107 H 102 H Respiratory 20 18 18 Rate Blood Pressure 110/67 102/67 110/66 O2 Sat by Pulse 100 100 100 Oximetry 10/05/16 10/05/16 10/05/16 22:15 22:30 22:45 Temperature Pulse Rate 102 H 110 H 110 H Respiratory 18 18 19 Rate Blood Pressure 119/74 119/74 103/62 O2 Sat by Pulse 100 Oximetry 10/05/16 10/05/16 10/05/16 23:00 23:03 23:15 Temperature Pulse Rate 106 H 111 H 104 H Respiratory 19 19 19 Rate Blood Pressure 104/64 104/64 105/65 O2 Sat by Pulse 100 100 Oximetry 10/05/16 10/05/16 10/05/16 23:17 23:30 23:45 Temperature Pulse Rate 108 H 108 H 111 H Respiratory 19 18 Rate Blood Pressure 105/65 108/67 115/59 O2 Sat by Pulse 100 99 Oximetry 10/06/16 10/06/16 10/06/16 00:00 00:15 00:30 Temperature 98.8 F Pulse Rate 109 H 113 H 114 H Respiratory 18 19 19 Rate Blood Pressure 115/69 111/69 108/64 O2 Sat by Pulse 98 Oximetry 10/06/16 10/06/16 10/06/16 00:33 00:45 01:00 Temperature Pulse Rate 113 H 110 H 106 H Respiratory 20 19 19 Rate Blood Pressure 108/64 107/61 114/65 O2 Sat by Pulse 100 100 Oximetry 10/06/16 10/06/16 10/06/16 01:15 01:30 01:37 Temperature Pulse Rate 110 H 107 H 105 H Respiratory 20 19 20 Rate Blood Pressure 105/64 115/65 115/65 O2 Sat by Pulse 98 100 100 Oximetry 10/06/16 10/06/16 10/06/16 01:45 02:00 02:09 Temperature Pulse Rate 109 H 113 H 110 H Respiratory 19 19 19 Rate Blood Pressure 113/60 120/68 120/68 O2 Sat by Pulse 98 98 100 Oximetry 10/06/16 10/06/16 10/06/16 02:15 02:30 02:45 Temperature Pulse Rate 113 H 117 H 113 H Respiratory 19 19 20 Rate Blood Pressure 117/58 106/67 102/68 O2 Sat by Pulse 97 98 100 Oximetry 10/06/16 10/06/16 10/06/16 03:00 03:15 03:30 Temperature Pulse Rate 108 H 113 H 115 H Respiratory 19 19 21 Rate Blood Pressure 105/68 111/66 105/69 O2 Sat by Pulse 98 98 100 Oximetry 10/06/16 10/06/16 10/06/16 03:45 04:00 04:15 Temperature 98.6 F Pulse Rate 136 H 112 H 112 H Respiratory 22 22 21 Rate Blood Pressure 105/69 112/70 97/62 O2 Sat by Pulse 98 94 Oximetry 10/06/16 10/06/16 10/06/16 04:21 04:30 04:45 Temperature Pulse Rate 114 H 110 H 114 H Respiratory 21 20 19 Rate Blood Pressure 97/62 96/61 89/58 O2 Sat by Pulse 96 96 96 Oximetry 10/06/16 10/06/16 10/06/16 04:59 05:00 05:05 Temperature Pulse Rate 114 H 117 H 114 H Respiratory 19 19 19 Rate Blood Pressure 89/58 94/59 94/59 O2 Sat by Pulse 96 97 96 Oximetry 10/06/16 10/06/16 10/06/16 05:15 05:30 05:45 Temperature Pulse Rate 114 H 115 H 117 H Respiratory 19 20 19 Rate Blood Pressure 100/64 98/68 83/56 O2 Sat by Pulse 94 97 Oximetry 10/06/16 10/06/16 10/06/16 05:54 06:00 06:02 Temperature Pulse Rate 117 H 116 H 116 H Respiratory 19 18 20 Rate Blood Pressure 105/68 90/58 83/56 O2 Sat by Pulse 97 97 Oximetry 10/06/16 10/06/16 10/06/16 06:15 06:30 06:45 Temperature Pulse Rate 114 H 115 H 115 H Respiratory 19 19 20 Rate Blood Pressure 91/60 101/61 95/63 O2 Sat by Pulse 96 Oximetry 10/06/16 10/06/16 10/06/16 07:00 07:15 07:30 Temperature Pulse Rate 115 H 119 H 119 H Respiratory 19 19 20 Rate Blood Pressure 103/66 96/66 102/57 O2 Sat by Pulse 93 94 94 Oximetry 10/06/16 10/06/16 07:45 08:00 Temperature 98.2 F Pulse Rate 119 H 118 H Respiratory 20 19 Rate Blood Pressure 92/61 91/60 O2 Sat by Pulse 93 95 Oximetry - General Appearance General appearance: well-developed, sedated on ventilator, intubated EENT: PERRL, other (pupils constricted) Neck: supple Respiratory: Present: Other (coarse breath sounds) Cardiology: regular, S1S2, no murmurs Gastrointestinal: other (abdominal surgical dressing noted) Integumentary: no rash Neurologic: other (sedated) Musculoskeletal: other (no edema, right AKA) Psychiatric: other (sedated) - Lab 10/06/16 11:54 10/06/16 05:50 Most recent lab results Calcium 6.4 mg/dL (8.4-10.2) L 10/05/16 04:00 Urine Creatinine 53.3 mg/dL (0.1-20.0) H 10/04/16 03:58 Urine Sodium 96 mEq/L 10/04/16 03:58
--- NOTE | 2016-10-06 11:49 | Progress Note ---
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 Long discussion with and other family members at bedside. They are contemplating palliative measures which are very reasonable. Await their decision. CCT 31 minutes. Subjective Date of service: 10/06/16 Interval history: No acute events overnight. Reviewed Op note and spoke with surgery. Very poor prognosis. Not able to save any bowel. Closed and brought back to ICU. at bedside. Objective Vital Signs - 12hr 10/06/16 10/06/16 10/06/16 00:00 00:15 00:30 Temperature 98.8 F Pulse Rate 109 H 113 H 114 H Respiratory 18 19 19 Rate Blood Pressure 115/69 111/69 108/64 O2 Sat by Pulse 98 Oximetry 10/06/16 10/06/16 10/06/16 00:33 00:45 01:00 Temperature Pulse Rate 113 H 110 H 106 H Respiratory 20 19 19 Rate Blood Pressure 108/64 107/61 114/65 O2 Sat by Pulse 100 100 Oximetry 10/06/16 10/06/16 10/06/16 01:15 01:30 01:37 Temperature Pulse Rate 110 H 107 H 105 H Respiratory 20 19 20 Rate Blood Pressure 105/64 115/65 115/65 O2 Sat by Pulse 98 100 100 Oximetry 10/06/16 10/06/16 10/06/16 01:45 02:00 02:09 Temperature Pulse Rate 109 H 113 H 110 H Respiratory 19 19 19 Rate Blood Pressure 113/60 120/68 120/68 O2 Sat by Pulse 98 98 100 Oximetry 10/06/16 10/06/16 10/06/16 02:15 02:30 02:45 Temperature Pulse Rate 113 H 117 H 113 H Respiratory 19 19 20 Rate Blood Pressure 117/58 106/67 102/68 O2 Sat by Pulse 97 98 100 Oximetry 10/06/16 10/06/16 10/06/16 03:00 03:15 03:30 Temperature Pulse Rate 108 H 113 H 115 H Respiratory 19 19 21 Rate Blood Pressure 105/68 111/66 105/69 O2 Sat by Pulse 98 98 100 Oximetry 10/06/16 10/06/16 10/06/16 03:45 04:00 04:15 Temperature 98.6 F Pulse Rate 136 H 112 H 112 H Respiratory 22 22 21 Rate Blood Pressure 105/69 112/70 97/62 O2 Sat by Pulse 98 94 Oximetry 10/06/16 10/06/16 10/06/16 04:21 04:30 04:45 Temperature Pulse Rate 114 H 110 H 114 H Respiratory 21 20 19 Rate Blood Pressure 97/62 96/61 89/58 O2 Sat by Pulse 96 96 96 Oximetry 10/06/16 10/06/16 10/06/16 04:59 05:00 05:05 Temperature Pulse Rate 114 H 117 H 114 H Respiratory 19 19 19 Rate Blood Pressure 89/58 94/59 94/59 O2 Sat by Pulse 96 97 96 Oximetry 10/06/16 10/06/16 10/06/16 05:15 05:30 05:45 Temperature Pulse Rate 114 H 115 H 117 H Respiratory 19 20 19 Rate Blood Pressure 100/64 98/68 83/56 O2 Sat by Pulse 94 97 Oximetry 10/06/16 10/06/16 10/06/16 05:54 06:00 06:02 Temperature Pulse Rate 117 H 116 H 116 H Respiratory 19 18 20 Rate Blood Pressure 105/68 90/58 83/56 O2 Sat by Pulse 97 97 Oximetry 10/06/16 10/06/16 10/06/16 06:15 06:30 06:45 Temperature Pulse Rate 114 H 115 H 115 H Respiratory 19 19 20 Rate Blood Pressure 91/60 101/61 95/63 O2 Sat by Pulse 96 Oximetry 10/06/16 10/06/16 10/06/16 07:00 07:15 07:30 Temperature Pulse Rate 115 H 119 H 112 H Respiratory 19 19 20 Rate Blood Pressure 103/66 96/66 98/67 O2 Sat by Pulse 93 94 97 Oximetry 10/06/16 10/06/16 10/06/16 07:45 08:00 08:09 Temperature 98.2 F Pulse Rate 119 H 118 H 120 H Respiratory 20 19 20 Rate Blood Pressure 92/61 91/60 102/57 O2 Sat by Pulse 93 95 96 Oximetry 10/06/16 10/06/16 10/06/16 08:15 08:30 08:45 Temperature Pulse Rate 120 H 118 H Respiratory 19 19 Rate Blood Pressure 89/56 91/60 101/67 O2 Sat by Pulse 94 Oximetry 10/06/16 10/06/16 10/06/16 09:00 09:15 09:30 Temperature Pulse Rate 116 H 112 H Respiratory 22 20 Rate Blood Pressure 88/53 98/61 98/67 O2 Sat by Pulse 92 96 97 Oximetry 10/06/16 10/06/16 10/06/16 09:35 09:45 10:00 Temperature Pulse Rate 114 H 115 H 117 H Respiratory 20 20 21 Rate Blood Pressure 98/67 108/66 113/69 O2 Sat by Pulse 97 Oximetry 10/06/16 10/06/16 10/06/16 10:15 10:30 10:45 Temperature Pulse Rate 119 H 119 H 117 H Respiratory 23 22 20 Rate Blood Pressure 112/67 102/69 94/70 O2 Sat by Pulse 91 88 96 Oximetry 10/06/16 10/06/16 11:00 11:15 Temperature Pulse Rate 118 H 118 H Respiratory 20 21 Rate Blood Pressure 110/67 108/66 O2 Sat by Pulse 96 94 Oximetry Constitutional: no acute distress, other (sedated but easily aroused) Eyes: non-icteric ENT: oropharynx moist, other (orally intubated, not on continuous sedation) Neck: supple, no lymphadenopathy Ascultation: Bilateral: clear Percussion: Bilateral: not dull Cardiovascular: other (sinus tachycardia) Gastrointestinal: other (post surgical changes, open wound is now closed) Integumentary: normal Extremities: no cyanosis, no edema Neurologic: normal mental status, non-focal exam Psychiatric: mood appropriate CBC and BMP: 10/06/16 05:50 10/06/16 05:50 ABG, PT/INR, D-dimer: ABG POC ABG pH 7.439 (7.35-7.45) 10/06/16 03:44 POC ABG pCO2 36.5 (35-45) 10/06/16 03:44 POC ABG pO2 151 (80-105) H 10/06/16 03:44 POC ABG HCO3 24.7 10/06/16 03:44 POC ABG Total CO2 26 10/06/16 03:44 POC ABG O2 Sat 99 10/06/16 03:44 PT/INR, D-dimer PT 27.7 Sec. (12.2-14.9) H 10/04/16 15:20 INR 2.57 (0.87-1.13) H 10/04/16 15:20 Abnormal lab findings: Abnormal Labs 10/02/16 10/03/16 10/03/16 06:26 07:33 08:19 WBC 17.8 H RBC Hgb Hct RDW 15.5 H Plt Count Seg Neuts % (Manual) 28.0 L Lymphocytes % (Manual) 6.0 L Monocytes % (Manual) 12.0 H Lymphocytes # (Manual) 1.1 L Monocytes # (Manual) 2.1 H PT INR APTT Heparin Anti-Xa Level POC ABG pH POC ABG pCO2 POC ABG pO2 Sodium Potassium 5.5 H D Chloride Carbon Dioxide 17 L BUN 56 H Creatinine 3.1 H D Glucose Lactic Acid 3.2 H* Calcium AST Total Protein Albumin Urine Creatinine Crossmatch 10/03/16 10/03/16 10/03/16 08:19 14:25 17:45 WBC RBC 2.27 L Hgb 6.8 L D Hct 21.3 L D RDW 15.7 H Plt Count 122 L Seg Neuts % (Manual) Lymphocytes % (Manual) 9.0 L Monocytes % (Manual) Lymphocytes # (Manual) 0.9 L Monocytes # (Manual) PT INR APTT Heparin Anti-Xa Level POC ABG pH POC ABG pCO2 POC ABG pO2 Sodium Potassium Chloride Carbon Dioxide BUN Creatinine Glucose Lactic Acid 5.7 H* Calcium AST Total Protein Albumin Urine Creatinine Crossmatch See Detail 10/03/16 10/03/16 10/03/16 17:45 17:45 18:34 WBC RBC Hgb Hct RDW Plt Count Seg Neuts % (Manual) Lymphocytes % (Manual) Monocytes % (Manual) Lymphocytes # (Manual) Monocytes # (Manual) PT 32.1 H INR 3.09 H APTT 121.1 H* Heparin Anti-Xa Level POC ABG pH 7.058 L POC ABG pCO2 46.4 H POC ABG pO2 124 H Sodium 147 H Potassium Chloride 117.4 H Carbon Dioxide 16 L BUN 54 H Creatinine 2.8 H Glucose Lactic Acid Calcium 5.3 L* D AST 78 H Total Protein 2.9 L D Albumin 1.4 L Urine Creatinine Crossmatch 10/03/16 10/03/16 10/04/16 20:56 23:04 03:58 WBC RBC Hgb Hct RDW Plt Count Seg Neuts % (Manual) Lymphocytes % (Manual) Monocytes % (Manual) Lymphocytes # (Manual) Monocytes # (Manual) PT INR APTT Heparin Anti-Xa Level POC ABG pH POC ABG pCO2 27.3 L POC ABG pO2 211 H Sodium Potassium Chloride Carbon Dioxide BUN Creatinine Glucose Lactic Acid 3.1 H* Calcium AST Total Protein Albumin Urine Creatinine 53.3 H Crossmatch 10/04/16 10/04/16 10/04/16 04:19 04:19 04:19 WBC RBC 2.80 L Hgb 8.0 L Hct 24.4 L RDW 16.3 H Plt Count 77 L Seg Neuts % (Manual) Lymphocytes % (Manual) Monocytes % (Manual) Lymphocytes # (Manual) Monocytes # (Manual) PT INR APTT Heparin Anti-Xa Level POC ABG pH POC ABG pCO2 POC ABG pO2 Sodium 147 H Potassium Chloride 115.2 H Carbon Dioxide 20 L BUN 45 H Creatinine 2.2 H Glucose 150 H Lactic Acid 3.5 H* Calcium 5.7 L* AST Total Protein Albumin Urine Creatinine Crossmatch 10/04/16 10/04/16 10/04/16 04:54 10:55 15:20 WBC RBC Hgb 9.5 L Hct 28.3 L RDW Plt Count 66 L Seg Neuts % (Manual) Lymphocytes % (Manual) Monocytes % (Manual) Lymphocytes # (Manual) Monocytes # (Manual) PT INR APTT Heparin Anti-Xa Level POC ABG pH 7.489 H 7.454 H POC ABG pCO2 17.6 L 27.9 L POC ABG pO2 118 H Sodium Potassium Chloride Carbon Dioxide BUN Creatinine Glucose Lactic Acid Calcium AST Total Protein Albumin Urine Creatinine Crossmatch 10/04/16 10/04/16 10/04/16 15:20 16:19 19:55 WBC 12.1 H RBC 2.92 L Hgb 8.4 L Hct 25.5 L RDW 16.3 H Plt Count 66 L Seg Neuts % (Manual) Lymphocytes % (Manual) Monocytes % (Manual) Lymphocytes # (Manual) Monocytes # (Manual) PT 27.7 H INR 2.57 H APTT 111.9 H* Heparin Anti-Xa Level POC ABG pH 7.247 L POC ABG pCO2 46.2 H POC ABG pO2 64 L Sodium Potassium Chloride Carbon Dioxide BUN Creatinine Glucose Lactic Acid Calcium AST Total Protein Albumin Urine Creatinine Crossmatch 10/04/16 10/04/16 10/05/16 22:26 Unknown 00:34 WBC RBC Hgb Hct RDW Plt Count Seg Neuts % (Manual) Lymphocytes % (Manual) Monocytes % (Manual) Lymphocytes # (Manual) Monocytes # (Manual) PT INR APTT Heparin Anti-Xa Level 0.24 L POC ABG pH POC ABG pCO2 32.1 L POC ABG pO2 62 L Sodium Potassium Chloride Carbon Dioxide BUN Creatinine Glucose Lactic Acid 2.9 H* Calcium AST Total Protein Albumin Urine Creatinine Crossmatch 10/05/16 10/05/16 10/05/16 04:00 04:00 05:35 WBC 16.8 H RBC 2.32 L Hgb 6.7 L Hct 20.2 L RDW 16.7 H Plt Count 87 L Seg Neuts % (Manual) Lymphocytes % (Manual) Monocytes % (Manual) Lymphocytes # (Manual) Monocytes # (Manual) PT INR APTT Heparin Anti-Xa Level POC ABG pH 7.223 L POC ABG pCO2 59.9 H POC ABG pO2 68 L Sodium 151 H Potassium Chloride 115.8 H Carbon Dioxide BUN 29 H Creatinine 1.7 H Glucose 142 H Lactic Acid Calcium 6.4 L AST Total Protein Albumin Urine Creatinine Crossmatch 10/05/16 10/05/16 10/06/16 08:38 17:05 03:44 WBC RBC Hgb Hct RDW Plt Count Seg Neuts % (Manual) Lymphocytes % (Manual) Monocytes % (Manual) Lymphocytes # (Manual) Monocytes # (Manual) PT INR APTT Heparin Anti-Xa Level POC ABG pH 7.348 L POC ABG pCO2 45.7 H POC ABG pO2 149 H 151 H Sodium Potassium Chloride Carbon Dioxide BUN Creatinine Glucose Lactic Acid Calcium AST Total Protein Albumin Urine Creatinine Crossmatch 10/06/16 10/06/16 05:50 05:50 WBC RBC Hgb Hct RDW 15.6 H Plt Count 76 L Seg Neuts % (Manual) Lymphocytes % (Manual) Monocytes % (Manual) Lymphocytes # (Manual) Monocytes # (Manual) PT INR APTT Heparin Anti-Xa Level POC ABG pH POC ABG pCO2 POC ABG pO2 Sodium Potassium Chloride 109.4 H Carbon Dioxide BUN 23 H Creatinine 1.5 H Glucose 104 H Lactic Acid Calcium 7.6 L D AST Total Protein Albumin Urine Creatinine Crossmatch
[2016-10-06 12:33] LABS: Hematocrit 32.7 % (30.3-42.9)
--- NOTE | 2016-10-06 13:17 | Progress Note ---
Assessment and Plan Assessment and plan: Patient is a 55 year female with hx of peripheral vascular disease, s/p right AKA and Ureteral stent which was planned for exchange on and patient had been discontinued from her chronic anticoauglation for the planned exachanged. 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 Follow up on SMA thrombus. Patient still intubated. Imaging, old records, testing, labs, nursing notes reviewed. Hospitalist Physical - Physical exam Narrative exam: GEN: toxic severely ill, intubated and sedated HEENT: ET tube in place CVS: Regular tachycardic, NORMAL S1S2 LUNGS/CHEST: NORMAL CHEST EXPANSION B, GOOD AIR ENTRY B ABD: Distended, surgical scar, pbs, ostomy - Constitutional Vitals: Temp Pulse Resp BP Pulse Ox 98.2 F 118 H 21 108/66 94 10/06/16 08:00 10/06/16 11:15 10/06/16 11:15 10/06/16 11:15 10/06/16 11:15 General appearance: Present: severe distress (severe abdominal pain) Results - Labs CBC & Chem 7: 10/06/16 11:54 10/06/16 05:50 Labs: Laboratory Last Values WBC 10.5 K/mm3 (4.5-11.0) 10/06/16 05:50 RBC 3.81 M/mm3 (3.65-5.03) 10/06/16 05:50 Hgb 11.0 gm/dl (10.1-14.3) 10/06/16 11:54 Hct 32.7 % (30.3-42.9) 10/06/16 11:54 MCV 87 fl (79-97) 10/06/16 05:50 MCH 29 pg (28-32) 10/06/16 05:50 MCHC 33 % (30-34) 10/06/16 05:50 RDW 15.6 % (13.2-15.2) H 10/06/16 05:50 Plt Count 76 K/mm3 (140-440) L 10/06/16 05:50 Add Manual Diff Complete 10/03/16 17:45 Total Counted 100 10/03/16 17:45 Seg Neuts % (Manual) 41.0 % (40.0-70.0) 10/03/16 17:45 Band Neutrophils % 42.0 % 10/03/16 17:45 Lymphocytes % (Manual) 9.0 % (13.4-35.0) L 10/03/16 17:45 Reactive Lymphs % (Man) 0 % 10/03/16 17:45 Monocytes % (Manual) 4.0 % (0.0-7.3) 10/03/16 17:45 Eosinophils % (Manual) 1.0 % (0.0-4.3) 10/03/16 17:45 Basophils % (Manual) 0 % (0.0-1.8) 10/03/16 17:45 Metamyelocytes % 2.0 % 10/03/16 17:45 Myelocytes % 1.0 % 10/03/16 17:45 Promyelocytes % 0 % 10/03/16 17:45 Blast Cells % 0 % 10/03/16 17:45 Nucleated RBC % Not Reportable 10/03/16 17:45 Seg Neutrophils # Man 4.2 K/mm3 (1.8-7.7) 10/03/16 17:45 Band Neutrophils # 4.3 K/mm3 10/03/16 17:45 Lymphocytes # (Manual) 0.9 K/mm3 (1.2-5.4) L 10/03/16 17:45 Abs React Lymphs (Man) 0.0 K/mm3 10/03/16 17:45 Monocytes # (Manual) 0.4 K/mm3 (0.0-0.8) 10/03/16 17:45 Eosinophils # (Manual) 0.1 K/mm3 (0.0-0.4) 10/03/16 17:45 Basophils # (Manual) 0.0 K/mm3 (0.0-0.1) 10/03/16 17:45 Metamyelocytes # 0.2 K/mm3 10/03/16 17:45 Myelocytes # 0.1 K/mm3 10/03/16 17:45 Promyelocytes # 0.0 K/mm3 10/03/16 17:45 Blast Cells # 0.0 K/mm3 10/03/16 17:45 WBC Morphology Not Reportable 10/03/16 17:45 Hypersegmented Neuts Not Reportable 10/03/16 17:45 Hyposegmented Neuts Not Reportable 10/03/16 17:45 Hypogranular Neuts Not Reportable 10/03/16 17:45 Smudge Cells Not Reportable 10/03/16 17:45 Toxic Granulation Not Reportable 10/03/16 17:45 Toxic Vacuolation Not Reportable 10/03/16 17:45 Dohle Bodies Not Reportable 10/03/16 17:45 Pelger-Huet Anomaly Not Reportable 10/03/16 17:45 Len Rods Not Reportable 10/03/16 17:45 Platelet Estimate Appears decreased 10/03/16 17:45 Clumped Platelets Not Reportable 10/03/16 17:45 Plt Clumps, EDTA Not Reportable 10/03/16 17:45 Large Platelets Not Reportable 10/03/16 17:45 Giant Platelets Not Reportable 10/03/16 17:45 Platelet Satelliting Not Reportable 10/03/16 17:45 Plt Morphology Comment Not Reportable 10/03/16 17:45 RBC Morphology Not Reportable 10/03/16 17:45 Dimorphic RBCs Not Reportable 10/03/16 17:45 Polychromasia Not Reportable 10/03/16 17:45 Hypochromasia Not Reportable 10/03/16 17:45 Poikilocytosis 1+ 10/03/16 17:45 Anisocytosis 1+ 10/03/16 17:45 Microcytosis Not Reportable 10/03/16 17:45 Macrocytosis Not Reportable 10/03/16 17:45 Spherocytes Not Reportable 10/03/16 17:45 Pappenheimer Bodies Not Reportable 10/03/16 17:45 Sickle Cells Not Reportable 10/03/16 17:45 Target Cells Not Reportable 10/03/16 17:45 Tear Drop Cells Not Reportable 10/03/16 17:45 Ovalocytes Not Reportable 10/03/16 17:45 Helmet Cells Not Reportable 10/03/16 17:45 Hitchcock-Westminster Bodies Not Reportable 10/03/16 17:45 Jefferson Rings Not Reportable 10/03/16 17:45 Jv Cells Not Reportable 10/03/16 17:45 Bite Cells Not Reportable 10/03/16 17:45 Crenated Cell Not Reportable 10/03/16 17:45 Elliptocytes Not Reportable 10/03/16 17:45 Acanthocytes (Spur) Not Reportable 10/03/16 17:45 Rouleaux Not Reportable 10/03/16 17:45 Hemoglobin C Crystals Not Reportable 10/03/16 17:45 Schistocytes Not Reportable 10/03/16 17:45 Malaria parasites Not Reportable 10/03/16 17:45 Jackson Bodies Not Reportable 10/03/16 17:45 Hem Pathologist Commnt No 10/03/16 17:45 PT 27.7 Sec. (12.2-14.9) H 10/04/16 15:20 INR 2.57 (0.87-1.13) H 10/04/16 15:20 APTT 111.9 Sec. (24.2-36.6) H* 10/04/16 15:20 Heparin Anti-Xa Level 0.32 U.I./ml (0.3-0.7) 10/06/16 05:50 POC ABG pH 7.439 (7.35-7.45) 10/06/16 03:44 POC ABG pCO2 36.5 (35-45) 10/06/16 03:44 POC ABG pO2 151 (80-105) H 10/06/16 03:44 POC ABG HCO3 24.7 10/06/16 03:44 POC ABG Total CO2 26 10/06/16 03:44 POC ABG O2 Sat 99 10/06/16 03:44 POC ABG Base Excess 1 10/06/16 03:44 FiO2 60 % 10/06/16 03:44 Sodium 144 mmol/L (137-145) 10/06/16 05:50 Potassium 3.9 mmol/L (3.6-5.0) 10/06/16 05:50 Chloride 109.4 mmol/L (98-107) H 10/06/16 05:50 Carbon Dioxide 24 mmol/L (22-30) 10/06/16 05:50 Anion Gap Not Reportable 10/06/16 05:50 BUN 23 mg/dL (7-17) H 10/06/16 05:50 Creatinine 1.5 mg/dL (0.7-1.2) H 10/06/16 05:50 Estimated GFR 44 ml/min 10/06/16 05:50 BUN/Creatinine Ratio 15.33 % 10/06/16 05:50 Glucose 104 mg/dL (65-100) H 10/06/16 05:50 Hemoglobin A1c 5.8 % (4-6) 10/02/16 01:58 Lactic Acid 1.8 mmol/L (0.7-2.0) 10/05/16 04:00 Calcium 7.6 mg/dL (8.4-10.2) L D 10/06/16 05:50 Phosphorus 3.0 mg/dL (2.5-4.5) 10/06/16 05:50 Magnesium 2.0 mg/dL (1.7-2.3) 10/06/16 05:50 Total Bilirubin 0.2 mg/dL (0.1-1.2) 10/03/16 17:45 AST 78 units/L (5-40) H 10/03/16 17:45 ALT 35 units/L (7-56) 10/03/16 17:45 Alkaline Phosphatase 55 units/L (35-129) 10/03/16 17:45 Troponin T < 0.010 ng/mL (0.00-0.029) 10/02/16 06:26 Total Protein 2.9 g/dL (6.3-8.2) L D 10/03/16 17:45 Albumin 1.4 g/dL (3.9-5) L 10/03/16 17:45 Albumin/Globulin Ratio 0.9 % 10/03/16 17:45 Lipase 32 units/L (13-60) 10/02/16 01:03 Urine Color Yellow (Yellow) 10/02/16 01:50 Urine Turbidity Clear (Clear) 10/02/16 01:50 Urine pH 6.0 (5.0-7.0) 10/02/16 01:50 Ur Specific Rock 1.011 (1.003-1.030) 10/02/16 01:50 Urine Protein 30 mg/dl mg/dL (Negative) 10/02/16 01:50 Urine Glucose (UA) >=500 mg/dL (Negative) 10/02/16 01:50 Urine Ketones Tr mg/dL (Negative) 10/02/16 01:50 Urine Blood Mod (Negative) 10/02/16 01:50 Urine Nitrite Neg (Negative) 10/02/16 01:50 Urine Bilirubin Neg (Negative) 10/02/16 01:50 Urine Urobilinogen < 2.0 mg/dL (<2.0) 10/02/16 01:50 Ur Leukocyte Esterase Lg (Negative) 10/02/16 01:50 Urine WBC (Auto) 19.0 /HPF (0.0-6.0) H 10/02/16 01:50 Urine RBC (Auto) 15.0 /HPF (0.0-6.0) 10/02/16 01:50 U Epithel Cells (Auto) 10.0 /HPF (0-13.0) 10/02/16 01:50 Urine Bacteria (Auto) 1+ /HPF (Negative) 10/02/16 01:50 Urine Mucus Few /HPF 10/02/16 01:50 Urine Creatinine 53.3 mg/dL (0.1-20.0) H 10/04/16 03:58 Urine Sodium 96 mEq/L 10/04/16 03:58 Blood Type A POSITIVE 10/03/16 14:25 Antibody Screen Negative 10/03/16 14:25 Crossmatch See Detail 10/03/16 14:25
[2016-10-06] MEDS: PEPCID IV SCH (13:28)
[2016-10-06 18:44] LABS: Hematocrit 32.9 % (30.3-42.9); Hemoglobin 11.2 gm/dl (10.1-14.3)
[2016-10-06] MEDS: NACL 0.45% 1000 ML IV PRN (23:31)
[2016-10-07] MEDS: NACL 0.45% 1000 ML IV PRN ×3 (00:10→01:22)
[2016-10-07] MEDS: fentaNYL DRIP Premix 100 ML IV SCH (01:59)
[2016-10-07] MEDS: FLAGYL 500 MG/100 ML 100 ML IV SCH ×3 (05:46→22:32)
[2016-10-07 06:11] LABS: Hemoglobin 12.3 gm/dl (10.1-14.3); Mean Corpuscular HGB Conc 33 % (30-34); Mean Corpuscular Hemoglobin 29 pg (28-32); Mean Corpuscular Volume 88 fl (79-97); Red Blood Count 4.33 M/mm3 (3.65-5.03); Red Cell Distribution Width 16.2 % (13.2-15.2); White Blood Count 16.8 K/mm3 (4.5-11.0)
[2016-10-07 06:14] LABS: Platelet Count 95 K/mm3 (140-440)
[2016-10-07 06:24] LABS: ISTAT Base Excess -6; ISTAT HCO3 18.5; ISTAT PCO2 27.8 (35-45); ISTAT PH 7.431 (7.35-7.45); ISTAT PO2 78 (80-105); ISTAT SO2 96; ISTAT TCO2 19
[2016-10-07 06:31] LABS: BUN/Creatinine Ratio 14.5; Calcium 7.4 mg/dL (8.4-10.2); Potassium 4.1 mmol/L (3.6-5.0)
[2016-10-07] MEDS: D5W 1,000 ML IV SCH ×2 (07:34→20:53)
--- NOTE | 2016-10-07 08:27 | Progress Note ---
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 Worsening organ failure in the face of ischemic bowel. Inevitable that this would happen. not currently at bedside. Awaiting final decision. Currently patient remains full code. Overall prognosis is very poor. Hope family will decide palliative measures and comfort care. CCT 31 minutes. Subjective Date of service: 10/07/16 Interval history: Had to restart Levo some time last evening. Currently on 7.5. Brother at bedside. Sedated on Fent and ativan. Renal function is worsening today. Objective Vital Signs - 12hr 10/06/16 10/06/16 10/06/16 20:30 20:45 20:46 Temperature Pulse Rate 130 H 113 H 116 H Pulse Rate [ From Monitor] Respiratory 31 H 21 24 Rate Blood Pressure 103/65 103/65 100/69 O2 Sat by Pulse 85 89 90 Oximetry 10/06/16 10/06/16 10/06/16 21:00 21:01 21:15 Temperature Pulse Rate 120 H 118 H 122 H Pulse Rate [ From Monitor] Respiratory 24 24 21 Rate Blood Pressure 84/57 84/57 84/57 O2 Sat by Pulse 93 93 90 Oximetry 10/06/16 10/06/16 10/06/16 21:30 21:45 22:00 Temperature Pulse Rate 118 H 116 H 117 H Pulse Rate [ From Monitor] Respiratory 25 H 26 H 26 H Rate Blood Pressure 80/45 80/45 67/45 O2 Sat by Pulse 88 92 96 Oximetry 10/06/16 10/06/16 10/06/16 22:04 22:15 22:30 Temperature Pulse Rate 118 H 122 H 121 H Pulse Rate [ From Monitor] Respiratory 26 H 24 28 H Rate Blood Pressure 66/44 72/46 88/55 O2 Sat by Pulse 92 91 Oximetry 10/06/16 10/06/16 10/06/16 22:45 23:00 23:15 Temperature Pulse Rate 121 H 122 H 118 H Pulse Rate [ From Monitor] Respiratory 29 H 30 H 25 H Rate Blood Pressure 88/55 77/50 77/50 O2 Sat by Pulse 90 89 92 Oximetry 10/06/16 10/06/16 10/06/16 23:30 23:37 23:44 Temperature Pulse Rate 117 H 116 H 114 H Pulse Rate [ From Monitor] Respiratory 28 H 28 H Rate Blood Pressure 75/46 65/43 65/43 O2 Sat by Pulse 93 94 Oximetry 10/06/16 10/07/16 10/07/16 23:45 00:00 00:15 Temperature 99.9 F H Pulse Rate 113 H 118 H 114 H Pulse Rate [ 125 H From Monitor] Respiratory 26 H 27 H 22 Rate Blood Pressure 65/43 75/48 72/48 O2 Sat by Pulse 93 91 95 Oximetry 10/07/16 10/07/16 10/07/16 00:30 00:35 00:45 Temperature Pulse Rate 117 H 115 H 115 H Pulse Rate [ From Monitor] Respiratory 24 23 25 H Rate Blood Pressure 75/54 75/54 75/54 O2 Sat by Pulse 95 96 Oximetry 10/07/16 10/07/16 10/07/16 01:00 01:15 01:30 Temperature Pulse Rate 119 H 122 H 118 H Pulse Rate [ From Monitor] Respiratory 26 H 24 21 Rate Blood Pressure 76/49 76/49 78/52 O2 Sat by Pulse 94 Oximetry 10/07/16 10/07/16 10/07/16 01:45 01:47 01:50 Temperature Pulse Rate 122 H 123 H 120 H Pulse Rate [ From Monitor] Respiratory 26 H 28 H 21 Rate Blood Pressure 78/52 78/52 65/43 O2 Sat by Pulse 95 95 95 Oximetry 10/07/16 10/07/16 10/07/16 02:00 02:01 02:15 Temperature Pulse Rate 122 H 122 H 123 H Pulse Rate [ From Monitor] Respiratory 25 H 24 24 Rate Blood Pressure 75/46 75/46 78/52 O2 Sat by Pulse 91 94 93 Oximetry 10/07/16 10/07/16 10/07/16 02:30 02:45 03:00 Temperature Pulse Rate 121 H 121 H 119 H Pulse Rate [ From Monitor] Respiratory 24 27 H 26 H Rate Blood Pressure 78/51 78/57 95/62 O2 Sat by Pulse 95 Oximetry 10/07/16 10/07/16 10/07/16 03:05 03:15 03:30 Temperature Pulse Rate 120 H 123 H 124 H Pulse Rate [ From Monitor] Respiratory 27 H 25 H 27 H Rate Blood Pressure 95/62 97/69 87/55 O2 Sat by Pulse 93 Oximetry 10/07/16 10/07/16 10/07/16 03:39 03:45 04:00 Temperature 98.5 F Pulse Rate 123 H 123 H 122 H Pulse Rate [ 120 H From Monitor] Respiratory 27 H 27 H Rate Blood Pressure 87/55 74/53 80/50 O2 Sat by Pulse 93 91 92 Oximetry 10/07/16 10/07/16 10/07/16 04:09 04:15 04:30 Temperature Pulse Rate 122 H 124 H 123 H Pulse Rate [ From Monitor] Respiratory 26 H 25 H 26 H Rate Blood Pressure 80/50 83/57 92/57 O2 Sat by Pulse 93 91 91 Oximetry 10/07/16 10/07/16 10/07/16 04:45 05:00 05:05 Temperature Pulse Rate 125 H 125 H 126 H Pulse Rate [ From Monitor] Respiratory 26 H 26 H 26 H Rate Blood Pressure 85/55 80/58 80/58 O2 Sat by Pulse 95 90 94 Oximetry 10/07/16 10/07/16 10/07/16 05:15 05:30 05:45 Temperature Pulse Rate 126 H 125 H 122 H Pulse Rate [ From Monitor] Respiratory 26 H 27 H 27 H Rate Blood Pressure 69/48 75/55 95/61 O2 Sat by Pulse 92 91 91 Oximetry 10/07/16 10/07/16 10/07/16 06:00 06:01 06:15 Temperature Pulse Rate 122 H 123 H 126 H Pulse Rate [ From Monitor] Respiratory 26 H 25 H 27 H Rate Blood Pressure 105/66 105/66 91/58 O2 Sat by Pulse 93 96 94 Oximetry 10/07/16 10/07/16 10/07/16 06:30 06:45 07:00 Temperature Pulse Rate 125 H 124 H 124 H Pulse Rate [ From Monitor] Respiratory 26 H 26 H 27 H Rate Blood Pressure 90/66 81/56 85/64 O2 Sat by Pulse 93 94 93 Oximetry 10/07/16 10/07/16 07:15 08:00 Temperature 98.8 F Pulse Rate 119 H Pulse Rate [ From Monitor] Respiratory 26 H Rate Blood Pressure 102/73 O2 Sat by Pulse 95 Oximetry Constitutional: no acute distress Eyes: non-icteric ENT: oropharynx moist, other (orally intubated) Neck: supple, no lymphadenopathy Ascultation: Bilateral: clear Percussion: Bilateral: not dull Cardiovascular: other (sinus tachycardia) Gastrointestinal: other (post surgical changes, open wound is now closed) Integumentary: normal Extremities: no cyanosis, no edema Neurologic: normal mental status, non-focal exam Psychiatric: mood appropriate CBC and BMP: 10/07/16 05:45 10/07/16 05:45 ABG, PT/INR, D-dimer: ABG POC ABG pH 7.431 (7.35-7.45) 10/07/16 06:09 POC ABG pCO2 27.8 (35-45) L 10/07/16 06:09 POC ABG pO2 78 (80-105) L 10/07/16 06:09 POC ABG HCO3 18.5 10/07/16 06:09 POC ABG Total CO2 19 10/07/16 06:09 POC ABG O2 Sat 96 10/07/16 06:09 PT/INR, D-dimer PT 27.7 Sec. (12.2-14.9) H 10/04/16 15:20 INR 2.57 (0.87-1.13) H 10/04/16 15:20 Abnormal lab findings: Abnormal Labs 10/02/16 10/03/16 10/03/16 06:26 07:33 08:19 WBC 17.8 H RBC Hgb Hct RDW 15.5 H Plt Count Seg Neuts % (Manual) 28.0 L Lymphocytes % (Manual) 6.0 L Monocytes % (Manual) 12.0 H Lymphocytes # (Manual) 1.1 L Monocytes # (Manual) 2.1 H PT INR APTT Heparin Anti-Xa Level POC ABG pH POC ABG pCO2 POC ABG pO2 Sodium Potassium 5.5 H D Chloride Carbon Dioxide 17 L BUN 56 H Creatinine 3.1 H D Glucose Lactic Acid 3.2 H* Calcium AST Total Protein Albumin Urine Creatinine Crossmatch 10/03/16 10/03/16 10/03/16 08:19 14:25 17:45 WBC RBC 2.27 L Hgb 6.8 L D Hct 21.3 L D RDW 15.7 H Plt Count 122 L Seg Neuts % (Manual) Lymphocytes % (Manual) 9.0 L Monocytes % (Manual) Lymphocytes # (Manual) 0.9 L Monocytes # (Manual) PT INR APTT Heparin Anti-Xa Level POC ABG pH POC ABG pCO2 POC ABG pO2 Sodium Potassium Chloride Carbon Dioxide BUN Creatinine Glucose Lactic Acid 5.7 H* Calcium AST Total Protein Albumin Urine Creatinine Crossmatch See Detail 10/03/16 10/03/16 10/03/16 17:45 17:45 18:34 WBC RBC Hgb Hct RDW Plt Count Seg Neuts % (Manual) Lymphocytes % (Manual) Monocytes % (Manual) Lymphocytes # (Manual) Monocytes # (Manual) PT 32.1 H INR 3.09 H APTT 121.1 H* Heparin Anti-Xa Level POC ABG pH 7.058 L POC ABG pCO2 46.4 H POC ABG pO2 124 H Sodium 147 H Potassium Chloride 117.4 H Carbon Dioxide 16 L BUN 54 H Creatinine 2.8 H Glucose Lactic Acid Calcium 5.3 L* D AST 78 H Total Protein 2.9 L D Albumin 1.4 L Urine Creatinine Crossmatch 10/03/16 10/03/16 10/04/16 20:56 23:04 03:58 WBC RBC Hgb Hct RDW Plt Count Seg Neuts % (Manual) Lymphocytes % (Manual) Monocytes % (Manual) Lymphocytes # (Manual) Monocytes # (Manual) PT INR APTT Heparin Anti-Xa Level POC ABG pH POC ABG pCO2 27.3 L POC ABG pO2 211 H Sodium Potassium Chloride Carbon Dioxide BUN Creatinine Glucose Lactic Acid 3.1 H* Calcium AST Total Protein Albumin Urine Creatinine 53.3 H Crossmatch 10/04/16 10/04/16 10/04/16 04:19 04:19 04:19 WBC RBC 2.80 L Hgb 8.0 L Hct 24.4 L RDW 16.3 H Plt Count 77 L Seg Neuts % (Manual) Lymphocytes % (Manual) Monocytes % (Manual) Lymphocytes # (Manual) Monocytes # (Manual) PT INR APTT Heparin Anti-Xa Level POC ABG pH POC ABG pCO2 POC ABG pO2 Sodium 147 H Potassium Chloride 115.2 H Carbon Dioxide 20 L BUN 45 H Creatinine 2.2 H Glucose 150 H Lactic Acid 3.5 H* Calcium 5.7 L* AST Total Protein Albumin Urine Creatinine Crossmatch 10/04/16 10/04/16 10/04/16 04:54 10:55 15:20 WBC RBC Hgb 9.5 L Hct 28.3 L RDW Plt Count 66 L Seg Neuts % (Manual) Lymphocytes % (Manual) Monocytes % (Manual) Lymphocytes # (Manual) Monocytes # (Manual) PT INR APTT Heparin Anti-Xa Level POC ABG pH 7.489 H 7.454 H POC ABG pCO2 17.6 L 27.9 L POC ABG pO2 118 H Sodium Potassium Chloride Carbon Dioxide BUN Creatinine Glucose Lactic Acid Calcium AST Total Protein Albumin Urine Creatinine Crossmatch 10/04/16 10/04/16 10/04/16 15:20 16:19 19:55 WBC 12.1 H RBC 2.92 L Hgb 8.4 L Hct 25.5 L RDW 16.3 H Plt Count 66 L Seg Neuts % (Manual) Lymphocytes % (Manual) Monocytes % (Manual) Lymphocytes # (Manual) Monocytes # (Manual) PT 27.7 H INR 2.57 H APTT 111.9 H* Heparin Anti-Xa Level POC ABG pH 7.247 L POC ABG pCO2 46.2 H POC ABG pO2 64 L Sodium Potassium Chloride Carbon Dioxide BUN Creatinine Glucose Lactic Acid Calcium AST Total Protein Albumin Urine Creatinine Crossmatch 10/04/16 10/04/16 10/05/16 22:26 Unknown 00:34 WBC RBC Hgb Hct RDW Plt Count Seg Neuts % (Manual) Lymphocytes % (Manual) Monocytes % (Manual) Lymphocytes # (Manual) Monocytes # (Manual) PT INR APTT Heparin Anti-Xa Level 0.24 L POC ABG pH POC ABG pCO2 32.1 L POC ABG pO2 62 L Sodium Potassium Chloride Carbon Dioxide BUN Creatinine Glucose Lactic Acid 2.9 H* Calcium AST Total Protein Albumin Urine Creatinine Crossmatch 10/05/16 10/05/16 10/05/16 04:00 04:00 05:35 WBC 16.8 H RBC 2.32 L Hgb 6.7 L Hct 20.2 L RDW 16.7 H Plt Count 87 L Seg Neuts % (Manual) Lymphocytes % (Manual) Monocytes % (Manual) Lymphocytes # (Manual) Monocytes # (Manual) PT INR APTT Heparin Anti-Xa Level POC ABG pH 7.223 L POC ABG pCO2 59.9 H POC ABG pO2 68 L Sodium 151 H Potassium Chloride 115.8 H Carbon Dioxide BUN 29 H Creatinine 1.7 H Glucose 142 H Lactic Acid Calcium 6.4 L AST Total Protein Albumin Urine Creatinine Crossmatch 10/05/16 10/05/16 10/06/16 08:38 17:05 03:44 WBC RBC Hgb Hct RDW Plt Count Seg Neuts % (Manual) Lymphocytes % (Manual) Monocytes % (Manual) Lymphocytes # (Manual) Monocytes # (Manual) PT INR APTT Heparin Anti-Xa Level POC ABG pH 7.348 L POC ABG pCO2 45.7 H POC ABG pO2 149 H 151 H Sodium Potassium Chloride Carbon Dioxide BUN Creatinine Glucose Lactic Acid Calcium AST Total Protein Albumin Urine Creatinine Crossmatch 10/06/16 10/06/16 10/07/16 05:50 05:50 05:45 WBC 16.8 H RBC Hgb Hct RDW 15.6 H 16.2 H Plt Count 76 L 95 L Seg Neuts % (Manual) Lymphocytes % (Manual) Monocytes % (Manual) Lymphocytes # (Manual) Monocytes # (Manual) PT INR APTT Heparin Anti-Xa Level POC ABG pH POC ABG pCO2 POC ABG pO2 Sodium Potassium Chloride 109.4 H Carbon Dioxide BUN 23 H Creatinine 1.5 H Glucose 104 H Lactic Acid Calcium 7.6 L D AST Total Protein Albumin Urine Creatinine Crossmatch 10/07/16 10/07/16 10/07/16 05:45 05:45 06:09 WBC RBC Hgb Hct RDW Plt Count Seg Neuts % (Manual) Lymphocytes % (Manual) Monocytes % (Manual) Lymphocytes # (Manual) Monocytes # (Manual) PT INR APTT Heparin Anti-Xa Level 0.23 L POC ABG pH POC ABG pCO2 27.8 L POC ABG pO2 78 L Sodium Potassium Chloride Carbon Dioxide 21 L BUN 29 H Creatinine 2.0 H Glucose 142 H Lactic Acid Calcium 7.4 L AST Total Protein Albumin Urine Creatinine Crossmatch
--- NOTE | 2016-10-07 08:59 | Progress Note ---
Assessment and Plan - Patient Problems (1) ELLIOTT (acute kidney injury) Current Visit: Yes Status: Acute Plan to address problem: Acute Kidney Injury in the setting of hypotension, shock and IV contrast. Slight increase in creatinine since yesterday likely due to hypotension. Continue IV fluids. (2) Lactic acidosis Current Visit: Yes Status: Acute Plan to address problem: Improved. 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 (5) Anemia Current Visit: Yes Status: Acute Plan to address problem: S/p PRBC. Subjective Date of service: 10/07/16 Interval history: Patient remain on the vent. Objective - Vital Signs Vital signs: Vital Signs - 12hr 10/06/16 10/06/16 10/06/16 21:00 21:01 21:15 Temperature Pulse Rate 120 H 118 H 122 H Pulse Rate [ From Monitor] Respiratory 24 24 21 Rate Blood Pressure 84/57 84/57 84/57 O2 Sat by Pulse 93 93 90 Oximetry 10/06/16 10/06/16 10/06/16 21:30 21:45 22:00 Temperature Pulse Rate 118 H 116 H 117 H Pulse Rate [ From Monitor] Respiratory 25 H 26 H 26 H Rate Blood Pressure 80/45 80/45 67/45 O2 Sat by Pulse 88 92 96 Oximetry 10/06/16 10/06/16 10/06/16 22:04 22:15 22:30 Temperature Pulse Rate 118 H 122 H 121 H Pulse Rate [ From Monitor] Respiratory 26 H 24 28 H Rate Blood Pressure 66/44 72/46 88/55 O2 Sat by Pulse 92 91 Oximetry 10/06/16 10/06/16 10/06/16 22:45 23:00 23:15 Temperature Pulse Rate 121 H 122 H 118 H Pulse Rate [ From Monitor] Respiratory 29 H 30 H 25 H Rate Blood Pressure 88/55 77/50 77/50 O2 Sat by Pulse 90 89 92 Oximetry 10/06/16 10/06/16 10/06/16 23:30 23:37 23:44 Temperature Pulse Rate 117 H 116 H 114 H Pulse Rate [ From Monitor] Respiratory 28 H 28 H Rate Blood Pressure 75/46 65/43 65/43 O2 Sat by Pulse 93 94 Oximetry 10/06/16 10/07/16 10/07/16 23:45 00:00 00:15 Temperature 99.9 F H Pulse Rate 113 H 118 H 114 H Pulse Rate [ 125 H From Monitor] Respiratory 26 H 27 H 22 Rate Blood Pressure 65/43 75/48 72/48 O2 Sat by Pulse 93 91 95 Oximetry 10/07/16 10/07/16 10/07/16 00:30 00:35 00:45 Temperature Pulse Rate 117 H 115 H 115 H Pulse Rate [ From Monitor] Respiratory 24 23 25 H Rate Blood Pressure 75/54 75/54 75/54 O2 Sat by Pulse 95 96 Oximetry 10/07/16 10/07/16 10/07/16 01:00 01:15 01:30 Temperature Pulse Rate 119 H 122 H 118 H Pulse Rate [ From Monitor] Respiratory 26 H 24 21 Rate Blood Pressure 76/49 76/49 78/52 O2 Sat by Pulse 94 Oximetry 10/07/16 10/07/16 10/07/16 01:45 01:47 01:50 Temperature Pulse Rate 122 H 123 H 120 H Pulse Rate [ From Monitor] Respiratory 26 H 28 H 21 Rate Blood Pressure 78/52 78/52 65/43 O2 Sat by Pulse 95 95 95 Oximetry 10/07/16 10/07/16 10/07/16 02:00 02:01 02:15 Temperature Pulse Rate 122 H 122 H 123 H Pulse Rate [ From Monitor] Respiratory 25 H 24 24 Rate Blood Pressure 75/46 75/46 78/52 O2 Sat by Pulse 91 94 93 Oximetry 10/07/16 10/07/16 10/07/16 02:30 02:45 03:00 Temperature Pulse Rate 121 H 121 H 119 H Pulse Rate [ From Monitor] Respiratory 24 27 H 26 H Rate Blood Pressure 78/51 78/57 95/62 O2 Sat by Pulse 95 Oximetry 10/07/16 10/07/16 10/07/16 03:05 03:15 03:30 Temperature Pulse Rate 120 H 123 H 124 H Pulse Rate [ From Monitor] Respiratory 27 H 25 H 27 H Rate Blood Pressure 95/62 97/69 87/55 O2 Sat by Pulse 93 Oximetry 10/07/16 10/07/16 10/07/16 03:39 03:45 04:00 Temperature 98.5 F Pulse Rate 123 H 123 H 122 H Pulse Rate [ 120 H From Monitor] Respiratory 27 H 27 H Rate Blood Pressure 87/55 74/53 80/50 O2 Sat by Pulse 93 91 92 Oximetry 10/07/16 10/07/16 10/07/16 04:09 04:15 04:30 Temperature Pulse Rate 122 H 124 H 123 H Pulse Rate [ From Monitor] Respiratory 26 H 25 H 26 H Rate Blood Pressure 80/50 83/57 92/57 O2 Sat by Pulse 93 91 91 Oximetry 10/07/16 10/07/16 10/07/16 04:45 05:00 05:05 Temperature Pulse Rate 125 H 125 H 126 H Pulse Rate [ From Monitor] Respiratory 26 H 26 H 26 H Rate Blood Pressure 85/55 80/58 80/58 O2 Sat by Pulse 95 90 94 Oximetry 10/07/16 10/07/16 10/07/16 05:15 05:30 05:45 Temperature Pulse Rate 126 H 125 H 122 H Pulse Rate [ From Monitor] Respiratory 26 H 27 H 27 H Rate Blood Pressure 69/48 75/55 95/61 O2 Sat by Pulse 92 91 91 Oximetry 10/07/16 10/07/16 10/07/16 06:00 06:01 06:15 Temperature Pulse Rate 122 H 123 H 126 H Pulse Rate [ From Monitor] Respiratory 26 H 25 H 27 H Rate Blood Pressure 105/66 105/66 91/58 O2 Sat by Pulse 93 96 94 Oximetry 10/07/16 10/07/16 10/07/16 06:30 06:45 07:00 Temperature Pulse Rate 125 H 124 H 124 H Pulse Rate [ From Monitor] Respiratory 26 H 26 H 27 H Rate Blood Pressure 90/66 81/56 85/64 O2 Sat by Pulse 93 94 93 Oximetry 10/07/16 10/07/16 10/07/16 07:15 07:19 07:30 Temperature Pulse Rate 119 H 118 H 121 H Pulse Rate [ From Monitor] Respiratory 26 H 26 H 26 H Rate Blood Pressure 102/73 102/73 100/63 O2 Sat by Pulse 95 97 98 Oximetry 10/07/16 10/07/16 10/07/16 07:45 08:00 08:10 Temperature 98.8 F Pulse Rate 123 H 123 H Pulse Rate [ 122 H From Monitor] Respiratory 26 H 26 H Rate Blood Pressure 100/63 102/63 O2 Sat by Pulse 95 97 Oximetry 10/07/16 10/07/16 08:15 08:17 Temperature Pulse Rate 123 H 124 H Pulse Rate [ From Monitor] Respiratory 26 H Rate Blood Pressure 94/68 94/68 O2 Sat by Pulse 94 97 Oximetry - General Appearance General appearance: well-developed, appears stated age, sedated on ventilator, intubated EENT: PERRL, other (constricted pupils) Neck: supple Respiratory: Present: Other (coarse breath sounds) Cardiology: regular, S1S2, no murmurs Gastrointestinal: other (surgical dressing noted) Neurologic: other (not responding) Musculoskeletal: other (right AKA) Psychiatric: other (not responding / sedated) - Lab 10/07/16 05:45 10/07/16 05:45 Most recent lab results Calcium 7.4 mg/dL (8.4-10.2) L 10/07/16 05:45 Phosphorus 3.0 mg/dL (2.5-4.5) 10/06/16 05:50 Magnesium 2.0 mg/dL (1.7-2.3) 10/06/16 05:50 Urine Creatinine 53.3 mg/dL (0.1-20.0) H 10/04/16 03:58 Urine Sodium 96 mEq/L 10/04/16 03:58
[2016-10-07] MEDS: PEPCID IV SCH (09:32)
[2016-10-07] MEDS: LEVAQUIN 750MG/150ML 150 ML IV SCH (10:40)
[2016-10-07] MEDS: HEPARIN/ 0.45% NACL-25,000 UNIT/500 ML 500 ML IV SCH (12:06)
[2016-10-07] MEDS: LEVOPHED DRIP 4 MG/NS 250 ML 250 ML IV SCH ×2 (12:30→20:51)
--- NOTE | 2016-10-07 13:03 | Progress Note ---
Assessment and Plan Assessment and plan: Patient is a 55 year female with hx of peripheral vascular disease, s/p right AKA and Ureteral stent which was planned for exchange on and patient had been discontinued from her chronic anticoauglation for the planned exachanged. 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 Follow up on SMA thrombus. Patient still intubated. Imaging, old records, testing, labs, nursing notes reviewed. Hospitalist Physical - Physical exam Narrative exam: GEN: toxic severely ill, intubated and sedated HEENT: ET tube in place CVS: Regular tachycardic, NORMAL S1S2 LUNGS/CHEST: NORMAL CHEST EXPANSION B, GOOD AIR ENTRY B ABD: Distended, surgical scar, pbs, ostomy - Constitutional Vitals: Temp Pulse Resp BP Pulse Ox 98.3 F 125 H 23 118/87 98 10/07/16 12:00 10/07/16 11:45 10/07/16 11:45 10/07/16 11:45 10/07/16 11:45 General appearance: Present: severe distress (severe abdominal pain) Results - Labs CBC & Chem 7: 10/07/16 05:45 10/07/16 05:45 Labs: Laboratory Last Values WBC 16.8 K/mm3 (4.5-11.0) H 10/07/16 05:45 RBC 4.33 M/mm3 (3.65-5.03) 10/07/16 05:45 Hgb 12.3 gm/dl (10.1-14.3) 10/07/16 05:45 Hct 38.0 % (30.3-42.9) 10/07/16 05:45 MCV 88 fl (79-97) 10/07/16 05:45 MCH 29 pg (28-32) 10/07/16 05:45 MCHC 33 % (30-34) 10/07/16 05:45 RDW 16.2 % (13.2-15.2) H 10/07/16 05:45 Plt Count 95 K/mm3 (140-440) L 10/07/16 05:45 Add Manual Diff Complete 10/03/16 17:45 Total Counted 100 10/03/16 17:45 Seg Neuts % (Manual) 41.0 % (40.0-70.0) 10/03/16 17:45 Band Neutrophils % 42.0 % 10/03/16 17:45 Lymphocytes % (Manual) 9.0 % (13.4-35.0) L 10/03/16 17:45 Reactive Lymphs % (Man) 0 % 10/03/16 17:45 Monocytes % (Manual) 4.0 % (0.0-7.3) 10/03/16 17:45 Eosinophils % (Manual) 1.0 % (0.0-4.3) 10/03/16 17:45 Basophils % (Manual) 0 % (0.0-1.8) 10/03/16 17:45 Metamyelocytes % 2.0 % 10/03/16 17:45 Myelocytes % 1.0 % 10/03/16 17:45 Promyelocytes % 0 % 10/03/16 17:45 Blast Cells % 0 % 10/03/16 17:45 Nucleated RBC % Not Reportable 10/03/16 17:45 Seg Neutrophils # Man 4.2 K/mm3 (1.8-7.7) 10/03/16 17:45 Band Neutrophils # 4.3 K/mm3 10/03/16 17:45 Lymphocytes # (Manual) 0.9 K/mm3 (1.2-5.4) L 10/03/16 17:45 Abs React Lymphs (Man) 0.0 K/mm3 10/03/16 17:45 Monocytes # (Manual) 0.4 K/mm3 (0.0-0.8) 10/03/16 17:45 Eosinophils # (Manual) 0.1 K/mm3 (0.0-0.4) 10/03/16 17:45 Basophils # (Manual) 0.0 K/mm3 (0.0-0.1) 10/03/16 17:45 Metamyelocytes # 0.2 K/mm3 10/03/16 17:45 Myelocytes # 0.1 K/mm3 10/03/16 17:45 Promyelocytes # 0.0 K/mm3 10/03/16 17:45 Blast Cells # 0.0 K/mm3 10/03/16 17:45 WBC Morphology Not Reportable 10/03/16 17:45 Hypersegmented Neuts Not Reportable 10/03/16 17:45 Hyposegmented Neuts Not Reportable 10/03/16 17:45 Hypogranular Neuts Not Reportable 10/03/16 17:45 Smudge Cells Not Reportable 10/03/16 17:45 Toxic Granulation Not Reportable 10/03/16 17:45 Toxic Vacuolation Not Reportable 10/03/16 17:45 Dohle Bodies Not Reportable 10/03/16 17:45 Pelger-Huet Anomaly Not Reportable 10/03/16 17:45 Len Rods Not Reportable 10/03/16 17:45 Platelet Estimate Appears decreased 10/03/16 17:45 Clumped Platelets Not Reportable 10/03/16 17:45 Plt Clumps, EDTA Not Reportable 10/03/16 17:45 Large Platelets Not Reportable 10/03/16 17:45 Giant Platelets Not Reportable 10/03/16 17:45 Platelet Satelliting Not Reportable 10/03/16 17:45 Plt Morphology Comment Not Reportable 10/03/16 17:45 RBC Morphology Not Reportable 10/03/16 17:45 Dimorphic RBCs Not Reportable 10/03/16 17:45 Polychromasia Not Reportable 10/03/16 17:45 Hypochromasia Not Reportable 10/03/16 17:45 Poikilocytosis 1+ 10/03/16 17:45 Anisocytosis 1+ 10/03/16 17:45 Microcytosis Not Reportable 10/03/16 17:45 Macrocytosis Not Reportable 10/03/16 17:45 Spherocytes Not Reportable 10/03/16 17:45 Pappenheimer Bodies Not Reportable 10/03/16 17:45 Sickle Cells Not Reportable 10/03/16 17:45 Target Cells Not Reportable 10/03/16 17:45 Tear Drop Cells Not Reportable 10/03/16 17:45 Ovalocytes Not Reportable 10/03/16 17:45 Helmet Cells Not Reportable 10/03/16 17:45 [place] Bodies Not Reportable 10/03/16 17:45 [place] Rings Not Reportable 10/03/16 17:45 [place] Cells Not Reportable 10/03/16 17:45 Bite Cells Not Reportable 10/03/16 17:45 Crenated Cell Not Reportable 10/03/16 17:45 Elliptocytes Not Reportable 10/03/16 17:45 Acanthocytes (Spur) Not Reportable 10/03/16 17:45 Rouleaux Not Reportable 10/03/16 17:45 Hemoglobin C Crystals Not Reportable 10/03/16 17:45 Schistocytes Not Reportable 10/03/16 17:45 Malaria parasites Not Reportable 10/03/16 17:45 [place] Bodies Not Reportable 10/03/16 17:45 Hem Pathologist Commnt No 10/03/16 17:45 PT 27.7 Sec. (12.2-14.9) H 10/04/16 15:20 INR 2.57 (0.87-1.13) H 10/04/16 15:20 APTT 111.9 Sec. (24.2-36.6) H* 10/04/16 15:20 Heparin Anti-Xa Level 0.23 U.I./ml (0.3-0.7) L 10/07/16 05:45 POC ABG pH 7.431 (7.35-7.45) 10/07/16 06:09 POC ABG pCO2 27.8 (35-45) L 10/07/16 06:09 POC ABG pO2 78 (80-105) L 10/07/16 06:09 POC ABG HCO3 18.5 10/07/16 06:09 POC ABG Total CO2 19 10/07/16 06:09 POC ABG O2 Sat 96 10/07/16 06:09 POC ABG Base Excess -6 10/07/16 06:09 FiO2 40 % 10/07/16 06:09 Sodium 137 mmol/L (137-145) 10/07/16 05:45 Potassium 4.1 mmol/L (3.6-5.0) 10/07/16 05:45 Chloride 102.0 mmol/L (98-107) 10/07/16 05:45 Carbon Dioxide 21 mmol/L (22-30) L 10/07/16 05:45 Anion Gap 18 mmol/L 10/07/16 05:45 BUN 29 mg/dL (7-17) H 10/07/16 05:45 Creatinine 2.0 mg/dL (0.7-1.2) H 10/07/16 05:45 Estimated GFR 31 ml/min 10/07/16 05:45 BUN/Creatinine Ratio 14.50 % 10/07/16 05:45 Glucose 142 mg/dL (65-100) H 10/07/16 05:45 Hemoglobin A1c 5.8 % (4-6) 10/02/16 01:58 Lactic Acid 1.8 mmol/L (0.7-2.0) 10/05/16 04:00 Calcium 7.4 mg/dL (8.4-10.2) L 10/07/16 05:45 Phosphorus 3.0 mg/dL (2.5-4.5) 10/06/16 05:50 Magnesium 2.0 mg/dL (1.7-2.3) 10/06/16 05:50 Total Bilirubin 0.2 mg/dL (0.1-1.2) 10/03/16 17:45 AST 78 units/L (5-40) H 10/03/16 17:45 ALT 35 units/L (7-56) 10/03/16 17:45 Alkaline Phosphatase 55 units/L (35-129) 10/03/16 17:45 Troponin T < 0.010 ng/mL (0.00-0.029) 10/02/16 06:26 Total Protein 2.9 g/dL (6.3-8.2) L D 10/03/16 17:45 Albumin 1.4 g/dL (3.9-5) L 10/03/16 17:45 Albumin/Globulin Ratio 0.9 % 10/03/16 17:45 Lipase 32 units/L (13-60) 10/02/16 01:03 Urine Color Yellow (Yellow) 10/02/16 01:50 Urine Turbidity Clear (Clear) 10/02/16 01:50 Urine pH 6.0 (5.0-7.0) 10/02/16 01:50 Ur Specific [place] 1.011 (1.003-1.030) 10/02/16 01:50 Urine Protein 30 mg/dl mg/dL (Negative) 10/02/16 01:50 Urine Glucose (UA) >=500 mg/dL (Negative) 10/02/16 01:50 Urine Ketones Tr mg/dL (Negative) 10/02/16 01:50 Urine Blood Mod (Negative) 10/02/16 01:50 Urine Nitrite Neg (Negative) 10/02/16 01:50 Urine Bilirubin Neg (Negative) 10/02/16 01:50 Urine Urobilinogen < 2.0 mg/dL (<2.0) 10/02/16 01:50 Ur Leukocyte Esterase Lg (Negative) 10/02/16 01:50 Urine WBC (Auto) 19.0 /HPF (0.0-6.0) H 10/02/16 01:50 Urine RBC (Auto) 15.0 /HPF (0.0-6.0) 10/02/16 01:50 U Epithel Cells (Auto) 10.0 /HPF (0-13.0) 10/02/16 01:50 Urine Bacteria (Auto) 1+ /HPF (Negative) 10/02/16 01:50 Urine Mucus Few /HPF 10/02/16 01:50 Urine Creatinine 53.3 mg/dL (0.1-20.0) H 10/04/16 03:58 Urine Sodium 96 mEq/L 10/04/16 03:58 Blood Type A POSITIVE 10/03/16 14:25 Antibody Screen Negative 10/03/16 14:25 Crossmatch See Detail 10/03/16 14:25
[2016-10-08 04:42] LABS: ISTAT Base Excess -10; ISTAT HCO3 16.5; ISTAT PCO2 32.9 (35-45); ISTAT PH 7.309 (7.35-7.45); ISTAT PO2 68 (80-105); ISTAT SO2 92; ISTAT TCO2 18
[2016-10-08] MEDS: FLAGYL 500 MG/100 ML 100 ML IV SCH (05:36)
[2016-10-08] MEDS: fentaNYL DRIP Premix 100 ML IV SCH (05:36)
[2016-10-08] MEDS: LEVOPHED DRIP 4 MG/NS 250 ML 250 ML IV SCH (05:36)
[2016-10-08 06:06] LABS: Hematocrit 38.5 % (30.3-42.9); Hemoglobin 12.3 gm/dl (10.1-14.3); Mean Corpuscular HGB Conc 32 % (30-34); Mean Corpuscular Hemoglobin 28 pg (28-32); Mean Corpuscular Volume 89 fl (79-97); Platelet Count 104 K/mm3 (140-440); Red Blood Count 4.34 M/mm3 (3.65-5.03); Red Cell Distribution Width 16.5 % (13.2-15.2)
[2016-10-08 06:07] LABS: White Blood Count 32.1 K/mm3 (4.5-11.0)
[2016-10-08 06:23] LABS: BUN/Creatinine Ratio 13.14; Calcium 6.9 mg/dL (8.4-10.2); Chloride 101.3 mmol/L (98-107); Potassium 4.7 mmol/L (3.6-5.0)
--- NOTE | 2016-10-08 09:18 | Progress Note ---
Assessment and Plan - Patient Problems (1) ELLIOTT (acute kidney injury) Status: Acute Plan to address problem: Acute Kidney Injury in the setting of hypotension, shock and IV contrast. Creatinine continue to increase in the setting of hypotension. (2) Lactic acidosis Status: Acute (3) Shock Status: Acute Plan to address problem: On Levophed. 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 Family decided to withdraw the support. (5) Anemia Status: Acute Plan to address problem: S/p PRBC. Subjective Date of service: 10/08/16 Interval history: Patient remain on the vent. Objective - Vital Signs Vital signs: Vital Signs - 12hr 10/07/16 10/07/16 10/07/16 21:30 21:45 22:00 Temperature Pulse Rate 130 H 127 H 126 H Pulse Rate [ From Monitor] Respiratory 17 18 17 Rate Blood Pressure 95/62 91/62 80/54 O2 Sat by Pulse 92 91 95 Oximetry 10/07/16 10/07/16 10/07/16 22:15 22:30 22:45 Temperature Pulse Rate 126 H 125 H 125 H Pulse Rate [ From Monitor] Respiratory 18 19 18 Rate Blood Pressure 88/63 98/59 90/63 O2 Sat by Pulse 95 93 Oximetry 10/07/16 10/07/16 10/07/16 22:50 23:00 23:04 Temperature Pulse Rate 127 H 123 H 125 H Pulse Rate [ From Monitor] Respiratory 18 18 18 Rate Blood Pressure 90/63 103/75 103/75 O2 Sat by Pulse 95 93 95 Oximetry 10/07/16 10/07/16 10/07/16 23:16 23:30 23:45 Temperature Pulse Rate 123 H 120 H 120 H Pulse Rate [ From Monitor] Respiratory 21 18 18 Rate Blood Pressure 78/58 83/49 87/59 O2 Sat by Pulse 91 95 Oximetry 10/07/16 10/08/16 10/08/16 23:56 00:00 00:15 Temperature 98.6 F Pulse Rate 121 H 122 H 120 H Pulse Rate [ 121 H From Monitor] Respiratory 18 18 Rate Blood Pressure 87/59 85/64 86/60 O2 Sat by Pulse 95 96 92 Oximetry 10/08/16 10/08/16 10/08/16 00:30 00:45 01:00 Temperature Pulse Rate 122 H 120 H 121 H Pulse Rate [ From Monitor] Respiratory 18 18 18 Rate Blood Pressure 94/61 98/69 102/64 O2 Sat by Pulse 93 92 95 Oximetry 10/08/16 10/08/16 10/08/16 01:15 01:30 01:32 Temperature Pulse Rate 120 H 119 H 120 H Pulse Rate [ From Monitor] Respiratory 18 17 18 Rate Blood Pressure 110/59 94/55 94/55 O2 Sat by Pulse 93 93 96 Oximetry 10/08/16 10/08/16 10/08/16 01:45 02:00 02:15 Temperature Pulse Rate 119 H 116 H 117 H Pulse Rate [ From Monitor] Respiratory 18 18 17 Rate Blood Pressure 89/56 83/61 76/58 O2 Sat by Pulse 94 93 91 Oximetry 10/08/16 10/08/16 10/08/16 02:30 02:42 02:45 Temperature Pulse Rate 116 H 117 H 113 H Pulse Rate [ From Monitor] Respiratory 18 18 18 Rate Blood Pressure 77/62 84/61 90/69 O2 Sat by Pulse 93 96 93 Oximetry 10/08/16 10/08/16 10/08/16 03:00 03:15 03:18 Temperature Pulse Rate 113 H 113 H 112 H Pulse Rate [ From Monitor] Respiratory 17 17 18 Rate Blood Pressure 102/71 97/69 97/69 O2 Sat by Pulse 93 97 Oximetry 10/08/16 10/08/16 10/08/16 03:30 03:45 03:52 Temperature Pulse Rate 113 H 114 H 114 H Pulse Rate [ From Monitor] Respiratory 19 18 Rate Blood Pressure 86/44 94/62 94/62 O2 Sat by Pulse 93 95 Oximetry 10/08/16 10/08/16 10/08/16 04:00 04:12 04:15 Temperature 98.5 F Pulse Rate 112 H 114 H 114 H Pulse Rate [ From Monitor] Respiratory 20 18 18 Rate Blood Pressure 90/59 90/59 96/62 O2 Sat by Pulse 91 95 92 Oximetry 10/08/16 10/08/16 10/08/16 04:16 04:30 04:45 Temperature Pulse Rate 115 H 114 H 116 H Pulse Rate [ From Monitor] Respiratory 18 17 18 Rate Blood Pressure 96/62 96/62 98/54 O2 Sat by Pulse 94 95 92 Oximetry 10/08/16 10/08/16 10/08/16 05:00 05:16 05:30 Temperature Pulse Rate 113 H 114 H 113 H Pulse Rate [ From Monitor] Respiratory 17 19 19 Rate Blood Pressure 99/64 87/57 94/64 O2 Sat by Pulse 93 91 92 Oximetry 10/08/16 10/08/16 10/08/16 05:45 05:56 05:58 Temperature Pulse Rate 115 H 112 H 114 H Pulse Rate [ From Monitor] Respiratory 18 18 18 Rate Blood Pressure 100/64 100/64 100/64 O2 Sat by Pulse 92 94 95 Oximetry 10/08/16 10/08/16 10/08/16 06:00 06:04 06:15 Temperature Pulse Rate 115 H 113 H 109 H Pulse Rate [ From Monitor] Respiratory 18 18 18 Rate Blood Pressure 100/64 105/60 101/63 O2 Sat by Pulse 95 95 92 Oximetry 10/08/16 10/08/16 10/08/16 06:30 06:45 07:00 Temperature Pulse Rate 110 H 111 H 112 H Pulse Rate [ From Monitor] Respiratory 18 18 18 Rate Blood Pressure 91/63 93/57 83/58 O2 Sat by Pulse 95 93 93 Oximetry 10/08/16 10/08/16 10/08/16 07:15 07:30 07:42 Temperature 97.7 F Pulse Rate 109 H 108 H Pulse Rate [ From Monitor] Respiratory 18 19 Rate Blood Pressure 91/66 93/67 O2 Sat by Pulse 93 95 Oximetry 10/08/16 10/08/16 10/08/16 07:45 07:46 07:52 Temperature Pulse Rate 109 H 110 H Pulse Rate [ 112 H From Monitor] Respiratory 18 18 Rate Blood Pressure 102/67 102/67 O2 Sat by Pulse 93 96 95 Oximetry 10/08/16 08:00 Temperature Pulse Rate 110 H Pulse Rate [ From Monitor] Respiratory 18 Rate Blood Pressure 90/59 O2 Sat by Pulse 95 Oximetry - General Appearance General appearance: well-developed, sedated on ventilator, intubated EENT: PERRL Neck: supple Respiratory: Present: Other (coarse breath sounds) Cardiology: regular, S1S2 Gastrointestinal: other (dressing noted) Integumentary: no rash Neurologic: other (sedated) Musculoskeletal: other (right AKA, no edema) Psychiatric: other (sedated) - Lab 10/08/16 05:40 10/08/16 05:40 Most recent lab results Calcium 6.9 mg/dL (8.4-10.2) L 10/08/16 05:40 Phosphorus 3.0 mg/dL (2.5-4.5) 10/06/16 05:50 Magnesium 2.0 mg/dL (1.7-2.3) 10/06/16 05:50 Urine Creatinine 53.3 mg/dL (0.1-20.0) H 10/04/16 03:58 Urine Sodium 96 mEq/L 10/04/16 03:58
--- NOTE | 2016-10-08 09:46 | Progress Note ---
Assessment and Plan Imp: 1. Mesenteric ischemia/ischemic bowel 2. Severe sepsis/septic shock 3. ELLIOTT 4. Acute respiratory failure, hypoxia Rec: 1. Bowel is unsalvagable; she has MOSF; family aware of dismal prognosis and have requested AND status and withdrawal of care; I confirmed with her these wishes, and appropriate orders/forms signed 2. Hospice consult 3. Complex decision-making Plan of care reviewed w/ family, they understand/agree Subjective Date of service: 10/08/16 Principal diagnosis: Acute respiratory failure Interval history: No events. Sedated on Fentanyl. Not responding. On pressors. Objective Vital Signs - 12hr 10/07/16 10/07/16 10/07/16 22:00 22:15 22:30 Temperature Pulse Rate 126 H 126 H 125 H Pulse Rate [ From Monitor] Respiratory 17 18 19 Rate Blood Pressure 80/54 88/63 98/59 O2 Sat by Pulse 95 95 93 Oximetry 10/07/16 10/07/16 10/07/16 22:45 22:50 23:00 Temperature Pulse Rate 125 H 127 H 123 H Pulse Rate [ From Monitor] Respiratory 18 18 18 Rate Blood Pressure 90/63 90/63 103/75 O2 Sat by Pulse 95 93 Oximetry 10/07/16 10/07/16 10/07/16 23:04 23:16 23:30 Temperature Pulse Rate 125 H 123 H 120 H Pulse Rate [ From Monitor] Respiratory 18 21 18 Rate Blood Pressure 103/75 78/58 83/49 O2 Sat by Pulse 95 91 95 Oximetry 10/07/16 10/07/16 10/08/16 23:45 23:56 00:00 Temperature 98.6 F Pulse Rate 120 H 121 H 122 H Pulse Rate [ 121 H From Monitor] Respiratory 18 18 Rate Blood Pressure 87/59 87/59 85/64 O2 Sat by Pulse 95 96 Oximetry 10/08/16 10/08/16 10/08/16 00:15 00:30 00:45 Temperature Pulse Rate 120 H 122 H 120 H Pulse Rate [ From Monitor] Respiratory 18 18 18 Rate Blood Pressure 86/60 94/61 98/69 O2 Sat by Pulse 92 93 92 Oximetry 10/08/16 10/08/16 10/08/16 01:00 01:15 01:30 Temperature Pulse Rate 121 H 120 H 119 H Pulse Rate [ From Monitor] Respiratory 18 18 17 Rate Blood Pressure 102/64 110/59 94/55 O2 Sat by Pulse 95 93 93 Oximetry 10/08/16 10/08/16 10/08/16 01:32 01:45 02:00 Temperature Pulse Rate 120 H 119 H 116 H Pulse Rate [ From Monitor] Respiratory 18 18 18 Rate Blood Pressure 94/55 89/56 83/61 O2 Sat by Pulse 96 94 93 Oximetry 10/08/16 10/08/16 10/08/16 02:15 02:30 02:42 Temperature Pulse Rate 117 H 116 H 117 H Pulse Rate [ From Monitor] Respiratory 17 18 18 Rate Blood Pressure 76/58 77/62 84/61 O2 Sat by Pulse 91 93 96 Oximetry 10/08/16 10/08/16 10/08/16 02:45 03:00 03:15 Temperature Pulse Rate 113 H 113 H 113 H Pulse Rate [ From Monitor] Respiratory 18 17 17 Rate Blood Pressure 90/69 102/71 97/69 O2 Sat by Pulse 93 93 Oximetry 10/08/16 10/08/16 10/08/16 03:18 03:30 03:45 Temperature Pulse Rate 112 H 113 H 114 H Pulse Rate [ From Monitor] Respiratory 18 19 18 Rate Blood Pressure 97/69 86/44 94/62 O2 Sat by Pulse 97 93 Oximetry 10/08/16 10/08/16 10/08/16 03:52 04:00 04:12 Temperature 98.5 F Pulse Rate 114 H 112 H 114 H Pulse Rate [ From Monitor] Respiratory 20 18 Rate Blood Pressure 94/62 90/59 90/59 O2 Sat by Pulse 95 91 95 Oximetry 10/08/16 10/08/16 10/08/16 04:15 04:16 04:30 Temperature Pulse Rate 114 H 115 H 114 H Pulse Rate [ From Monitor] Respiratory 18 18 17 Rate Blood Pressure 96/62 96/62 96/62 O2 Sat by Pulse 92 94 95 Oximetry 10/08/16 10/08/16 10/08/16 04:45 05:00 05:16 Temperature Pulse Rate 116 H 113 H 114 H Pulse Rate [ From Monitor] Respiratory 18 17 19 Rate Blood Pressure 98/54 99/64 87/57 O2 Sat by Pulse 92 93 91 Oximetry 10/08/16 10/08/16 10/08/16 05:30 05:45 05:56 Temperature Pulse Rate 113 H 115 H 112 H Pulse Rate [ From Monitor] Respiratory 19 18 18 Rate Blood Pressure 94/64 100/64 100/64 O2 Sat by Pulse 92 92 94 Oximetry 10/08/16 10/08/16 10/08/16 05:58 06:00 06:04 Temperature Pulse Rate 114 H 115 H 113 H Pulse Rate [ From Monitor] Respiratory 18 18 18 Rate Blood Pressure 100/64 100/64 105/60 O2 Sat by Pulse 95 95 95 Oximetry 10/08/16 10/08/16 10/08/16 06:15 06:30 06:45 Temperature Pulse Rate 109 H 110 H 111 H Pulse Rate [ From Monitor] Respiratory 18 18 18 Rate Blood Pressure 101/63 91/63 93/57 O2 Sat by Pulse 92 95 93 Oximetry 10/08/16 10/08/16 10/08/16 07:00 07:15 07:30 Temperature Pulse Rate 112 H 109 H 108 H Pulse Rate [ From Monitor] Respiratory 18 18 19 Rate Blood Pressure 83/58 91/66 93/67 O2 Sat by Pulse 93 93 95 Oximetry 10/08/16 10/08/16 10/08/16 07:42 07:45 07:46 Temperature 97.7 F Pulse Rate 109 H 110 H Pulse Rate [ From Monitor] Respiratory 18 Rate Blood Pressure 102/67 102/67 O2 Sat by Pulse 93 96 Oximetry 10/08/16 10/08/16 07:52 08:00 Temperature Pulse Rate 110 H Pulse Rate [ 112 H From Monitor] Respiratory 18 18 Rate Blood Pressure 90/59 O2 Sat by Pulse 95 95 Oximetry Constitutional: other (critically ill on vent) Eyes: non-icteric ENT: oropharynx moist, other (orally intubated) Neck: supple Effort: normal Ascultation: Bilateral: other (coarse BS bilaterally) Cardiovascular: other (sinus tachycardia, no mrg) Gastrointestinal: other (post surgical changes, open wound is now closed; firm abdomen; no BS) Integumentary: normal Extremities: no cyanosis, no edema Neurologic: other (sedated) Psychiatric: other (sedated) CBC and BMP: 10/08/16 05:40 10/08/16 05:40 ABG, PT/INR, D-dimer: ABG POC ABG pH 7.309 (7.35-7.45) L 10/08/16 04:02 POC ABG pCO2 32.9 (35-45) L 10/08/16 04:02 POC ABG pO2 68 (80-105) L 10/08/16 04:02 POC ABG HCO3 16.5 10/08/16 04:02 POC ABG Total CO2 18 10/08/16 04:02 POC ABG O2 Sat 92 10/08/16 04:02 PT/INR, D-dimer PT 27.7 Sec. (12.2-14.9) H 10/04/16 15:20 INR 2.57 (0.87-1.13) H 10/04/16 15:20 Abnormal lab findings: Abnormal Labs 10/02/16 10/03/16 10/03/16 06:26 07:33 08:19 WBC 17.8 H RBC Hgb Hct RDW 15.5 H Plt Count Seg Neuts % (Manual) 28.0 L Lymphocytes % (Manual) 6.0 L Monocytes % (Manual) 12.0 H Lymphocytes # (Manual) 1.1 L Monocytes # (Manual) 2.1 H PT INR APTT Heparin Anti-Xa Level POC ABG pH POC ABG pCO2 POC ABG pO2 Sodium Potassium 5.5 H D Chloride Carbon Dioxide 17 L BUN 56 H Creatinine 3.1 H D Glucose Lactic Acid 3.2 H* Calcium AST Total Protein Albumin Urine Creatinine Crossmatch 10/03/16 10/03/16 10/03/16 08:19 14:25 17:45 WBC RBC 2.27 L Hgb 6.8 L D Hct 21.3 L D RDW 15.7 H Plt Count 122 L Seg Neuts % (Manual) Lymphocytes % (Manual) 9.0 L Monocytes % (Manual) Lymphocytes # (Manual) 0.9 L Monocytes # (Manual) PT INR APTT Heparin Anti-Xa Level POC ABG pH POC ABG pCO2 POC ABG pO2 Sodium Potassium Chloride Carbon Dioxide BUN Creatinine Glucose Lactic Acid 5.7 H* Calcium AST Total Protein Albumin Urine Creatinine Crossmatch See Detail 10/03/16 10/03/16 10/03/16 17:45 17:45 18:34 WBC RBC Hgb Hct RDW Plt Count Seg Neuts % (Manual) Lymphocytes % (Manual) Monocytes % (Manual) Lymphocytes # (Manual) Monocytes # (Manual) PT 32.1 H INR 3.09 H APTT 121.1 H* Heparin Anti-Xa Level POC ABG pH 7.058 L POC ABG pCO2 46.4 H POC ABG pO2 124 H Sodium 147 H Potassium Chloride 117.4 H Carbon Dioxide 16 L BUN 54 H Creatinine 2.8 H Glucose Lactic Acid Calcium 5.3 L* D AST 78 H Total Protein 2.9 L D Albumin 1.4 L Urine Creatinine Crossmatch 10/03/16 10/03/16 10/04/16 20:56 23:04 03:58 WBC RBC Hgb Hct RDW Plt Count Seg Neuts % (Manual) Lymphocytes % (Manual) Monocytes % (Manual) Lymphocytes # (Manual) Monocytes # (Manual) PT INR APTT Heparin Anti-Xa Level POC ABG pH POC ABG pCO2 27.3 L POC ABG pO2 211 H Sodium Potassium Chloride Carbon Dioxide BUN Creatinine Glucose Lactic Acid 3.1 H* Calcium AST Total Protein Albumin Urine Creatinine 53.3 H Crossmatch 10/04/16 10/04/16 10/04/16 04:19 04:19 04:19 WBC RBC 2.80 L Hgb 8.0 L Hct 24.4 L RDW 16.3 H Plt Count 77 L Seg Neuts % (Manual) Lymphocytes % (Manual) Monocytes % (Manual) Lymphocytes # (Manual) Monocytes # (Manual) PT INR APTT Heparin Anti-Xa Level POC ABG pH POC ABG pCO2 POC ABG pO2 Sodium 147 H Potassium Chloride 115.2 H Carbon Dioxide 20 L BUN 45 H Creatinine 2.2 H Glucose 150 H Lactic Acid 3.5 H* Calcium 5.7 L* AST Total Protein Albumin Urine Creatinine Crossmatch 10/04/16 10/04/16 10/04/16 04:54 10:55 15:20 WBC RBC Hgb 9.5 L Hct 28.3 L RDW Plt Count 66 L Seg Neuts % (Manual) Lymphocytes % (Manual) Monocytes % (Manual) Lymphocytes # (Manual) Monocytes # (Manual) PT INR APTT Heparin Anti-Xa Level POC ABG pH 7.489 H 7.454 H POC ABG pCO2 17.6 L 27.9 L POC ABG pO2 118 H Sodium Potassium Chloride Carbon Dioxide BUN Creatinine Glucose Lactic Acid Calcium AST Total Protein Albumin Urine Creatinine Crossmatch 10/04/16 10/04/16 10/04/16 15:20 16:19 19:55 WBC 12.1 H RBC 2.92 L Hgb 8.4 L Hct 25.5 L RDW 16.3 H Plt Count 66 L Seg Neuts % (Manual) Lymphocytes % (Manual) Monocytes % (Manual) Lymphocytes # (Manual) Monocytes # (Manual) PT 27.7 H INR 2.57 H APTT 111.9 H* Heparin Anti-Xa Level POC ABG pH 7.247 L POC ABG pCO2 46.2 H POC ABG pO2 64 L Sodium Potassium Chloride Carbon Dioxide BUN Creatinine Glucose Lactic Acid Calcium AST Total Protein Albumin Urine Creatinine Crossmatch 10/04/16 10/04/16 10/05/16 22:26 Unknown 00:34 WBC RBC Hgb Hct RDW Plt Count Seg Neuts % (Manual) Lymphocytes % (Manual) Monocytes % (Manual) Lymphocytes # (Manual) Monocytes # (Manual) PT INR APTT Heparin Anti-Xa Level 0.24 L POC ABG pH POC ABG pCO2 32.1 L POC ABG pO2 62 L Sodium Potassium Chloride Carbon Dioxide BUN Creatinine Glucose Lactic Acid 2.9 H* Calcium AST Total Protein Albumin Urine Creatinine Crossmatch 10/05/16 10/05/16 10/05/16 04:00 04:00 05:35 WBC 16.8 H RBC 2.32 L Hgb 6.7 L Hct 20.2 L RDW 16.7 H Plt Count 87 L Seg Neuts % (Manual) Lymphocytes % (Manual) Monocytes % (Manual) Lymphocytes # (Manual) Monocytes # (Manual) PT INR APTT Heparin Anti-Xa Level POC ABG pH 7.223 L POC ABG pCO2 59.9 H POC ABG pO2 68 L Sodium 151 H Potassium Chloride 115.8 H Carbon Dioxide BUN 29 H Creatinine 1.7 H Glucose 142 H Lactic Acid Calcium 6.4 L AST Total Protein Albumin Urine Creatinine Crossmatch 10/05/16 10/05/16 10/06/16 08:38 17:05 03:44 WBC RBC Hgb Hct RDW Plt Count Seg Neuts % (Manual) Lymphocytes % (Manual) Monocytes % (Manual) Lymphocytes # (Manual) Monocytes # (Manual) PT INR APTT Heparin Anti-Xa Level POC ABG pH 7.348 L POC ABG pCO2 45.7 H POC ABG pO2 149 H 151 H Sodium Potassium Chloride Carbon Dioxide BUN Creatinine Glucose Lactic Acid Calcium AST Total Protein Albumin Urine Creatinine Crossmatch 01/04/1510/06/16 10/07/16 05:50 05:50 05:45 WBC 16.8 H RBC Hgb Hct RDW 15.6 H 16.2 H Plt Count 76 L 95 L Seg Neuts % (Manual) Lymphocytes % (Manual) Monocytes % (Manual) Lymphocytes # (Manual) Monocytes # (Manual) PT INR APTT Heparin Anti-Xa Level POC ABG pH POC ABG pCO2 POC ABG pO2 Sodium Potassium Chloride 109.4 H Carbon Dioxide BUN 23 H Creatinine 1.5 H Glucose 104 H Lactic Acid Calcium 7.6 L D AST Total Protein Albumin Urine Creatinine Crossmatch 10/07/16 10/07/16 10/07/16 05:45 05:45 06:09 WBC RBC Hgb Hct RDW Plt Count Seg Neuts % (Manual) Lymphocytes % (Manual) Monocytes % (Manual) Lymphocytes # (Manual) Monocytes # (Manual) PT INR APTT Heparin Anti-Xa Level 0.23 L POC ABG pH POC ABG pCO2 27.8 L POC ABG pO2 78 L Sodium Potassium Chloride Carbon Dioxide 21 L BUN 29 H Creatinine 2.0 H Glucose 142 H Lactic Acid Calcium 7.4 L AST Total Protein Albumin Urine Creatinine Crossmatch 10/08/16 10/08/16 10/08/16 04:02 05:40 05:40 WBC 32.1 H RBC Hgb Hct RDW 16.5 H Plt Count 104 L Seg Neuts % (Manual) Lymphocytes % (Manual) Monocytes % (Manual) Lymphocytes # (Manual) Monocytes # (Manual) PT INR APTT Heparin Anti-Xa Level POC ABG pH 7.309 L POC ABG pCO2 32.9 L POC ABG pO2 68 L Sodium 135 L Potassium Chloride Carbon Dioxide 19 L BUN 46 H Creatinine 3.5 H D Glucose 126 H Lactic Acid Calcium 6.9 L AST Total Protein Albumin Urine Creatinine Crossmatch Chest x-ray: report reviewed, image reviewed
[2016-10-08] MEDS ORDERED: MORPHINE IV PRN (11:21)
--- NOTE | 2016-10-08 11:36 | Progress Note ---
Assessment and Plan Assessment and plan: Patient is a 55 year female with hx of peripheral vascular disease, s/p right AKA and Ureteral stent which was planned for exchange on and patient had been discontinued from her chronic anticoauglation for the planned exachanged. 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 Patient is DO NOT RESUSCITATE/DO NOT INTUBATE. Hospice company to evaluate the patient at noon, she is for transfer to inpatient hospice. Family were at bedside when she was extubated. History Interval history: Family has come to the decision that he would like to withdraw life support. Would also like to make her DNR/DNI, and he wants withdrawal life support today , and hospice company will come and evaluate her for inpatient hospice this afternoon. Hospitalist Physical - Physical exam Narrative exam: General: In no distress HEENT: MMM, EOMI cardiac: S1-S2 heard lungs: clear to auscultation, abdomen: soft, nontender, nondistended bowel sounds positive extremities: no edema clubbing or cyanosis Skin: no rash or lesion Neuro: Opens eyes with deep sternal rub, when she was extubated she coughed and expressed discomfort. She is nonverbal, she's not obeying commands. - Constitutional Vitals: Temp Pulse Resp BP Pulse Ox 97.7 F 113 H 18 91/64 92 10/08/16 07:42 10/08/16 10:45 10/08/16 10:45 10/08/16 10:45 10/08/16 10:45 General appearance: Present: severe distress (severe abdominal pain) Results - Labs CBC & Chem 7: 10/08/16 05:40 10/08/16 05:40 Labs: Laboratory Last Values WBC 32.1 K/mm3 (4.5-11.0) H 10/08/16 05:40 RBC 4.34 M/mm3 (3.65-5.03) 10/08/16 05:40 Hgb 12.3 gm/dl (10.1-14.3) 10/08/16 05:40 Hct 38.5 % (30.3-42.9) 10/08/16 05:40 MCV 89 fl (79-97) 10/08/16 05:40 MCH 28 pg (28-32) 10/08/16 05:40 MCHC 32 % (30-34) 10/08/16 05:40 RDW 16.5 % (13.2-15.2) H 10/08/16 05:40 Plt Count 104 K/mm3 (140-440) L 10/08/16 05:40 Add Manual Diff Complete 10/03/16 17:45 Total Counted 100 10/03/16 17:45 Seg Neuts % (Manual) 41.0 % (40.0-70.0) 10/03/16 17:45 Band Neutrophils % 42.0 % 10/03/16 17:45 Lymphocytes % (Manual) 9.0 % (13.4-35.0) L 10/03/16 17:45 Reactive Lymphs % (Man) 0 % 10/03/16 17:45 Monocytes % (Manual) 4.0 % (0.0-7.3) 10/03/16 17:45 Eosinophils % (Manual) 1.0 % (0.0-4.3) 10/03/16 17:45 Basophils % (Manual) 0 % (0.0-1.8) 10/03/16 17:45 Metamyelocytes % 2.0 % 10/03/16 17:45 Myelocytes % 1.0 % 10/03/16 17:45 Promyelocytes % 0 % 10/03/16 17:45 Blast Cells % 0 % 10/03/16 17:45 Nucleated RBC % Not Reportable 10/03/16 17:45 Seg Neutrophils # Man 4.2 K/mm3 (1.8-7.7) 10/03/16 17:45 Band Neutrophils # 4.3 K/mm3 10/03/16 17:45 Lymphocytes # (Manual) 0.9 K/mm3 (1.2-5.4) L 10/03/16 17:45 Abs React Lymphs (Man) 0.0 K/mm3 10/03/16 17:45 Monocytes # (Manual) 0.4 K/mm3 (0.0-0.8) 10/03/16 17:45 Eosinophils # (Manual) 0.1 K/mm3 (0.0-0.4) 10/03/16 17:45 Basophils # (Manual) 0.0 K/mm3 (0.0-0.1) 10/03/16 17:45 Metamyelocytes # 0.2 K/mm3 10/03/16 17:45 Myelocytes # 0.1 K/mm3 10/03/16 17:45 Promyelocytes # 0.0 K/mm3 10/03/16 17:45 Blast Cells # 0.0 K/mm3 10/03/16 17:45 WBC Morphology Not Reportable 10/03/16 17:45 Hypersegmented Neuts Not Reportable 10/03/16 17:45 Hyposegmented Neuts Not Reportable 10/03/16 17:45 Hypogranular Neuts Not Reportable 10/03/16 17:45 Smudge Cells Not Reportable 10/03/16 17:45 Toxic Granulation Not Reportable 10/03/16 17:45 Toxic Vacuolation Not Reportable 10/03/16 17:45 Dohle Bodies Not Reportable 10/03/16 17:45 Pelger-Huet Anomaly Not Reportable 10/03/16 17:45 Len Rods Not Reportable 10/03/16 17:45 Platelet Estimate Appears decreased 10/03/16 17:45 Clumped Platelets Not Reportable 10/03/16 17:45 Plt Clumps, EDTA Not Reportable 10/03/16 17:45 Large Platelets Not Reportable 10/03/16 17:45 Giant Platelets Not Reportable 10/03/16 17:45 Platelet Satelliting Not Reportable 10/03/16 17:45 Plt Morphology Comment Not Reportable 10/03/16 17:45 RBC Morphology Not Reportable 10/03/16 17:45 Dimorphic RBCs Not Reportable 10/03/16 17:45 Polychromasia Not Reportable 10/03/16 17:45 Hypochromasia Not Reportable 10/03/16 17:45 Poikilocytosis 1+ 10/03/16 17:45 Anisocytosis 1+ 10/03/16 17:45 Microcytosis Not Reportable 10/03/16 17:45 Macrocytosis Not Reportable 10/03/16 17:45 Spherocytes Not Reportable 10/03/16 17:45 Pappenheimer Bodies Not Reportable 10/03/16 17:45 Sickle Cells Not Reportable 10/03/16 17:45 Target Cells Not Reportable 10/03/16 17:45 Tear Drop Cells Not Reportable 10/03/16 17:45 Ovalocytes Not Reportable 10/03/16 17:45 Helmet Cells Not Reportable 10/03/16 17:45 [facility] Bodies Not Reportable 10/03/16 17:45 [place] Rings Not Reportable 10/03/16 17:45 Jv Cells Not Reportable 10/03/16 17:45 Bite Cells Not Reportable 10/03/16 17:45 Crenated Cell Not Reportable 10/03/16 17:45 Elliptocytes Not Reportable 10/03/16 17:45 Acanthocytes (Spur) Not Reportable 10/03/16 17:45 Rouleaux Not Reportable 10/03/16 17:45 Hemoglobin C Crystals Not Reportable 10/03/16 17:45 Schistocytes Not Reportable 10/03/16 17:45 Malaria parasites Not Reportable 10/03/16 17:45 Jackson Bodies Not Reportable 10/03/16 17:45 Hem Pathologist Commnt No 10/03/16 17:45 PT 27.7 Sec. (12.2-14.9) H 10/04/16 15:20 INR 2.57 (0.87-1.13) H 10/04/16 15:20 APTT 111.9 Sec. (24.2-36.6) H* 10/04/16 15:20 Heparin Anti-Xa Level 0.35 U.I./ml (0.3-0.7) 10/08/16 05:40 POC ABG pH 7.309 (7.35-7.45) L 10/08/16 04:02 POC ABG pCO2 32.9 (35-45) L 10/08/16 04:02 POC ABG pO2 68 (80-105) L 10/08/16 04:02 POC ABG HCO3 16.5 10/08/16 04:02 POC ABG Total CO2 18 10/08/16 04:02 POC ABG O2 Sat 92 10/08/16 04:02 POC ABG Base Excess -10 10/08/16 04:02 FiO2 40 % 10/08/16 04:02 Sodium 135 mmol/L (137-145) L 10/08/16 05:40 Potassium 4.7 mmol/L (3.6-5.0) 10/08/16 05:40 Chloride 101.3 mmol/L (98-107) 10/08/16 05:40 Carbon Dioxide 19 mmol/L (22-30) L 10/08/16 05:40 Anion Gap 19 mmol/L 10/08/16 05:40 BUN 46 mg/dL (7-17) H 10/08/16 05:40 Creatinine 3.5 mg/dL (0.7-1.2) H D 10/08/16 05:40 Estimated GFR 16 ml/min 10/08/16 05:40 BUN/Creatinine Ratio 13.14 % 10/08/16 05:40 Glucose 126 mg/dL (65-100) H 10/08/16 05:40 Hemoglobin A1c 5.8 % (4-6) 10/02/16 01:58 Lactic Acid 1.8 mmol/L (0.7-2.0) 10/05/16 04:00 Calcium 6.9 mg/dL (8.4-10.2) L 10/08/16 05:40 Phosphorus 3.0 mg/dL (2.5-4.5) 10/06/16 05:50 Magnesium 2.0 mg/dL (1.7-2.3) 10/06/16 05:50 Total Bilirubin 0.2 mg/dL (0.1-1.2) 10/03/16 17:45 AST 78 units/L (5-40) H 10/03/16 17:45 ALT 35 units/L (7-56) 10/03/16 17:45 Alkaline Phosphatase 55 units/L (35-129) 10/03/16 17:45 Troponin T < 0.010 ng/mL (0.00-0.029) 10/02/16 06:26 Total Protein 2.9 g/dL (6.3-8.2) L D 10/03/16 17:45 Albumin 1.4 g/dL (3.9-5) L 10/03/16 17:45 Albumin/Globulin Ratio 0.9 % 10/03/16 17:45 Lipase 32 units/L (13-60) 10/02/16 01:03 Urine Color Yellow (Yellow) 10/02/16 01:50 Urine Turbidity Clear (Clear) 10/02/16 01:50 Urine pH 6.0 (5.0-7.0) 10/02/16 01:50 Ur Specific [place] 1.011 (1.003-1.030) 10/02/16 01:50 Urine Protein 30 mg/dl mg/dL (Negative) 10/02/16 01:50 Urine Glucose (UA) >=500 mg/dL (Negative) 10/02/16 01:50 Urine Ketones Tr mg/dL (Negative) 10/02/16 01:50 Urine Blood Mod (Negative) 10/02/16 01:50 Urine Nitrite Neg (Negative) 10/02/16 01:50 Urine Bilirubin Neg (Negative) 10/02/16 01:50 Urine Urobilinogen < 2.0 mg/dL (<2.0) 10/02/16 01:50 Ur Leukocyte Esterase Lg (Negative) 10/02/16 01:50 Urine WBC (Auto) 19.0 /HPF (0.0-6.0) H 10/02/16 01:50 Urine RBC (Auto) 15.0 /HPF (0.0-6.0) 10/02/16 01:50 U Epithel Cells (Auto) 10.0 /HPF (0-13.0) 10/02/16 01:50 Urine Bacteria (Auto) 1+ /HPF (Negative) 10/02/16 01:50 Urine Mucus Few /HPF 10/02/16 01:50 Urine Creatinine 53.3 mg/dL (0.1-20.0) H 10/04/16 03:58 Urine Sodium 96 mEq/L 10/04/16 03:58 Blood Type A POSITIVE 10/03/16 14:25 Antibody Screen Negative 10/03/16 14:25 Crossmatch See Detail 10/03/16 14:25
[2016-10-08] MEDS: PEPCID IV SCH (11:43)
--- NOTE | 2016-10-08 11:55 | Discharge Summary ---
Providers - Providers Date of Admission: 10/02/16 05:46 Attending physician: HARMEET SALAS MD 10/03/16 09:29 Consult to Physician [CONS] Routine Consulting Provider: DAVIN MURRAY Reason For Exam: ischemic bowel Place consult to:: DR. MURRAY Notified:: OFFICE Phone number called:: [phone] Was contact made?: Yes If yes, spoke with:: IVANNA Brantley called:: 10:23 Comment:: GAIL NOTIFIED 10/03/16 12:16 Consult to Physician [CONS] Routine Consulting Provider: AMERICO MARCELO Reason For Exam: r/o mesenteric ischemia Place consult to:: [facility] Notified:: DR. BOWMAN Phone number called:: IN HOUSE Was contact made?: Yes If yes, spoke with:: DR. BOWMAN Time called:: 13:05 Comment:: DR. MURRAY SPOKE WITH DR. BOWMAN 10/03/16 17:17 Consult to Dietitian/Nutrition [CONS] Routine Physician Instructions: Reason For Exam: INTUBATED Reason for Consult: Malnutrition 10/03/16 20:16 Consult to Physician [CONS] Routine Consulting Provider: MERNA DAVIS Reason For Exam: ischemic bowel Place consult to:: dr. davis aware of [email or web address] Notified:: yes Phone number called:: [phone] Was contact made?: Yes If yes, spoke with:: @[id number] Time called:: 22:15 10/03/16 20:19 Consult to Physician [CONS] Routine Consulting Provider: MATT GUTIÉRREZ Reason For Exam: ELLIOTT Place consult to:: [facility] Notified:: dr gutiérrez Phone number called:: [phone] Was contact made?: Yes If yes, spoke with:: dr gutiérrez Time called:: 08:15 10/05/16 01:09 Consult to Dietitian/Nutrition [CONS] Routine Physician Instructions: Reason For Exam: Reason for Consult: Evaluate nutritional intake Primary care physician: FISH PITCHER Hospitalization Condition: Stable Hospital course: Patient is a 55 year female with hx of peripheral vascular disease, s/p right AKA and Ureteral stent which was planned for exchange on and patient had been discontinued from her chronic anticoauglation for the planned exachanged. she presented to the ER with complaints of abdominal pain. She was found to have SMA thromboses and small bowel ischemia. She went on to have exploratory laparoscopy and terminal ileostomy. She also had SMA thrombectomy by vascular surgery. Unfortunately she continued to reiterate, she had a second look exploratory which unfortunately showed necrotic bowel. Patient continued to worsen, she suffered multiorgan failure including kidney failure, she was vent dependent and shock requiring pressors. As she continued to deteriorate, the family was made aware that it was extremely unlikely that she would ever recover given the amount of necrotic bowel in place. The decision was made to take her off the ventilator. Ventilator was withdrawn shortly after that patient Disposition: Time spent for discharge: 35 minutes Core Measure Documentation - Palliative Care Palliative Care/ Comfort Measures: Not Applicable - Core Measures Any of the following diagnoses?: none Exam - Physical Exam Narrative exam: No signs of life, patient is - Constitutional Vitals: Temp Pulse Resp BP Pulse Ox 97.7 F 113 H 18 91/64 92 10/08/16 07:42 10/08/16 10:45 10/08/16 10:45 10/08/16 10:45 10/08/16 10:45 Plan Follow up with: WILEY FLORES MD [Primary Care Provider] - 3-5 Days
[2016-10-08 12:04] VITALS: BP 91/64
--- NOTE | 2016-10-08 12:09 | Event Note ---
Nurse alerted me that patient stopped breathing and had no pulse. I personally examined the patient patient has active signs of eye. Patient was pronounced by me, at time of 11:55 AM
== END 2016-10-08 12:00 | DRG 853 ==
LOC: ED 23:25 → 3A 10-02 05:46 → CC1 10-03 18:10 → UNDODISIN 10-05 16:00
PROVIDERS: ADMIT Internal Medicine; ATTEND Internal Medicine
PROC: 0DTF0ZZ Resection of Right Large Intestine, Open Approach (ICD-10-PCS; principal; 2016-10-03)
PROC: 0DT80ZZ Resection of Small Intestine, Open Approach (ICD-10-PCS; 2016-10-03)
PROC: 04C50ZZ Extirpation of Matter from Superior Mesenteric Artery, Open Approach (ICD-10-PCS; 2016-10-03)
PROC: 04U Lower Arteries, Supplement (ICD-10-PCS; 2016-10-03)
PROC: 047 Lower Arteries, Dilation (ICD-10-PCS; 2016-10-03)
PROC: 04BY0ZZ Excision of Lower Artery, Open Approach (ICD-10-PCS; 2016-10-03)
PROC: 3E03317 Introduction of Other Thrombolytic into Peripheral Vein, Percutaneous Approach (ICD-10-PCS; 2016-10-03)
PROC: 30233N1 Transfusion of Nonautologous Red Blood Cells into Peripheral Vein, Percutaneous Approach (ICD-10-PCS; 2016-10-03)
PROC: 05HM33Z Insertion of Infusion Device into Right Internal Jugular Vein, Percutaneous Approach (ICD-10-PCS; 2016-10-03)
PROC: 0BH17EZ Insertion of Endotracheal Airway into Trachea, Via Natural or Artificial Opening (ICD-10-PCS; 2016-10-03)
PROC: 5A1955Z Respiratory Ventilation, Greater than 96 Consecutive Hours (ICD-10-PCS; 2016-10-03)
PROC: 04C50ZZ Extirpation of Matter from Superior Mesenteric Artery, Open Approach (ICD-10-PCS; 2016-10-04)
PROC: 0D1B0Z4 Bypass Ileum to Cutaneous, Open Approach (ICD-10-PCS; 2016-10-04)
PROC: 0DBB0ZZ Excision of Ileum, Open Approach (ICD-10-PCS; 2016-10-05)
DX: A41.9 Sepsis, unspecified organism (principal); K55.049 Acute infarction of large intestine, extent unspecified; K55.029 Acute infarction of small intestine, extent unspecified; N17.0 Acute kidney failure with tubular necrosis; R65.21 Severe sepsis with septic shock; J96.01 Acute respiratory failure with hypoxia; I13.0 Hypertensive heart and chronic kidney disease with heart failure and stage 1 through stage 4 chronic kidney disease, or unspecified chronic kidney disease; N39.0 Urinary tract infection, site not specified; E87.2 Acidosis; D68.9 Coagulation defect, unspecified; I50.9 Heart failure, unspecified; N18.2 Chronic kidney disease, stage 2 (mild); I73.9 Peripheral vascular disease, unspecified; F17.210 Nicotine dependence, cigarettes, uncomplicated; E87.6 Hypokalemia; R73.9 Hyperglycemia, unspecified; K52.9 Noninfective gastroenteritis and colitis, unspecified; I25.10 Atherosclerotic heart disease of native coronary artery without angina pectoris; D72.829 Elevated white blood cell count, unspecified; D64.9 Anemia, unspecified; Z86.718 Personal history of other venous thrombosis and embolism; Z87.442 Personal history of urinary calculi; Z89.511 Acquired absence of right leg below knee; Z79.899 Other long term (current) drug therapy; Z82.49 Family history of ischemic heart disease and other diseases of the circulatory system; Z95.5 Presence of coronary angioplasty implant and graft; Z87.440 Personal history of urinary (tract) infections; Z89.611 Acquired absence of right leg above knee; Z66 Do not resuscitate
CPT/HCPCS: 36415; 36600; 71010; 74000; 74020; 74177; 80048; 80053; 81001; 82140; 82271; 82570; 82803; 83036; 83690; 83735; 84100; 84300; 84484; 85007; 85014; 85018; 85025; 85027; 85049; 85520; 85610; 85730; 86850; 86900; 86901; 86920; 87040; 87070; 87086; 87205; 88304; 88307; 93005; 93010; 94002; 94003; 94760; 96365; 96366; 96375; 96376; C1757; J0171; J0330; J0360; J0696; J1170; J1644; J1956; J2060; J2250; J2270; J2370; J2405; J2997; J3010; J3480; J7030; J7040; J7050; J7070; P9016; Q9966